=== PATIENT | male | born 1955 | race Hispanic/Latino ===

== ENCOUNTER 2019-02-01 22:55 | Inpatient (IN) | payer OTHER ==
--- NOTE | 2019-02-01 23:32 | Emergency Department Report ---
ED Shortness of Breath HPI - General Chief Complaint: Dyspnea/Respdistress Stated Complaint: DIFFICULTY IN BREATHING Time Seen by Provider: 02/01/19 23:22 Source: patient, EMS Mode of arrival: Stretcher Limitations: No Limitations - History of Present Illness Initial Comments: Patient is 64 years old male with history of diabetes and coronary artery dis ease status post stents. Patient presented to the emergency room via EMS for evaluation of respiratory distress and hypoxia. Patient initial oxygen saturation by EMS was 64%. Patient received albuterol 5 mg and he is oxygen saturation increased to 96%. Patient stated that he was doing well until this morning when he ate a big Mac with fries and have a smoke. Patient denied any chest pain, fever, nausea or vomiting. MD Complaint: shortness of breath - Related Data Allergies Allergy/AdvReac Type Severity Reaction Status Date / Time No Known Allergies Allergy Verified 02/02/19 00:42 ED Review of Systems ROS: Stated complaint: DIFFICULTY IN BREATHING Other details as noted in HPI Comment: All other systems reviewed and negative Constitutional: denies: chills, fever Respiratory: shortness of breath, SOB with exertion, SOB at rest, wheezing. denies: cough, orthopnea, stridor Cardiovascular: denies: chest pain, palpitations Gastrointestinal: denies: abdominal pain, nausea, vomiting, diarrhea, constipation, hematemesis, hematochezia Musculoskeletal: denies: back pain Neurological: denies: headache, weakness, numbness, paresthesias, confusion ED Past Medical Hx - Past Medical History Previous Medical History?: Yes Hx Heart Attack/AMI: Yes (stent placed) Hx Diabetes: Yes - Surgical History Past Surgical History?: Yes Additional Surgical History: stent placed - Social History Smoking Status: Current Every Day Smoker Substance Use Type: Alcohol ED Physical Exam - General Limitations: No Limitations General appearance: alert, in distress (moderate respiratory distress) - Head Head exam: Present: atraumatic, normocephalic, normal inspection - Eye Eye exam: Present: normal appearance, PERRL - ENT ENT exam: Present: normal exam, normal orophraynx, mucous membranes moist - Neck Neck exam: Present: normal inspection, full ROM. Absent: tenderness, meningismus, lymphadenopathy, thyromegaly - Respiratory Respiratory exam: Present: wheezes, rales, rhonchi. Absent: stridor, accessory muscle use, decreased breath sounds, prolonged expiratory - Cardiovascular Cardiovascular Exam: Present: regular rate, normal rhythm, normal heart sounds - GI/Abdominal GI/Abdominal exam: Present: soft, normal bowel sounds. Absent: distended, tenderness, guarding, rebound, rigid, organomegaly, mass, bruit, pulsatile mass - Extremities Exam Extremities exam: Present: normal inspection, full ROM, normal capillary refill. Absent: pedal edema, calf tenderness - Back Exam Back exam: Present: normal inspection, full ROM - Neurological Exam Neurological exam: Present: alert, oriented X3, CN II-XII intact, normal gait - Skin Skin exam: Present: warm, intact, normal color ED Course Vital Signs 02/01/19 02/01/19 02/01/19 23:09 23:20 23:30 Temperature 98.2 F Pulse Rate 101 H 99 H 94 H Respiratory 20 32 H 22 Rate Blood Pressure 148/75 149/72 O2 Sat by Pulse 94 94 96 Oximetry 02/01/19 02/02/19 02/02/19 23:45 00:00 00:02 Temperature Pulse Rate 94 H 94 H Respiratory 27 H 22 24 Rate Blood Pressure 164/69 169/75 O2 Sat by Pulse 94 94 95 Oximetry - Consultations Consultation #1: 02/02/19 00:33 I discussed the patient is Dr. Elkins from cardiology. He advised to admit the patient to hospitalist and he will follow-up with the patient. ED Medical Decision Making - Lab Data Result diagrams: 02/01/19 23:36 02/01/19 23:36 - EKG Data -: EKG Interpreted by Pa EKG shows normal: sinus rhythm Rate: normal - EKG Data Interpretation: no acute changes - Radiology Data Radiology results: report reviewed Chest x-ray is unremarkable. - Medical Decision Making Patient is 64 years old male with history of diabetes and coronary artery dise ase status post stents. Patient presented to the emergency room via EMS for evaluation of respiratory distress and hypoxia. Patient initial oxygen saturation by EMS was 64%. Patient received albuterol 5 mg and he is oxygen saturation increased to 96%. Patient stated that he was doing well until this morning when he ate a big Mac with fries and have a smoke. Patient denied any chest pain, fever, nausea or vomiting. Patient EKG is unremarkable was no ST elevation. Chest x-ray is negative for acute finding. Patient troponin is elevated to 0.26. I discussed the patient is Dr. Elkins, he stated to admit the patient and will follow up with the patient in the hospital. Patient developed atrial fibrillation with RVR with a heart rate of 138. I gave him a bolus of 10 mg Cardizem and started patient on Cardizem drip. I discussed the patient is Dr. Alessandra Barr, she agreed to admit the patient to medical service. Critical Care Time: Yes Critical care time in (mins) excluding proc time.: 30 Critical care attestation.: If time is entered above; I have spent that time in minutes in the direct care of this critically ill patient, excluding procedure time. ED Disposition Clinical Impression: Shortness of breath, CHF exacerbation, Atrial fibrillation with RVR, Hyper glycemia, Non-ST elevated myocardial infarction Disposition: OP ADMIT IP TO THIS HOSP Is pt being admited?: Yes Condition: Stable Instructions: Angina (ED)
[2019-02-01 23:50] LABS: Basophils # (Auto) 0.1 K/mm3 (0.0-0.1); Basophils % (Auto) 0.6 % (0.0-1.8); Eosinophils # (Auto) 0.1 K/mm3 (0.0-0.4); Eosinophils % (Auto) 0.6 % (0.0-4.3); Hematocrit 41.6 % (35.5-45.6); Hemoglobin 14.2 gm/dl (11.8-15.2); Lymphocytes # (Auto) 1.6 K/mm3 (1.2-5.4); Lymphocytes % (Auto) 13.6 % (13.4-35.0); Mean Corpuscular HGB Conc 34 % (32-34); Mean Corpuscular Volume 88 fl (84-94); Monocytes # (Auto) 0.7 K/mm3 (0.0-0.8); Monocytes % (Auto) 5.8 % (0.0-7.3); Platelet Count 191 K/mm3 (140-440); Red Blood Count 4.72 M/mm3 (3.65-5.03); Red Cell Distribution Width 12.8 % (13.2-15.2)
--- NOTE | 2019-02-02 00:03 | XRay Report ---
PROCEDURE: XR CHEST 1V AP TECHNIQUE: Chest radiograph single view. HISTORY: Dyspnea COMPARISONS: None . FINDINGS: Heart: Normal. Mediastinum/Vessels: Normal. Lungs/Pleural space: Lungs are expanded. There are no acute infiltrates. There is no pleural effusio n or pneumothorax.. Bony thorax: No acute osseous abnormality. Life support devices: None. IMPRESSION: No acute cardiopulmonary abnormality. This document is electronically signed by Papa Wallis MD., February 02 2019 12:01:32 AM ET
[2019-02-02 00:09] LABS: BUN/Creatinine Ratio 13; Blood Urea Nitrogen 15 mg/dL (9-20); Hemolysis Index 23
[2019-02-02 00:12] LABS: Alanine Aminotransferase 12 units/L (7-56); Albumin 3.4 g/dL (3.9-5)
[2019-02-02 00:13] LABS: Bilirubin,Direct < 0.2 mg/dL (0-0.2)
[2019-02-02 00:18] LABS: INR 0.87 (0.87-1.13)
[2019-02-02 00:19] LABS: Partial Thromboplastin Time 27.5 Sec. (24.2-36.6)
[2019-02-02] MEDS ORDERED: LASIX IV ONE (00:24)
[2019-02-02] MEDS ORDERED: HumuLIN R IV ONE (00:24)
[2019-02-02] MEDS ORDERED: BABY ASPIRIN PO ONE (00:25)
[2019-02-02] MEDS ORDERED: CARDIZEM IV ONE (00:38)
[2019-02-02] MEDS ORDERED: CARDIZEM 100 MG in D5W 80 ML IV SCH ×2 (01:00→14:00)
[2019-02-02] MEDS ORDERED: SODIUM CHLORIDE FLUSH SYRINGE 10 ML IV PRN (01:13)
[2019-02-02] MEDS ORDERED: ZOFRAN IV PRN (01:13)
[2019-02-02] MEDS ORDERED: LOVENOX SUB-Q SCH (01:16)
[2019-02-02] MEDS ORDERED: D50W (25GM) Syringe IV PRN (01:17)
[2019-02-02] MEDS ORDERED: LANTUS SUB-Q ONE (01:18)
--- NOTE | 2019-02-02 01:18 | History and Physical Report ---
History of Present Illness Date of examination: 02/02/19 History of present illness: 64-year-old man with a history of hypertension, diabetes, coronary artery disease comes emergency room with complaints of chest pain that has been intermittent over the last 3 weeks. Pain is in the left substernal area which she describes a sharp pain, constant today, intensity 6/10, on radiating into bilateral arms, left greater than right, relieved with IV morphine. He took several aspirins today, Tums without any significant improvement in his pain. Admits to shortness of breath, diaphoresis, nausea vomiting no palpitation. In the emergency room and was found to be in A. fib, started on a Cardizem drip Review of systems Constitutional: no weight loss, chills, fever Ears, eyes, nose, mouth and throat: no nasal congestion, no nasal discharge, no sinus pressure, no vision change, no red eye. Neck: No neck pain or rigidity. Cardiovascular: no palpitations Respiratory: no cough, +shortness of breath Gastrointestinal: no hematochezia, abdominal pain Genitourinary : no frequency , no hematuria Musculoskeletal: no joint swelling or muscle ache Integumentary: no rash, no pruritis Neurological: no parathesias, no focal weakness Endocrine: no cold or heat intolerance, no polyuria or polydipsia Hematologic/Lymphatic: no easy bruising, no easy bleeding, no gland swelling Allergic/Immunologic: no urticaria, no angioedema. PAST MEDICAL HISTORY:hypertension, diabetes, coronary artery disease PAST SURGICAL HISTORY: None SOCIAL HISTORY: Denies alcohol, drugs, smoke 1 pack daily FAMILY HISTORY: Hypertension Medications and Allergies Allergies Allergy/AdvReac Type Severity Reaction Status Date / Time No Known Allergies Allergy Verified 02/02/19 00:42 Active Meds: Active Medications Acetaminophen (Tylenol) 650 mg PO Q4H PRN PRN Reason: Pain MILD(1-3)/Fever >100.5/ESPINOZA Albuterol/Ipratropium (Duoneb *Not For Prn Use*) 1 ampul IH Q6HRT MELINA Dextrose (D50w (25gm) Syringe) 50 ml IV PRN PRN PRN Reason: Hypoglycemia Enoxaparin Sodium (Lovenox) 100 mg 1 mg/kg (100 mg) SUB-Q Q12H MELINA Diltiazem HCl 100 mg/ Dextrose 100 mls @ 5 mls/hr IV DIRECT MELINA; Protocol Insulin Human Lispro (Humalog) 0 unit SUB-Q ACHS MELINA; Protocol Morphine Sulfate (Morphine) 2 mg IV Q4H PRN PRN Reason: Pain, Moderate (4-6) Ondansetron HCl (Zofran) 4 mg IV Q4H PRN PRN Reason: Nausea And Vomiting Sodium Chloride (Sodium Chloride Flush Syringe 10 Ml) 10 ml IV BID MELINA Sodium Chloride (Sodium Chloride Flush Syringe 10 Ml) 10 ml IV PRN PRN PRN Reason: LINE FLUSH Exam - Physical Exam Narrative exam: General Apperance: The patient lying in bed, breathing comfortable HEENT: Normocephalic, atraumatic. Pupils equally round and reactive to light, EOMI, no sclericterus or JVD or thyromegaly or nodule. , no carotid bruit, mucous membranes moist, no exudate or erythema Heart: S1-S2, regular is rhythm Lungs: Clear to auscultation bilaterally, breathing comfortable Abdomen: Positive bowel sounds, soft, nontender, nondistended, no organomegaly Extremities: No edema cyanosis clubbing Skin: no rash, nodule, warm and dry Neuro: cranial nerves 2-12 intact, speech is fluent, motor/sensory intact - Constitutional Vitals: Temp Pulse Resp BP Pulse Ox 98.2 F 94 H 24 169/75 95 02/01/19 23:09 02/02/19 00:00 02/02/19 00:02 02/02/19 00:00 02/02/19 00:02 Results - Labs CBC & Chem 7: 02/02/19 04:31 02/02/19 04:31 Labs: Abnormal lab results 02/01/19 02/01/19 02/01/19 Range/Units 23:36 23:36 23:36 WBC 12.0 H (4.5-11.0) K/mm3 RDW 12.8 L (13.2-15.2) % Seg Neutrophils % 79.4 H (40.0-70.0) % Seg Neutrophils # 9.5 H (1.8-7.7) K/mm3 Sodium 134 L (137-145) mmol/L Chloride 97.9 L (98-107) mmol/L Carbon Dioxide 21 L (22-30) mmol/L Glucose 406 H (75-100) mg/dL Troponin T 0.263 H* (0.00-0.029) ng/mL NT-Pro-B Natriuret Pep 1505 H (0-900) pg/mL Albumin 3.4 L (3.9-5) g/dL - Imaging and Cardiology EKG: report reviewed Chest x-ray: report reviewed Assessment and Plan Assessment A. fib with RVR Unstable angina Coronary artery disease Diabetes, uncontrolled Plan Admit to medicine Continue Cardizem drip Check cardiac enzymes, TSH, echo, consult cardiology Check fingersticks, give a dose of Lantus now, and start sliding scale Start full dose Lovenox, aspirin, DVT prophylaxis
[2019-02-02 01:54] LABS: Creatine Kinase MB 5.5 ng/mL (0.0-4.0)
[2019-02-02 02:09] LABS: Chol/HDL Ratio 3.97 %; HDL Cholesterol 34 mg/dL (40-59); LDL Cholesterol,Direct 92 mg/dL (50-130)
[2019-02-02] MEDS ORDERED: LOVENOX SUB-Q ONE (02:35)
[2019-02-02] MEDS: DUONEB *Not for PRN Use IH SCH ×2 (03:02→10:18)
[2019-02-02] MEDS: TYLENOL PO PRN ×2 (03:25→21:25)
[2019-02-02 05:06] LABS: Basophils % (Auto) 0.4 % (0.0-1.8); Eosinophils % (Auto) 0.4 % (0.0-4.3); Hematocrit 41.8 % (35.5-45.6); Hemoglobin 14.2 gm/dl (11.8-15.2); Lymphocytes # (Auto) 2.2 K/mm3 (1.2-5.4); Lymphocytes % (Auto) 16.6 % (13.4-35.0); Mean Corpuscular HGB Conc 34 % (32-34); Mean Corpuscular Volume 88 fl (84-94); Monocytes # (Auto) 0.9 K/mm3 (0.0-0.8); Monocytes % (Auto) 7.3 % (0.0-7.3); Platelet Count 200 K/mm3 (140-440); Red Blood Count 4.75 M/mm3 (3.65-5.03); Red Cell Distribution Width 12.9 % (13.2-15.2)
[2019-02-02 05:29] LABS: BUN/Creatinine Ratio 14; Blood Urea Nitrogen 15 mg/dL (9-20); Calcium 8.9 mg/dL (8.4-10.2); Hemolysis Index 26
[2019-02-02 07:17] LABS: Creatine Kinase MB 5.2 ng/mL (0.0-4.0)
[2019-02-02] MEDS: HumaLOG SUB-Q SCH ×4 (07:58→20:30)
[2019-02-02] MEDS ORDERED: KIONEX PO ONE (09:19)
[2019-02-02] MEDS: SODIUM CHLORIDE FLUSH SYRINGE 10 ML IV SCH ×2 (09:34→21:25)
[2019-02-02] MEDS ORDERED: BABY ASPIRIN PO SCH (10:00)
--- NOTE | 2019-02-02 10:13 | Event Note ---
Date: 02/02/19 Patient seen and examined, reports improvement with chest pain. Has long standing hx of DM And also Diabetic Neuropathy with chronic feet numbness. Also Tobacco abuse. Counselling and Compliance provided for over 20 mins. Patient verbalized understanding. Awaiting Cardiology Input. Obtain and Reconcile Med Rec.
--- NOTE | 2019-02-02 11:00 | Consultation ---
History of Present Illness - Reason for Consult Consult date: 02/02/19 Shortness of breath, Afib with RVR Requesting physician: JUANA BARRERA - History of Present Illness 64 y/o male admitted with chest pain, shortness of breath and other nonspecific symptoms about 1 weeks time. Per patient several dietary indiscretions led to this admission. While in ED was found to be in Afib with RVR and placed on Dilt drip. He has since converted to sinus and was started on lovenox BID dosing therapy. Past History Past Medical History: CAD Social history: smoking Medications and Allergies Allergies Allergy/AdvReac Type Severity Reaction Status Date / Time No Known Allergies Allergy Verified 02/02/19 00:42 Active Meds: Active Medications Acetaminophen (Tylenol) 650 mg PO Q4H PRN PRN Reason: Pain MILD(1-3)/Fever >100.5/[place]PINOZA Last Admin: 02/02/19 03:25 Dose: 650 mg Documented by: Aspirin (Baby Aspirin) 81 mg PO QDAY MELINA Last Admin: 02/02/19 09:34 Dose: 81 mg Documented by: Dextrose (D50w (25gm) Syringe) 50 ml IV PRN PRN PRN Reason: Hypoglycemia Enoxaparin Sodium (Lovenox) 100 mg 1 mg/kg (100 mg) SUB-Q Q12H MELINA Last Admin: 02/02/19 02:41 Dose: 100 mg Documented by: Diltiazem HCl 100 mg/ Dextrose 100 mls @ 5 mls/hr IV DIRECT MELINA; Protocol Last Admin: 02/02/19 02:41 Dose: 5 mg/hr, 5 mls/hr Documented by: Insulin Human Isoph/Insulin Regular (Humulin 70/30) 10 unit SUB-Q BIDDIAB MELINA Insulin Human Lispro (Humalog) 0 unit SUB-Q ACHS MELINA; Protocol Last Admin: 02/02/19 07:58 Dose: 4 unit Documented by: Morphine Sulfate (Morphine) 2 mg IV Q4H PRN PRN Reason: Pain, Moderate (4-6) Ondansetron HCl (Zofran) 4 mg IV Q4H PRN PRN Reason: Nausea And Vomiting Sodium Chloride (Sodium Chloride Flush Syringe 10 Ml) 10 ml IV BID MELINA Last Admin: 02/02/19 09:34 Dose: 10 ml Documented by: Sodium Chloride (Sodium Chloride Flush Syringe 10 Ml) 10 ml IV PRN PRN PRN Reason: LINE FLUSH Review of Systems All systems: negative Exam - Constitutional Vitals: Temp Pulse Resp BP Pulse Ox 98.7 F 78 24 120/60 95 02/02/19 03:57 02/02/19 10:30 02/02/19 10:30 02/02/19 10:30 02/02/19 10:30 General appearance: Present: no acute distress, well-nourished - EENT Eyes: Present: PERRL, EOM intact ENT: hearing intact, clear oral mucosa - Neck Neck: Present: supple, normal ROM - Respiratory Respiratory effort: normal Respiratory: bilateral: diminished - Cardiovascular Rhythm: regular Heart Sounds: Present: S1 & S2 - Extremities Extremities: no ischemia, pulses intact - Abdominal General gastrointestinal: Present: soft, non-tender, normal bowel sounds Male genitourinary: Present: deferred - Rectal Rectal Exam: deferred - Integumentary Integumentary: Present: clear, warm, dry - Musculoskeletal Musculoskeletal: strength equal bilaterally - Psychiatric Psychiatric: appropriate mood/affect Results - Labs CBC & Chem 7: 02/02/19 04:31 02/02/19 04:31 Labs: Abnormal lab results 02/01/19 02/01/19 02/01/19 Range/Units 23:36 23:36 23:36 WBC 12.0 H (4.5-11.0) K/mm3 RDW 12.8 L (13.2-15.2) % [place] # (0.0-0.8) K/mm3 Seg Neutrophils % 79.4 H (40.0-70.0) % Seg Neutrophils # 9.5 H (1.8-7.7) K/mm3 Sodium 134 L (137-145) mmol/L Chloride 97.9 L (98-107) mmol/L Carbon Dioxide 21 L (22-30) mmol/L Glucose 406 H (75-100) mg/dL CK-MB (CK-2) (0.0-4.0) ng/mL Troponin T 0.263 H* (0.00-0.029) ng/mL NT-Pro-B Natriuret Pep 1505 H (0-900) pg/mL Albumin 3.4 L (3.9-5) g/dL HDL Cholesterol 34 L (40-59) mg/dL 02/02/19 02/02/19 02/02/19 Range/Units 01:30 02:27 04:31 WBC 13.0 H (4.5-11.0) K/mm3 RDW 12.9 L (13.2-15.2) % [place] # 0.9 H (0.0-0.8) K/mm3 Seg Neutrophils % 75.3 H (40.0-70.0) % Seg Neutrophils # 9.8 H (1.8-7.7) K/mm3 Sodium (137-145) mmol/L Chloride (98-107) mmol/L Carbon Dioxide (22-30) mmol/L Glucose (75-100) mg/dL CK-MB (CK-2) 5.5 H (0.0-4.0) ng/mL Troponin T 0.312 H* 0.300 H* (0.00-0.029) ng/mL NT-Pro-B Natriuret Pep (0-900) pg/mL Albumin (3.9-5) g/dL HDL Cholesterol (40-59) mg/dL 02/02/19 02/02/19 Range/Units 04:31 06:46 WBC (4.5-11.0) K/mm3 RDW (13.2-15.2) % [place] # (0.0-0.8) K/mm3 Seg Neutrophils % (40.0-70.0) % Seg Neutrophils # (1.8-7.7) K/mm3 Sodium 136 L (137-145) mmol/L Chloride (98-107) mmol/L Carbon Dioxide (22-30) mmol/L Glucose 315 H (75-100) mg/dL CK-MB (CK-2) 5.2 H (0.0-4.0) ng/mL Troponin T 0.354 H* (0.00-0.029) ng/mL NT-Pro-B Natriuret Pep (0-900) pg/mL Albumin (3.9-5) g/dL HDL Cholesterol (40-59) mg/dL - Imaging and Cardiology Chest x-ray: report reviewed (Unable to see image in our system but per report, it is clear) Assessment and Plan 64 y/o male with known heart disease, admitted with Afib with RVR and worsening shortness of breath with chest pain, found to have an NSTEMI 1. Continue Anticoagulation for afib 2. Switch to PO meds for rate control 3. Feed patient, cardiac diet, per cards, no plans for invasive measures today 4. F/U echo 5. Restart Home insulin Stable for transfer to [facility]
--- NOTE | 2019-02-02 12:10 | Consultation ---
History of Present Illness Consult date: 02/02/19 Consult reason: chest pain History of present illness: He has a history of CAD, status post PCI at [facility] in December 2017. He claims that he used his antiplatelet regimen for about a month thereafter. He has not had cardiac follow-up since then. Yesterday, after eating a big Mac and some fries, he developed progressive shortness of breath prompting presentation to the emergency department. He claims that he has had exertional dyspnea for the past 2 months. He has no orthopnea. In addition, he mentions that 2 months ago, he experienced precordial chest pain for a while and took multiple doses of aspirin. He thinks that the pain has been less frequent lately. Cardiac enzymes are positive for NSTEMI. In the ER, he was noted to be in rapid atrial fibrillation. He received IV Diltiazem and has converted to SR. Past History Past Medical History: CAD, diabetes, hypertension, hyperlipidemia Past Surgical History: PTCA (at [facility] in 01/10) Social history: smoking. denies: alcohol abuse Family history: denies: CAD Medications and Allergies Allergies Allergy/AdvReac Type Severity Reaction Status Date / Time No Known Allergies Allergy Verified 02/02/19 00:42 Active Meds: Active Medications Acetaminophen (Tylenol) 650 mg PO Q4H PRN PRN Reason: Pain MILD(1-3)/Fever >100.5/ESPINOZA Last Admin: 02/02/19 03:25 Dose: 650 mg Documented by: Aspirin (Baby Aspirin) 81 mg PO QDAY [facility] Last Admin: 02/02/19 09:34 Dose: 81 mg Documented by: Dextrose (D50w (25gm) Syringe) 50 ml IV PRN PRN PRN Reason: Hypoglycemia Enoxaparin Sodium (Lovenox) 100 mg 1 mg/kg (100 mg) SUB-Q Q12H MELINA Last Admin: 02/02/19 02:41 Dose: 100 mg Documented by: Diltiazem HCl 100 mg/ Dextrose 100 mls @ 5 mls/hr IV DIRECT MELINA; Protocol Last Infusion: 02/02/19 10:05 Dose: 5 mg/hr, 5 mls/hr Documented by: Insulin Human Isoph/Insulin Regular (Humulin 70/30) 10 unit SUB-Q BIDDIAB MELINA Last Admin: 02/02/19 11:03 Dose: 10 unit Documented by: Insulin Human Lispro (Humalog) 0 unit SUB-Q ACHS [facility]; Protocol Last Admin: 02/02/19 07:58 Dose: 4 unit Documented by: Morphine Sulfate (Morphine) 2 mg IV Q4H PRN PRN Reason: Pain, Moderate (4-6) Ondansetron HCl (Zofran) 4 mg IV Q4H PRN PRN Reason: Nausea And Vomiting Sodium Chloride (Sodium Chloride Flush Syringe 10 Ml) 10 ml IV BID [facility] Last Admin: 02/02/19 09:34 Dose: 10 ml Documented by: Sodium Chloride (Sodium Chloride Flush Syringe 10 Ml) 10 ml IV PRN PRN PRN Reason: LINE FLUSH Review of Systems Constitutional: no fever, no chills Ears, nose, mouth and throat: no ear pain, no ear discharge, no sore throat Cardiovascular: chest pain, shortness of breath, no orthopnea, no palpitations, no lightheadedness Respiratory: shortness of breath, dyspnea on exertion, no cough, no hemoptysis Gastrointestinal: no abdominal pain, no nausea, no vomiting, no diarrhea, no constipation Genitourinary Male: no dysuria, no urinary frequency Rectal: no pain, no bleeding Musculoskeletal: no neck stiffness, no neck pain, no myalgias Integumentary: no rash, no pruritis Neurological: no weakness, no parathesias, no headaches Endocrine: no cold intolerance, no heat intolerance Hematologic/Lymphatic: no easy bruising, no easy bleeding Allergic/Immunologic: no urticaria, no wheezing Physical Examination Vital Signs Last Vital Signs Temp 98.7 F 02/02/19 03:57 Pulse 80 02/02/19 11:30 Resp 21 02/02/19 11:30 BP 136/70 02/02/19 11:30 Pulse Ox 95 02/02/19 11:30 General appearance: no acute distress HEENT: Positive: EOMI, Normocephaly, Mucus Membranes Moist Neck: Positive: neck supple, trachea midline Cardiac: Positive: Reg Rate and Rhythm, S1/S2 Lungs: Positive: clear to auscultation Neuro: Positive: Grossly Intact Abdomen: Positive: Soft, Active Bowel Sounds. Negative: Tender Skin: Positive: Clear. Negative: Rash Musculoskeletal: Normal Range of Motion Extremities: Present: normal. Absent: edema Results 02/02/19 04:31 02/02/19 04:31 Cardiac Enzymes 02/01/19 02/02/19 02/02/19 Range/Units 23:36 01:30 06:46 AST 15 (5-40) units/L CK-MB (CK-2) 5.5 H 5.2 H (0.0-4.0) ng/mL Coagulation 02/01/19 Range/Units 23:36 PT 12.3 (12.2-14.9) Sec. INR 0.87 (0.87-1.13) APTT 27.5 (24.2-36.6) Sec. Lipids 02/01/19 Range/Units 23:36 Triglycerides 93 (2-149) mg/dL Cholesterol 135 (50-199) mg/dL HDL Cholesterol 34 L (40-59) mg/dL Cholesterol/HDL Ratio 3.97 % CBC 02/01/19 02/02/19 Range/Units 23:36 04:31 WBC 12.0 H 13.0 H (4.5-11.0) K/mm3 RBC 4.72 4.75 (3.65-5.03) M/mm3 Hgb 14.2 14.2 (11.8-15.2) gm/dl Hct 41.6 41.8 (35.5-45.6) % Plt Count 191 200 (140-440) K/mm3 Lymph # 1.6 2.2 (1.2-5.4) K/mm3 [place] # 0.7 0.9 H (0.0-0.8) K/mm3 Eos # 0.1 0.0 (0.0-0.4) K/mm3 Baso # 0.1 0.0 (0.0-0.1) K/mm3 Comprehensive Metabolic Panel 02/01/19 02/01/19 02/02/19 Range/Units 23:36 23:36 04:31 Sodium 134 L 136 L (137-145) mmol/L Potassium 3.7 3.7 (3.6-5.0) mmol/L Chloride 97.9 L 101.1 (98-107) mmol/L Carbon Dioxide 21 L 22 (22-30) mmol/L BUN 15 15 (9-20) mg/dL Creatinine 1.2 1.1 (0.8-1.5) mg/dL Glucose 406 H 315 H (75-100) mg/dL Calcium 9.0 8.9 (8.4-10.2) mg/dL Direct Bilirubin < 0.2 (0-0.2) mg/dL Indirect Bilirubin 0.0 mg/dL AST 15 (5-40) units/L ALT 12 (7-56) units/L Alkaline Phosphatase 90 (35-129) units/L Total Protein 6.8 (6.3-8.2) g/dL Albumin 3.4 L (3.9-5) g/dL - Imaging and Cardiology EKG: image reviewed EKG interpretations - Telemetry EKG Rhythm: Atrial Fibrillation (with RVR) - EKG Supraventricular dysrhythmia: atrial fibrillation (with RVR) Assessment and Plan Initiate anti-ischemic regimen and heparin. Cautious diuresis. Schedule for coronary angiography. Obtain echocardiogram. Obtain records from [facility]. - Patient Problems (1) Acute [id number] myocardial infarction Current Visit: Yes Status: Acute (2) Atrial fibrillation with RVR Current Visit: Yes Status: Acute (3) Acute HF (heart failure) Current Visit: Yes Status: Acute (4) CAD (coronary artery disease) Current Visit: Yes Status: Chronic Qualifiers: Coronary Disease-Associated Artery/Lesion type: [place] artery (5) Stented coronary artery Current Visit: Yes Status: Chronic (6) Diabetes mellitus Current Visit: Yes Status: Chronic Qualifiers: Diabetes mellitus type: type 2
[2019-02-02] MEDS ORDERED: NACL 0.9% 500 ML 500 ML IV SCH (13:00)
[2019-02-02] MEDS ORDERED: LOPRESSOR PO SCH (13:00)
[2019-02-02] MEDS ORDERED: HEPARIN/ 0.45% NACL-25,000 UNIT/500 ML 25,000 UNIT/500 ML BAG IV SCH (13:00)
[2019-02-02 15:40] LABS: Hematocrit 41.5 % (35.5-45.6); Hemoglobin 13.9 gm/dl (11.8-15.2)
[2019-02-02 15:54] LABS: INR 0.94 (0.87-1.13); Partial Thromboplastin Time 39.8 Sec. (24.2-36.6)
[2019-02-02] MEDS: MORPHINE IV PRN (16:18)
[2019-02-02] MEDS: NITRO-BID 2% TP SCH ×2 (18:28→22:58)
[2019-02-02] MEDS: LOPRESSOR PO SCH (21:26)
[2019-02-02 21:59] LABS: Creatine Kinase MB 4.2 ng/mL (0.0-4.0)
[2019-02-03 05:03] LABS: Basophils # (Auto) 0.1 K/mm3 (0.0-0.1); Basophils % (Auto) 0.5 % (0.0-1.8); Eosinophils # (Auto) 0.1 K/mm3 (0.0-0.4); Eosinophils % (Auto) 0.5 % (0.0-4.3); Hematocrit 40.4 % (35.5-45.6); Hemoglobin 13.7 gm/dl (11.8-15.2); Lymphocytes # (Auto) 1.9 K/mm3 (1.2-5.4); Lymphocytes % (Auto) 14.3 % (13.4-35.0); Mean Corpuscular HGB Conc 34 % (32-34); Mean Corpuscular Volume 87 fl (84-94); Monocytes # (Auto) 1.3 K/mm3 (0.0-0.8); Monocytes % (Auto) 9.7 % (0.0-7.3); Platelet Count 198 K/mm3 (140-440); Red Blood Count 4.63 M/mm3 (3.65-5.03); Red Cell Distribution Width 12.6 % (13.2-15.2)
[2019-02-03 05:10] LABS: INR 0.94 (0.87-1.13)
[2019-02-03 05:24] LABS: BUN/Creatinine Ratio 20; Blood Urea Nitrogen 22 mg/dL (9-20); Calcium 8.4 mg/dL (8.4-10.2); Hemolysis Index 3
[2019-02-03] MEDS: HumaLOG SUB-Q SCH ×4 (08:58→21:07)
[2019-02-03] MEDS: SODIUM CHLORIDE FLUSH SYRINGE 10 ML IV SCH ×2 (10:00→21:07)
[2019-02-03] MEDS ORDERED: ASPIRIN PO SCH (10:00)
--- NOTE | 2019-02-03 10:32 | Progress Note ---
Assessment and Plan Assessment and plan: 64-year-old man with a history of hypertension, diabetes, coronary artery disease comes emergency room with complaints of chest pain that has been intermittent over the last 3 weeks. Pain is in the left substernal area which she describes a sharp pain, constant today, intensity 6/10, on radiating into b ilateral arms, left greater than right, relieved with IV morphine. He took several aspirins today, Tums without any significant improvement in his pain. Admits to shortness of breath, diaphoresis, nausea vomiting no palpitation. In the emergency room and was found to be in A. fib, started on a Cardizem drip. Patient initially was admitted to the ICU was subsequently downgraded to telemetry with initiation of amiodarone on Lopressor with this constipation on the Cardizem drip. * Patient for cardiac cath today, discussed with Cardiology noted CAD, awaiting full report but will need to be started on coumadin prior to discharge * ECHO reviewed- EF 25-30%, mild MR, trace TR. A. fib with RVR Unstable angina NSTEMI Acute Systolic Heart failure Cardiomyopathy ?ischemic Coronary artery disease S/P Stent In the past Dyslipidemia Diabetes, uncontrolled Plan Continue supportive care Continue ACEI, BB, ASA and LASIX Start Coumadin Continue give a dose of Lantus now, and start sliding scale Amiodranone DVT prophylaxis History Interval history: Patient seen and examined today, reports shortness of breath but no further chest pain today. Hospitalist Physical - Physical exam Narrative exam: VITAL SIGNS: Reviewed. GENERAL: The patient appeared well nourished and normally developed, Vital signs as documented. HEAD: No signs of head trauma. EYES: Pupils are equal. Extraocular motions intact. EARS: Hearing grossly intact. MOUTH: Oropharynx is normal. NECK: No adenopathy, no JVD. CHEST: Chest with clear breath sounds bilaterally. No wheezes, rales, or rhonc hi. CARDIAC: Regular rate and rhythm. S1 and S2, without murmurs, gallops, or rubs. VASCULAR: No Edema. Peripheral pulses normal and equal in all extremities. ABDOMEN: Soft, non tender and non distended. No rebound or guarding, and no masses palpated. Bowel Sounds normal. MUSCULOSKELETAL: Good range of motion of all major joints. Extremities without clubbing, cyanosis or edema. NEUROLOGIC EXAM: Alert and oriented x 3 No focal sensory or strength deficits. Speech normal. Follows commands. PSYCHIATRIC: Mood normal. SKIN: No rash or lesions. - Constitutional Vitals: Temp Pulse Resp BP Pulse Ox 99.1 F 88 20 152/86 95 02/03/19 04:18 02/03/19 04:18 02/03/19 04:18 02/03/19 04:18 02/03/19 04:18 General appearance: Present: no acute distress Results - Labs CBC & Chem 7: 02/03/19 04:31 02/03/19 04:31 Labs: Laboratory Last Values WBC 13.2 K/mm3 (4.5-11.0) H 02/03/19 04:31 RBC 4.63 M/mm3 (3.65-5.03) 02/03/19 04:31 Hgb 13.7 gm/dl (11.8-15.2) 02/03/19 04:31 Hct 40.4 % (35.5-45.6) 02/03/19 04:31 MCV 87 fl (84-94) 02/03/19 04:31 MCH 30 pg (28-32) 02/03/19 04:31 MCHC 34 % (32-34) 02/03/19 04:31 RDW 12.6 % (13.2-15.2) L 02/03/19 04:31 Plt Count 198 K/mm3 (140-440) 02/03/19 04:31 Lymph % (Auto) 14.3 % (13.4-35.0) 02/03/19 04:31 [place] % (Auto) 9.7 % (0.0-7.3) H 02/03/19 04:31 Eos % (Auto) 0.5 % (0.0-4.3) 02/03/19 04:31 Baso % (Auto) 0.5 % (0.0-1.8) 02/03/19 04:31 Lymph # 1.9 K/mm3 (1.2-5.4) 02/03/19 04:31 [place] # 1.3 K/mm3 (0.0-0.8) H 02/03/19 04:31 Eos # 0.1 K/mm3 (0.0-0.4) 02/03/19 04:31 Baso # 0.1 K/mm3 (0.0-0.1) 02/03/19 04:31 Seg Neutrophils % 75.0 % (40.0-70.0) H 02/03/19 04:31 Seg Neutrophils # 9.9 K/mm3 (1.8-7.7) H 02/03/19 04:31 PT 13.1 Sec. (12.2-14.9) 02/03/19 04:31 INR 0.94 (0.87-1.13) 02/03/19 04:31 APTT 39.8 Sec. (24.2-36.6) H 02/02/19 15:17 Heparin Anti-Xa Level < 0.10 U.I./ml (0.3-0.7) L 02/03/19 06:40 Sodium 137 mmol/L (137-145) 02/03/19 04:31 Potassium 3.7 mmol/L (3.6-5.0) 02/03/19 04:31 Chloride 102.8 mmol/L (98-107) 02/03/19 04:31 Carbon Dioxide 22 mmol/L (22-30) 02/03/19 04:31 Anion Gap 16 mmol/L 02/03/19 04:31 BUN 22 mg/dL (9-20) H 02/03/19 04:31 Creatinine 1.1 mg/dL (0.8-1.5) 02/03/19 04:31 Estimated GFR > 60 ml/min 02/03/19 04:31 BUN/Creatinine Ratio 20 % 02/03/19 04:31 Glucose 150 mg/dL (75-100) H 02/03/19 04:31 POC Glucose 155 (70-105) H 02/02/19 18:10 Calcium 8.4 mg/dL (8.4-10.2) 02/03/19 04:31 Total Bilirubin 0.20 mg/dL (0.1-1.2) 02/01/19 23:36 Direct Bilirubin < 0.2 mg/dL (0-0.2) 02/01/19 23:36 Indirect Bilirubin 0.0 mg/dL 02/01/19 23:36 AST 15 units/L (5-40) 02/01/19 23:36 ALT 12 units/L (7-56) 02/01/19 23:36 Alkaline Phosphatase 90 units/L (35-129) 02/01/19 23:36 Total Creatine Kinase 129 units/L (55-170) 02/02/19 21:12 CK-MB (CK-2) 4.2 ng/mL (0.0-4.0) H 02/02/19 21:12 CK-MB (CK-2) Rel Index 3.2 (0-4) 02/02/19 21:12 Troponin T 0.383 ng/mL (0.00-0.029) H* 02/03/19 04:31 NT-Pro-B Natriuret Pep 1505 pg/mL (0-900) H 02/01/19 23:36 Total Protein 6.8 g/dL (6.3-8.2) 02/01/19 23:36 Albumin 3.4 g/dL (3.9-5) L 02/01/19 23:36 Albumin/Globulin Ratio 1.0 % 02/01/19 23:36 Triglycerides 93 mg/dL (2-149) 02/01/19 23:36 Cholesterol 135 mg/dL (50-199) 02/01/19 23:36 LDL Cholesterol Direct 92 mg/dL (50-130) 02/01/19 23:36 HDL Cholesterol 34 mg/dL (40-59) L 02/01/19 23:36 Cholesterol/HDL Ratio 3.97 % 02/01/19 23:36 TSH 1.210 mlU/mL (0.270-4.200) 02/02/19 04:31
[2019-02-03] MEDS ORDERED: ASPIRIN ONE (11:25)
--- NOTE | 2019-02-03 11:38 | Progress Note ---
Assessment and Plan Echo reviewed- EF 25-30%, mild MR, trace TR. Initiate lisinopril in setting of CMP. Pt is back in Afib with RVR. Optimize HR - increase lopressor dosage and initiate amio. Pt with SOB and rales on evaluation. Initiate scheduled IV diuretics. Proceed with LHC. Await findings. The patient has been seen in conjunction with Dr. Cantor who agrees with the assessment and plan of care. - Patient Problems (1) Acute ziq-FJ-xjhzjznev myocardial infarction Current Visit: Yes Status: Acute (2) Paroxysmal atrial fibrillation with RVR Current Visit: Yes Status: Acute (3) Acute HFrEF (heart failure with reduced ejection fraction) Current Visit: Yes Status: Acute (4) Cardiomyopathy Current Visit: Yes Status: Chronic (5) CAD (coronary artery disease) Current Visit: Yes Status: Chronic Qualifiers: Coronary Disease-Associated Artery/Lesion type: [place] artery (6) Stented coronary artery Current Visit: Yes Status: Chronic Subjective Date of service: 02/03/19 Principal diagnosis: NSTEMI; AFib; HF Interval history: pt resting in bed, awaiting LHC. c/o SOB overnight, no current chest pain. tele reviewed - pt back in AFib with RVR. Objective Last Vital Signs Temp 99.1 F 02/03/19 04:18 Pulse 88 02/03/19 04:18 Resp 20 02/03/19 04:18 BP 152/86 02/03/19 04:18 Pulse Ox 95 02/03/19 04:18 - Physical Examination General: No Apparent Distress HEENT: Positive: EOMI, Normocephaly, Mucus Membranes Moist Neck: Positive: neck supple, trachea midline Cardiac: Positive: irregularly irregular, S1/S2, Tachycardia Lungs: Positive: Rales Neuro: Positive: Grossly Intact Abdomen: Positive: Soft, Active Bowel Sounds. Negative: Tender Skin: Positive: Clear. Negative: Rash Musculoskeletal: Normal Range of Motion Extremities: Present: normal. Absent: edema - Labs and Meds Cardiac Enzymes 02/02/19 Range/Units 21:12 CK-MB (CK-2) 4.2 H (0.0-4.0) ng/mL Coagulation 02/02/19 02/03/19 Range/Units 15:17 04:31 PT 13.1 13.1 (12.2-14.9) Sec. INR 0.94 0.94 (0.87-1.13) APTT 39.8 H (24.2-36.6) Sec. CBC 02/02/19 02/03/19 Range/Units 15:17 04:31 WBC 13.2 H (4.5-11.0) K/mm3 RBC 4.63 (3.65-5.03) M/mm3 Hgb 13.9 13.7 (11.8-15.2) gm/dl Hct 41.5 40.4 (35.5-45.6) % Plt Count 214 198 (140-440) K/mm3 Lymph # 1.9 (1.2-5.4) K/mm3 [place] # 1.3 H (0.0-0.8) K/mm3 Eos # 0.1 (0.0-0.4) K/mm3 Baso # 0.1 (0.0-0.1) K/mm3 Comprehensive Metabolic Panel 02/03/19 Range/Units 04:31 Sodium 137 (137-145) mmol/L Potassium 3.7 (3.6-5.0) mmol/L Chloride 102.8 (98-107) mmol/L Carbon Dioxide 22 (22-30) mmol/L BUN 22 H (9-20) mg/dL Creatinine 1.1 (0.8-1.5) mg/dL Glucose 150 H (75-100) mg/dL Calcium 8.4 (8.4-10.2) mg/dL - Imaging and Cardiology EKG: image reviewed - Telemetry EKG Rhythm: Atrial Fibrillation
[2019-02-03] MEDS ORDERED: XYLOCAINE 2% INFILTRATI ONE (12:08)
[2019-02-03] MEDS ORDERED: CALAN ONE (12:08)
[2019-02-03] MEDS ORDERED: NITROGLYCERIN SYRINGE 3 ML ONE (12:08)
[2019-02-03] MEDS ORDERED: HEPARIN/NS 5000 UNIT/500ML(CATH LAB) 1,000 ML IR ONE (12:08)
--- NOTE | 2019-02-03 12:14 | Progress Note ---
Assessment and Plan 64 y/o male with known heart disease, admitted with Afib with RVR and worsening shortness of breath with chest pain, found to have an NSTEMI 1. Spoke with Cards, will continue to follow post-cath given severe heart failure and possible CAD. he may need ICU care again. 2. follow up cath results. Subjective Date of service: 02/03/19 Principal diagnosis: NSTEMI; AFib; HF Interval history: Back in Afib and now is on the way to rn cardiac cath. Echo revealed systolic heart failure and patient was short of breath this am. Objective - Constitutional Vitals: Vital Signs - 12hr 02/03/19 02/03/19 01:50 04:18 Temperature 99.1 F Pulse Rate 96 H 88 Respiratory 20 Rate Blood Pressure 152/86 O2 Sat by Pulse 95 Oximetry - Labs CBC & Chem 7: 02/03/19 04:31 02/03/19 04:31 Labs: Abnormal lab results 02/02/19 02/02/19 02/02/19 Range/Units 02:47 03:37 07:32 WBC (4.5-11.0) K/mm3 RDW (13.2-15.2) % [place] % (Auto) (0.0-7.3) % [place] # (0.0-0.8) K/mm3 Seg Neutrophils % (40.0-70.0) % Seg Neutrophils # (1.8-7.7) K/mm3 APTT (24.2-36.6) Sec. Heparin Anti-Xa Level (0.3-0.7) U.I./ml BUN (9-20) mg/dL Glucose (75-100) mg/dL POC Glucose 316 H 319 H 227 H (70-105) CK-MB (CK-2) (0.0-4.0) ng/mL Troponin T (0.00-0.029) ng/mL 02/02/19 02/02/19 02/02/19 Range/Units 12:07 15:17 16:14 WBC (4.5-11.0) K/mm3 RDW (13.2-15.2) % [place] % (Auto) (0.0-7.3) % [place] # (0.0-0.8) K/mm3 Seg Neutrophils % (40.0-70.0) % Seg Neutrophils # (1.8-7.7) K/mm3 APTT 39.8 H (24.2-36.6) Sec. Heparin Anti-Xa Level (0.3-0.7) U.I./ml BUN (9-20) mg/dL Glucose (75-100) mg/dL POC Glucose 185 H 262 H (70-105) CK-MB (CK-2) (0.0-4.0) ng/mL Troponin T (0.00-0.029) ng/mL 02/02/19 02/02/19 02/03/19 Range/Units 18:10 21:12 04:31 WBC 13.2 H (4.5-11.0) K/mm3 RDW 12.6 L (13.2-15.2) % [place] % (Auto) 9.7 H (0.0-7.3) % [place] # 1.3 H (0.0-0.8) K/mm3 Seg Neutrophils % 75.0 H (40.0-70.0) % Seg Neutrophils # 9.9 H (1.8-7.7) K/mm3 APTT (24.2-36.6) Sec. Heparin Anti-Xa Level (0.3-0.7) U.I./ml BUN (9-20) mg/dL Glucose (75-100) mg/dL POC Glucose 155 H (70-105) CK-MB (CK-2) 4.2 H (0.0-4.0) ng/mL Troponin T 0.429 H* D (0.00-0.029) ng/mL 02/03/19 02/03/19 02/03/19 Range/Units 04:31 04:31 06:40 WBC (4.5-11.0) K/mm3 RDW (13.2-15.2) % [place] % (Auto) (0.0-7.3) % [place] # (0.0-0.8) K/mm3 Seg Neutrophils % (40.0-70.0) % Seg Neutrophils # (1.8-7.7) K/mm3 APTT (24.2-36.6) Sec. Heparin Anti-Xa Level < 0.10 L < 0.10 L (0.3-0.7) U.I./ml BUN 22 H (9-20) mg/dL Glucose 150 H (75-100) mg/dL POC Glucose (70-105) CK-MB (CK-2) (0.0-4.0) ng/mL Troponin T 0.383 H* (0.00-0.029) ng/mL Medications & Allergies - Medications Allergies/Adverse Reactions: Allergies No Known Allergies Allergy (Verified 02/02/19 00:42) Home Medications: Home Medications Medication Instructions Recorded Confirmed Last Taken Type No Known Home Medications [No 02/03/19 02/03/19 Unknown History Reported Home Medications] Active Medications: Generic Name Dose Route Start Last Admin Trade Name Freq PRN Reason Stop Dose Admin Acetaminophen 650 mg 02/02/19 01:13 02/02/19 21:25 Tylenol PO 650 mg Q4H PRN Administration Pain MILD(1-3)/Fever >100.5/ESPINOZA Amiodarone HCl 400 mg 02/03/19 12:00 Cordarone PO BID [facility] Aspirin 325 mg 02/03/19 10:00 02/03/19 11:25 Aspirin PO 325 mg QDAY MELINA Administration Atorvastatin Calcium 80 mg 02/02/19 22:00 02/02/19 21:26 Lipitor PO 80 mg QHS [facility] Administration Dextrose 50 ml 02/02/19 01:17 D50w (25gm) Syringe IV PRN PRN Hypoglycemia Furosemide 40 mg 02/03/19 18:00 Lasix IV 0600,1800 [facility] Insulin Human Isoph/Insulin Regular 10 unit 02/02/19 11:00 02/02/19 18:27 Humulin 70/30 SUB-Q 10 unit BIDDIAB [facility] Administration Insulin Human Lispro 0 unit 02/02/19 07:30 02/02/19 20:30 Humalog SUB-Q Not Given ACHS [facility] Protocol Lisinopril 10 mg 02/04/19 10:00 Zestril PO QDAY [facility] Metoprolol Tartrate 25 mg 02/03/19 12:00 Lopressor PO Q6H [facility] Morphine Sulfate 2 mg 02/02/19 01:13 02/02/19 16:18 Morphine IV 2 mg Q4H PRN Administration Pain, Moderate (4-6) Nitroglycerin 0.5 inch 02/02/19 16:34 02/02/19 22:58 Nitro-Bid 2% TP Not Given TIDNTG [facility] Protocol Ondansetron HCl 4 mg 02/02/19 01:13 Zofran IV Q4H PRN Nausea And Vomiting Sodium Chloride 10 ml 02/02/19 10:00 02/02/19 21:25 Sodium Chloride Flush Syringe 10 Ml IV 10 ml BID MELINA Administration Sodium Chloride 10 ml 02/02/19 01:13 Sodium Chloride Flush Syringe 10 Ml IV PRN PRN LINE FLUSH
[2019-02-03] MEDS ORDERED: VERSED ONE (12:23)
[2019-02-03] MEDS ORDERED: SUBLIMAZE ONE (12:23)
[2019-02-03] MEDS: HEPARIN 10,000 UNITS/10 ML ONE ×4 (12:32→13:22)
[2019-02-03] MEDS ORDERED: NACL 0.9% 500 ML 500 ML ONE (12:43)
[2019-02-03] MEDS ORDERED: ALUM-MAG HYDROX-SIMETH 200-200-20MG/5ML ONE (13:04)
[2019-02-03] MEDS ORDERED: PLAVIX ONE (13:04)
--- NOTE | 2019-02-03 15:24 | Progress Note ---
Assessment and Plan Assessment and plan: [place] reviewed- EF 25-30%, mild MR, trace TR. Initiate lisinopril in setting of CMP. Pt is back in Afib with RVR. Optimize HR - increase lopressor dosage and initiate amio. Pt with SOB and rales on evaluation. Initiate scheduled IV diuretics. Proceed with C. Await findings. The patient has been seen in conjunction with Dr. Cantor who agrees with the assessment and plan of care. - Patient Problems (1) Acute dek-AO-taehhuuqt myocardial infarction Current Visit: Yes Status: Acute (2) Paroxysmal atrial fibrillation with RVR Current Visit: Yes Status: Acute (3) Acute HFrEF (heart failure with reduced ejection fraction) Current Visit: Yes Status: Acute (4) Cardiomyopathy Current Visit: Yes Status: Chronic (5) CAD (coronary artery disease) Current Visit: Yes Status: Chronic Qualifiers: Coronary Disease-Associated Artery/Lesion type: [place] artery (6) Stented coronary artery Current Visit: Yes Status: Chronic History Interval history: Patient seen and examined today, reports shortness of breath but no further chest pain today. Hospitalist Physical - Constitutional Vitals: Temp Pulse Resp BP Pulse Ox 98.2 F 88 18 149/79 93 02/03/19 13:47 02/03/19 15:15 02/03/19 15:15 02/03/19 15:15 02/03/19 15:15 General appearance: Present: no acute distress Results - Labs CBC & Chem 7: 02/03/19 04:31 02/03/19 04:31 Labs: Laboratory Last Values WBC 13.2 K/mm3 (4.5-11.0) H 02/03/19 04:31 RBC 4.63 M/mm3 (3.65-5.03) 02/03/19 04:31 Hgb 13.7 gm/dl (11.8-15.2) 02/03/19 04:31 Hct 40.4 % (35.5-45.6) 02/03/19 04:31 MCV 87 fl (84-94) 02/03/19 04:31 MCH 30 pg (28-32) 02/03/19 04:31 MCHC 34 % (32-34) 02/03/19 04:31 RDW 12.6 % (13.2-15.2) L 02/03/19 04:31 Plt Count 198 K/mm3 (140-440) 02/03/19 04:31 Lymph % (Auto) 14.3 % (13.4-35.0) 02/03/19 04:31 [place] % (Auto) 9.7 % (0.0-7.3) H 02/03/19 04:31 Eos % (Auto) 0.5 % (0.0-4.3) 02/03/19 04:31 Baso % (Auto) 0.5 % (0.0-1.8) 02/03/19 04:31 Lymph # 1.9 K/mm3 (1.2-5.4) 02/03/19 04:31 [place] # 1.3 K/mm3 (0.0-0.8) H 02/03/19 04:31 Eos # 0.1 K/mm3 (0.0-0.4) 02/03/19 04:31 Baso # 0.1 K/mm3 (0.0-0.1) 02/03/19 04:31 Seg Neutrophils % 75.0 % (40.0-70.0) H 02/03/19 04:31 Seg Neutrophils # 9.9 K/mm3 (1.8-7.7) H 02/03/19 04:31 PT 13.1 Sec. (12.2-14.9) 02/03/19 04:31 INR 0.94 (0.87-1.13) 02/03/19 04:31 APTT 39.8 Sec. (24.2-36.6) H 02/02/19 15:17 Activated Clotting Time 296 (74-137) H 02/03/19 13:32 Heparin Anti-Xa Level < 0.10 U.I./ml (0.3-0.7) L 02/03/19 06:40 Sodium 137 mmol/L (137-145) 02/03/19 04:31 Potassium 3.7 mmol/L (3.6-5.0) 02/03/19 04:31 Chloride 102.8 mmol/L (98-107) 02/03/19 04:31 Carbon Dioxide 22 mmol/L (22-30) 02/03/19 04:31 Anion Gap 16 mmol/L 02/03/19 04:31 BUN 22 mg/dL (9-20) H 02/03/19 04:31 Creatinine 1.1 mg/dL (0.8-1.5) 02/03/19 04:31 Estimated GFR > 60 ml/min 02/03/19 04:31 BUN/Creatinine Ratio 20 % 02/03/19 04:31 Glucose 150 mg/dL (75-100) H 02/03/19 04:31 POC Glucose 155 (70-105) H 02/02/19 18:10 Calcium 8.4 mg/dL (8.4-10.2) 02/03/19 04:31 Total Bilirubin 0.20 mg/dL (0.1-1.2) 02/01/19 23:36 Direct Bilirubin < 0.2 mg/dL (0-0.2) 02/01/19 23:36 Indirect Bilirubin 0.0 mg/dL 02/01/19 23:36 AST 15 units/L (5-40) 02/01/19 23:36 ALT 12 units/L (7-56) 02/01/19 23:36 Alkaline Phosphatase 90 units/L (35-129) 02/01/19 23:36 Total Creatine Kinase 129 units/L (55-170) 02/02/19 21:12 CK-MB (CK-2) 4.2 ng/mL (0.0-4.0) H 02/02/19 21:12 CK-MB (CK-2) Rel Index 3.2 (0-4) 02/02/19 21:12 Troponin T 0.383 ng/mL (0.00-0.029) H* 02/03/19 04:31 NT-Pro-B Natriuret Pep 1505 pg/mL (0-900) H 02/01/19 23:36 Total Protein 6.8 g/dL (6.3-8.2) 02/01/19 23:36 Albumin 3.4 g/dL (3.9-5) L 02/01/19 23:36 Albumin/Globulin Ratio 1.0 % 02/01/19 23:36 Triglycerides 93 mg/dL (2-149) 02/01/19 23:36 Cholesterol 135 mg/dL (50-199) 02/01/19 23:36 LDL Cholesterol Direct 92 mg/dL (50-130) 02/01/19 23:36 HDL Cholesterol 34 mg/dL (40-59) L 02/01/19 23:36 Cholesterol/HDL Ratio 3.97 % 02/01/19 23:36 TSH 1.210 mlU/mL (0.270-4.200) 02/02/19 04:31
[2019-02-03] MEDS: LOPRESSOR PO SCH ×2 (16:01→17:01)
[2019-02-03] MEDS: CORDARONE PO SCH ×2 (16:55→21:06)
[2019-02-03] MEDS ORDERED: COUMADIN PO SCH (17:00)
[2019-02-03] MEDS: LASIX IV SCH (17:02)
--- NOTE | 2019-02-03 18:29 | Cardiac Catherization Report ---
THIS IS A LEFT HEART CATHETERIZATION WITH INTRAVASCULAR ULTRASOUND WITH PERCUTANEOUS CORONARY INTERVENTIONAL REPORT CLINICAL INFORMATION: This is a 64-year-old gentleman who has been noncompliant with medication. Has diabetes, has new onset atrial fibrillation with advmvhnb-oo-nikyre LV dysfunction, presents with non-ST elevation myocardial infarction, history of coronary artery disease with PCI at [place], last year. He took only short duration of antiplatelet therapy, presents back with shortness of breath with exertion and is here for left heart catheterization. The patient is able to lie down flat. He is currently chest pain free. The patient was under moderate sedation. Total sedation time was 57 minutes, started at 12:28 p.m. and finished at 13:23 p.m.; 0.5 mg Versed and 25 mcg of fentanyl was given. Left heart catheterization was performed via the right radial artery, sterile technique, local anesthesia, 6-Cuban radial sheath inserted. PROCEDURE FINDINGS: 1. Left system engaged with JL3.5 catheter. Left main is large and patent, bifurcates to large LAD. Proximal stent is patent, mid becomes medium caliber vessels patent with mid stent pain and distal becomes small caliber vessel patent, small diagonals are patent. Ramus is a small caliber vessel, diffusely diseased with 80-90% of a 1.5 mm vessel. Circumflex and AV groove is a medium caliber vessel, patent with mild luminal irregularities, then OM1 is a small caliber vessel, 1.5 mm diffusely diseased patent. OM2 is 100%. Distal circ and AV groove is patent. RCA engaged with JR4 catheter. It is a dominant vessel, moderate to severe tortuosity, proximal 90%, mid diffuse 60%, distal patent, but it bifurcates a small caliber PDA that has a proximal 80% of a less than 2 mm vessel and PLV is patent with mild luminal irregularities. LV gram done in [facility] view shows jzohfqie-fb-ynnkic LV dysfunction, EF 25-30%. LVEDP of 24 mmHg. LV was 140. Aortic is 135/73, no gradient across the aortic valve on pullback. In view of patent LAD stents, we felt the culprit vessel was the circumflex. So once ACT was obtained, engaged the left system with EBU 3.5 guiding catheter with PCI/intravascular ultrasound of the OM2. 2. Unable cross the [place] with a Weikert wire was able to cross with a [employer] 50, then predilated with two 2.0 x 12 balloon x2 inflations at 15 atmospheres each, restore [place] 3 flow and showed proximal stenosis. 3. Stented intravascular ultrasound showed diffuse disease with distal reference vessel 2.25 x 2.5. 4. Stent to the proximal OM2 with a drug-eluting Resolute Andrew 2.25 x 15 atmospheres. Excellent angiographic result. No dissection, [place] 3 flow into a long OM2 that is patent now, distally is diffusely diseased, small caliber. Coronary wire was removed. Multiple angiograms with excellent angiographic result. No dissection or perforations. Then we turned our attention to the RCA which is diffusely diseased, felt the proximal was the most significant lesion with mid just diffuse disease, did not want to put a full metal jacket over the stenting into the RCA especially with a small runoff. 1. PCI of the RCA. Engaged with JR4 catheter, 6-Cuban with sideholes. 2. Crossed and distal PDA with short Weikert wire. 3. Predilated with 2.0 x 12 at 15 atmospheres x 2 inflations. 4. He had to use a irma wire All Start in order to deliver three 5 x 18 mm Xience Tamiko stent, delivered it and removed the irma wire and inflated that at 15 atmospheres. Excellent angiographic result, reduced stenosis from 90% down to 0 with no dissection or perforation, mid still 60%, distal patent. Small PDA, PLV with an 80% lesion of a 2-0 vessel and PDA patent. Remove coronary wire. Continued [place] 3 flow. No dissection or perforation noted. The patient still continued to chest pain free. 5. A 6-Cuban guiding catheter taken over guidewire, 6-Cuban radial sheath was discontinued. Radial band applied. No hematoma, no bleeding. SUMMARY: 1. Left main patent, LAD proximal stent patent, mid stent patent, circumflex patent. Ramus small caliber, less than 1.5 mm vessel, diffusely diseased. OM1 so patent. 2. Successful PCI of OM2 with a drug-eluting Resolute Andrew 2.25 x 15. 3. PCI of the proximal RCA 3.5 x 18 mm at 15 atmospheres mid 60% and small caliber PLV, which has 80% lesion. PDA patent. 4. Fbzrjikg-lm-zfdzyp LV dysfunction. The patient will be on aspirin, Plavix and Coumadin, nitrates for small vessel disease. Beta parth therapy, MARY inhibitors and needs aggressive risk factor modification with diabetes and hyperlipidemia. Needs better dietary discretion, results were extensively detailed with the patient and primary doctor. JOB# [id number] SANDRA/NTS
[2019-02-03] MEDS: MORPHINE IV PRN (21:06)
[2019-02-04] MEDS: LOPRESSOR PO SCH ×5 (00:14→22:04)
[2019-02-04] MEDS: NITRO-BID 2% TP SCH ×2 (05:24→05:31)
[2019-02-04] MEDS: LASIX IV SCH ×2 (05:38→17:52)
[2019-02-04 05:49] LABS: Basophils # (Auto) 0.1 K/mm3 (0.0-0.1); Basophils % (Auto) 0.7 % (0.0-1.8); Eosinophils # (Auto) 0.1 K/mm3 (0.0-0.4); Eosinophils % (Auto) 0.9 % (0.0-4.3); Hematocrit 41.7 % (35.5-45.6); Hemoglobin 14.1 gm/dl (11.8-15.2); Lymphocytes # (Auto) 0.9 K/mm3 (1.2-5.4); Lymphocytes % (Auto) 6.9 % (13.4-35.0); Mean Corpuscular HGB Conc 34 % (32-34); Mean Corpuscular Volume 88 fl (84-94); Monocytes # (Auto) 1.2 K/mm3 (0.0-0.8); Monocytes % (Auto) 9.6 % (0.0-7.3); Platelet Count 206 K/mm3 (140-440); Red Blood Count 4.72 M/mm3 (3.65-5.03); Red Cell Distribution Width 12.7 % (13.2-15.2)
[2019-02-04 06:00] LABS: INR 0.98 (0.87-1.13)
[2019-02-04 06:15] LABS: Creatine Kinase MB 3.3 ng/mL (0.0-4.0)
[2019-02-04 06:16] LABS: Calcium 8.7 mg/dL (8.4-10.2)
--- NOTE | 2019-02-04 08:25 | XRay Report ---
PORTABLE CHEST INDICATION: Post PCI. COMPARISON: 02/01/2019 FINDINGS: Portable, frontal chest radiograph demonstrates stable cardiomediastinal silhouette and diffuse prominence/ increased bilateral bronchovascular/interstitial markings, greatest toward the bases, in part presumed chronic. No pleural effusions or CHF. Stable EKG leads and osseous structures. CONCLUSION: No acute significant chest process with minimal pulmonary vascular redistribution without overt CHF in this patient with possible chronic interstitial changes. Please also correlate clinically and with more remote chest imaging, if available. Thank you for the opportunity to participate in this patient's care.
[2019-02-04] MEDS: HumaLOG SUB-Q SCH ×4 (09:07→22:05)
[2019-02-04] MEDS: MORPHINE IV PRN ×2 (09:11→22:05)
[2019-02-04] MEDS ORDERED: ZESTRIL PO SCH (10:00)
[2019-02-04] MEDS: PLAVIX PO SCH (11:31)
[2019-02-04] MEDS: CORDARONE PO SCH (11:31)
[2019-02-04] MEDS: BABY ASPIRIN PO SCH (11:32)
[2019-02-04] MEDS: SODIUM CHLORIDE FLUSH SYRINGE 10 ML IV SCH ×2 (11:32→22:04)
--- NOTE | 2019-02-04 12:31 | Progress Note ---
Assessment and Plan He may be discharged home on the current regimen. Coumadin should be reduced to 5mg daily. To call our office to have INR on Thursday. To f/u with me in 1 week. - Patient Problems (1) Acute [id number] myocardial infarction Current Visit: Yes Status: Acute (2) Acute HFrEF (heart failure with reduced ejection fraction) Current Visit: Yes Status: Acute (3) Paroxysmal atrial fibrillation with RVR Current Visit: Yes Status: Acute (4) CAD (coronary artery disease) Current Visit: Yes Status: Chronic Qualifiers: Coronary Disease-Associated Artery/Lesion type: atka artery (5) Ischemic cardiomyopathy Current Visit: Yes Status: Acute (6) Stented coronary artery Current Visit: Yes Status: Acute (7) Diabetes mellitus Current Visit: Yes Status: Chronic Qualifiers: Diabetes mellitus type: type 2 Subjective Date of service: 02/04/19 Principal diagnosis: Acute NSTEMI, PAF with RVR, Ischemic CMP, Acute HFrEF, CAD, s/p PCI Interval history: No complaint. He is in sinus rhythm. Objective Vital Signs Temp Pulse Pulse Resp BP BP Pulse Ox 02/04/19 12:03 75 20 92 02/04/19 11:32 75 126/71 02/04/19 11:14 98.5 F 02/04/19 11:11 75 20 126/71 92 02/04/19 09:09 69 136/73 02/04/19 01:00 83 02/03/19 21:18 96 02/03/19 21:06 98.2 F 85 20 127/76 96 02/03/19 17:30 98.0 F 69 20 140/76 98 02/03/19 17:01 86 140/76 02/03/19 17:00 98.3 F 83 20 142/78 98 02/03/19 16:30 98.2 F 87 20 141/75 99 02/03/19 16:02 86 97 02/03/19 16:00 97.8 F 86 22 138/84 98 02/03/19 15:30 88 21 137/73 96 02/03/19 15:15 88 18 149/79 93 02/03/19 15:00 86 23 140/67 93 02/03/19 14:45 84 33 H 135/69 93 02/03/19 14:30 86 24 143/83 93 02/03/19 14:15 85 21 139/84 95 02/03/19 14:00 83 20 129/78 95 02/03/19 13:47 98.2 F 82 18 133/72 100 - Physical Examination General: No Apparent Distress HEENT: Positive: EOMI, Normocephaly, Mucus Membranes Moist Neck: Positive: neck supple, trachea midline Cardiac: Positive: Reg Rate and Rhythm, S1/S2 Lungs: Positive: clear to auscultation Neuro: Positive: Grossly Intact Abdomen: Positive: Soft, Active Bowel Sounds. Negative: Tender Skin: Positive: Clear. Negative: Rash Incision: Cardiac Cath Site (no hematoma) Musculoskeletal: Normal Range of Motion Extremities: Present: normal. Absent: edema - Labs and Meds Cardiac Enzymes 02/04/19 Range/Units 05:33 CK-MB (CK-2) 3.3 (0.0-4.0) ng/mL Coagulation 02/04/19 Range/Units 05:33 PT 13.6 (12.2-14.9) Sec. INR 0.98 (0.87-1.13) CBC 02/04/19 Range/Units 05:33 WBC 13.0 H (4.5-11.0) K/mm3 RBC 4.72 (3.65-5.03) M/mm3 Hgb 14.1 (11.8-15.2) gm/dl Hct 41.7 (35.5-45.6) % Plt Count 206 (140-440) K/mm3 Lymph # 0.9 L (1.2-5.4) K/mm3 Hart # 1.2 H (0.0-0.8) K/mm3 Eos # 0.1 (0.0-0.4) K/mm3 Baso # 0.1 (0.0-0.1) K/mm3 Comprehensive Metabolic Panel 02/04/19 Range/Units 05:33 Sodium 133 L (137-145) mmol/L Potassium 4.8 D (3.6-5.0) mmol/L Chloride 96.9 L (98-107) mmol/L Carbon Dioxide 25 (22-30) mmol/L BUN 28 H (9-20) mg/dL Creatinine 1.3 (0.8-1.5) mg/dL Glucose 221 H (75-100) mg/dL Calcium 8.7 (8.4-10.2) mg/dL - Imaging and Cardiology EKG: image reviewed - Telemetry EKG Rhythm: Sinus Rhythm
--- NOTE | 2019-02-04 13:14 | Progress Note ---
Assessment and Plan 64 y/o male with known heart disease, admitted with Afib with RVR and worsening shortness of breath with chest pain, found to have an NSTEMI 1. Will see as needed over the weekend 2. Wean FiO2 as tolerated. Subjective Date of service: 02/04/19 Principal diagnosis: Acute NSTEMI, PAF with RVR, Ischemic CMP, Acute HFrEF, CAD, s/p PCI Interval history: No acute events. Had cath but did not require unit post intervention Objective Vital Signs - 12hr 02/04/19 02/04/19 02/04/19 09:09 11:11 11:14 Temperature 98.5 F Pulse Rate 69 75 Pulse Rate [ From Monitor] Respiratory 20 Rate Blood Pressure 126/71 Blood Pressure 136/73 [Left] O2 Sat by Pulse 92 Oximetry 02/04/19 02/04/19 11:32 12:03 Temperature Pulse Rate 75 Pulse Rate [ 75 From Monitor] Respiratory 20 Rate Blood Pressure 126/71 Blood Pressure [Left] O2 Sat by Pulse 92 Oximetry CBC and BMP: 02/04/19 05:33 02/04/19 05:33 ABG, PT/INR, D-dimer: PT/INR, D-dimer PT 13.6 Sec. (12.2-14.9) 02/04/19 05:33 INR 0.98 (0.87-1.13) 02/04/19 05:33 Abnormal lab findings: Abnormal Labs 02/01/19 02/01/19 02/01/19 23:36 23:36 23:36 WBC 12.0 H RDW 12.8 L Lymph % (Auto) Potter % (Auto) Lymph # Potter # Seg Neutrophils % 79.4 H Seg Neutrophils # 9.5 H APTT Activated Clotting Time Heparin Anti-Xa Level Sodium 134 L Chloride 97.9 L Carbon Dioxide 21 L BUN Glucose 406 H POC Glucose CK-MB (CK-2) Troponin T 0.263 H* NT-Pro-B Natriuret Pep 1505 H Albumin 3.4 L HDL Cholesterol 34 L 02/02/19 02/02/19 02/02/19 01:30 02:27 02:47 WBC RDW Lymph % (Auto) Potter % (Auto) Lymph # Potter # Seg Neutrophils % Seg Neutrophils # APTT Activated Clotting Time Heparin Anti-Xa Level Sodium Chloride Carbon Dioxide BUN Glucose POC Glucose 316 H CK-MB (CK-2) 5.5 H Troponin T 0.312 H* 0.300 H* NT-Pro-B Natriuret Pep Albumin HDL Cholesterol 02/02/19 02/02/19 02/02/19 03:37 04:31 04:31 WBC 13.0 H RDW 12.9 L Lymph % (Auto) Potter % (Auto) Lymph # Potter # 0.9 H Seg Neutrophils % 75.3 H Seg Neutrophils # 9.8 H APTT Activated Clotting Time Heparin Anti-Xa Level Sodium 136 L Chloride Carbon Dioxide BUN Glucose 315 H POC Glucose 319 H CK-MB (CK-2) Troponin T NT-Pro-B Natriuret Pep Albumin HDL Cholesterol 02/02/19 02/02/19 02/02/19 06:46 07:32 12:07 WBC RDW Lymph % (Auto) Potter % (Auto) Lymph # Potter # Seg Neutrophils % Seg Neutrophils # APTT Activated Clotting Time Heparin Anti-Xa Level Sodium Chloride Carbon Dioxide BUN Glucose POC Glucose 227 H 185 H CK-MB (CK-2) 5.2 H Troponin T 0.354 H* NT-Pro-B Natriuret Pep Albumin HDL Cholesterol 02/02/19 02/02/19 02/02/19 15:17 16:14 18:10 WBC RDW Lymph % (Auto) Potter % (Auto) Lymph # Potter # Seg Neutrophils % Seg Neutrophils # APTT 39.8 H Activated Clotting Time Heparin Anti-Xa Level Sodium Chloride Carbon Dioxide BUN Glucose POC Glucose 262 H 155 H CK-MB (CK-2) Troponin T NT-Pro-B Natriuret Pep Albumin HDL Cholesterol 02/02/19 02/03/19 02/03/19 21:12 04:31 04:31 WBC 13.2 H RDW 12.6 L Lymph % (Auto) Potter % (Auto) 9.7 H Lymph # Potter # 1.3 H Seg Neutrophils % 75.0 H Seg Neutrophils # 9.9 H APTT Activated Clotting Time Heparin Anti-Xa Level Sodium Chloride Carbon Dioxide BUN 22 H Glucose 150 H POC Glucose CK-MB (CK-2) 4.2 H Troponin T 0.429 H* D 0.383 H* NT-Pro-B Natriuret Pep Albumin HDL Cholesterol 02/03/19 02/03/19 02/03/19 04:31 06:40 13:04 WBC RDW Lymph % (Auto) Potter % (Auto) Lymph # Potter # Seg Neutrophils % Seg Neutrophils # APTT Activated Clotting Time 301 H Heparin Anti-Xa Level < 0.10 L < 0.10 L Sodium Chloride Carbon Dioxide BUN Glucose POC Glucose CK-MB (CK-2) Troponin T NT-Pro-B Natriuret Pep Albumin HDL Cholesterol 02/03/19 02/03/19 02/03/19 13:32 16:10 21:05 WBC RDW Lymph % (Auto) Potter % (Auto) Lymph # Potter # Seg Neutrophils % Seg Neutrophils # APTT Activated Clotting Time 296 H Heparin Anti-Xa Level Sodium Chloride Carbon Dioxide BUN Glucose POC Glucose 270 H 209 H CK-MB (CK-2) Troponin T NT-Pro-B Natriuret Pep Albumin HDL Cholesterol 02/04/19 02/04/19 02/04/19 05:33 05:33 08:23 WBC 13.0 H RDW 12.7 L Lymph % (Auto) 6.9 L Potter % (Auto) 9.6 H Lymph # 0.9 L Potter # 1.2 H Seg Neutrophils % 81.9 H Seg Neutrophils # 10.6 H APTT Activated Clotting Time Heparin Anti-Xa Level Sodium 133 L Chloride 96.9 L Carbon Dioxide BUN 28 H Glucose 221 H POC Glucose 188 H CK-MB (CK-2) Troponin T 0.605 H* D NT-Pro-B Natriuret Pep Albumin HDL Cholesterol 02/04/19 12:03 WBC RDW Lymph % (Auto) Potter % (Auto) Lymph # Potter # Seg Neutrophils % Seg Neutrophils # APTT Activated Clotting Time Heparin Anti-Xa Level Sodium Chloride Carbon Dioxide BUN Glucose POC Glucose 229 H CK-MB (CK-2) Troponin T NT-Pro-B Natriuret Pep Albumin HDL Cholesterol
[2019-02-04] MEDS ORDERED: COUMADIN PO SCH (15:04)
--- NOTE | 2019-02-04 15:16 | Discharge Summary ---
Providers - Providers Date of Admission: 02/02/19 01:13 Date of discharge: 02/06/19 Attending physician: SHANE MATTHEW 02/02/19 00:31 Consult to Physician [CONS] Stat Comment: Dr. Baird spoke with Dr. Stephenson @ 0028 Consulting Provider: MANAN STEPHENSON Physician Instructions: Reason For Exam: shortness of breath, elevated troponin. 02/02/19 01:18 Consult to Physician [CONS] Routine Comment: Dr. Osborne notified @ 0126 Consulting Provider: NISSA OSBORNE Physician Instructions: Reason For Exam: cc 02/03/19 Consult to Cardiac Rehabilitation [CONS] Routine Reason For Exam: post pci [facility] Condition: Stable Pertinent studies: CXR 2d echo Cardiac cath * ECHO reviewed- EF 25-30%, mild MR, trace TR. * Patient is s/p cardiac cath 02/03, with PCI to RCA and OM2, started on coumadin * No need for home O2 on discharge Hospital course: Brief History: 64-year-old man with a history of hypertension, diabetes, coronary artery disease comes emergency room with complaints of chest pain that has been intermittent over the last 3 weeks. In the emergency room and was found to be in A. fib, started on a Cardizem drip. Patient initially was admitted to the ICU was subsequently downgraded to telemetry with initiation of amiodarone, Lopressor and weaned off from the Cardizem drip. She was Continued on ACEI, BB, ASA, plavix and LASIX. ECHO showed - EF 25-30%, mild MR, trace TR. s/p cardiac cath 02/03, with PCI to RCA and OM2, Started on Coumadin. Reevaluated for home O2 on discharge and he maintained O2 sat >90% on 6 minutes walk study. Patient was then discharged home in stable condition. Discharge diagnosis: A. fib with RVR Unstable angina with NSTEMI Acute Systolic Heart failure Cardiomyopathy ?ischemic Coronary artery disease S/P Stent In the past - s/p CPI to Om2 and RCA during this admission Dyslipidemia Diabetes, uncontrolled Hospitalist Physical GENERAL: The patient appeared well nourished and normally developed, elderly WM HEAD: No signs of head trauma. EYES: Pupils are equal. Extraocular motions intact. EARS: Hearing grossly intact. MOUTH: Oropharynx is normal. CHEST: Chest with clear breath sounds bilaterally. No wheezes, rales, or rhonchi. CARDIAC: + S1 and S2, without murmurs, gallops, or rubs. Extremities: No Edema. Peripheral pulses normal and equal in all extremities. ABDOMEN: Soft, non tender and non distended. Bowel Sounds normal. MUSCULOSKELETAL: No swelling or pain of any major joints. NEUROLOGIC EXAM: Alert and oriented x 3 Follows commands. PSYCHIATRIC: Mood normal. SKIN: No rash or lesions. Disposition: - TO HOME OR SELFCARE Time spent for discharge: 34 minutes Core Measure Documentation - Palliative Care Palliative Care/ Comfort Measures: Not Applicable - Core Measures Any of the following diagnoses?: heart failure - Heart Failure Discharge Requirements MARY/ARB for LVSD if EF <40%: Yes Beta parth at discharge: Yes Exam - Constitutional Vitals: Temp Pulse Resp BP Pulse Ox 98.5 F 75 20 126/71 92 02/04/19 11:14 02/04/19 12:03 02/04/19 12:03 02/04/19 11:32 02/04/19 12:03 Plan Activity: advance as tolerated Weight Bearing Status: Non-Weight Bearing Diet: low fat, low salt, diabetic Follow up with: KAYE NESBITT MD [Staff Physician] - 7 Days (INR check in [place] office, 02/07/2019 @ 10:15AM Follow up in [place] office, 02/11/2019 @ 1:00PM) [facility] HERMINIA [Primary Care Provider] - 7 Days Forms: Warfarin Discharge Instruction Prescriptions: AtorvaSTATin [Lipitor] 80 mg PO QHS #30 tablet Furosemide [Lasix TAB] 40 mg PO QDAY #30 tablet Metoprolol [Lopressor TAB] 50 mg PO BID #60 tablet Insulin NPH/Regular [NovoLIN 70/30] 10 unit SUB-Q BIDDIAB 30 Days units Clopidogrel [Plavix] 75 mg PO QDAY #30 tablet Lisinopril [Zestril TAB] 5 mg PO QDAY #30 tablet
[2019-02-04] MEDS: COUMADIN PO SCH (17:47)
[2019-02-05] MEDS: LASIX IV SCH ×2 (05:07→19:33)
[2019-02-05 08:15] LABS: INR 1.16 (0.87-1.13)
[2019-02-05] MEDS: HumaLOG SUB-Q SCH ×4 (08:32→22:27)
[2019-02-05] MEDS: ZESTRIL PO SCH (11:36)
[2019-02-05] MEDS: BABY ASPIRIN PO SCH (11:36)
[2019-02-05] MEDS: PLAVIX PO SCH (11:36)
[2019-02-05] MEDS: LOPRESSOR PO SCH ×2 (11:36→22:22)
[2019-02-05] MEDS: SODIUM CHLORIDE FLUSH SYRINGE 10 ML IV SCH ×2 (11:37→22:27)
--- NOTE | 2019-02-05 16:31 | Progress Note ---
Assessment and Plan A. fib with RVR Unstable angina with NSTEMI Acute Systolic Heart failure Cardiomyopathy ?ischemic Coronary artery disease S/P Stent In the past - s/p CPI to Om2 and RCA during this admission Dyslipidemia Diabetes, uncontrolled Plan Continue supportive care Continue ACEI, BB, ASA, plavix and LASIX Started on Coumadin Continue give a dose of Lantus now, and cont sliding scale DVT prophylaxis Need home O2 on discharge, CM notified Brief History: 64-year-old man with a history of hypertension, diabetes, coronary artery disease comes emergency room with complaints of chest pain that has been intermittent over the last 3 weeks. In the emergency room and was found to be in A. fib, started on a Cardizem drip. Patient initially was admitted to the ICU was subsequently downgraded to telemetry with initiation of amiodarone, Lopressor and weaned off from the Cardizem drip. Now only on BB, off amioderone. * ECHO reviewed- EF 25-30%, mild MR, trace TR. * Patient is s/p cardiac cath 02/03, with PCI to RCA and OM2, started on coumadin * need home O2 on discharge Hospitalist Physical VITAL SIGNS: Reviewed. GENERAL: The patient appeared well nourished and normally developed, Vital signs as documented. HEAD: No signs of head trauma. EYES: Pupils are equal. Extraocular motions intact. EARS: Hearing grossly intact. MOUTH: Oropharynx is normal. NECK: No adenopathy, no JVD. CHEST: Chest with clear breath sounds bilaterally. No wheezes, rales, or rhonchi. CARDIAC: Regular rate and rhythm. S1 and S2, without murmurs, gallops, or rubs. VASCULAR: No Edema. Peripheral pulses normal and equal in all extremities. ABDOMEN: Soft, non tender and non distended. No rebound or guarding, and no masses palpated. Bowel Sounds normal. MUSCULOSKELETAL: Good range of motion of all major joints. Extremities without clubbing, cyanosis or edema. NEUROLOGIC EXAM: Alert and oriented x 3 No focal sensory or strength deficits. Speech normal. Follows commands. PSYCHIATRIC: Mood normal. SKIN: No rash or lesions. Subjective Date of service: 02/04/19 Principal diagnosis: Acute NSTEMI, PAF with RVR, Ischemic CMP, Acute HFrEF, CAD, s/p PCI Interval history: patient seen and examined Denies chest pain, but has SOB with exertion, still on ~3L O2 O2 sats drops to 85% on ambulation Objective - Constitutional Vitals: Vital Signs - 12hr 02/05/19 02/05/19 12:00 13:00 Pulse Rate 73 Respiratory 24 Rate O2 Sat by Pulse 95 Oximetry - Labs CBC & Chem 7: 02/04/19 05:33 02/04/19 05:33 Labs: Abnormal lab results 02/04/19 02/04/19 02/05/19 Range/Units 17:34 21:02 05:56 PT 15.5 H (12.2-14.9) Sec. INR 1.16 H (0.87-1.13) POC Glucose 241 H 177 H (70-105) 02/05/19 Range/Units 08:02 PT (12.2-14.9) Sec. INR (0.87-1.13) POC Glucose 143 H (70-105)
--- NOTE | 2019-02-05 16:32 | Progress Note ---
Assessment and Plan A. fib with RVR Unstable angina with NSTEMI Acute Systolic Heart failure Cardiomyopathy ?ischemic Coronary artery disease S/P Stent In the past - s/p CPI to Om2 and RCA during this admission Dyslipidemia Diabetes, uncontrolled Plan Continue supportive care Continue ACEI, BB, ASA, plavix and LASIX Started on Coumadin Continue give a dose of Lantus now, and cont sliding scale DVT prophylaxis Need home O2 on discharge, CM notified Brief History: 64-year-old man with a history of hypertension, diabetes, coronary artery disease comes emergency room with complaints of chest pain that has been intermittent over the last 3 weeks. In the emergency room and was found to be in A. fib, started on a Cardizem drip. Patient initially was admitted to the ICU was subsequently downgraded to telemetry with initiation of amiodarone, Lopressor and weaned off from the Cardizem drip. Now only on BB, off amioderone. * ECHO reviewed- EF 25-30%, mild MR, trace TR. * Patient is s/p cardiac cath 02/03, with PCI to RCA and OM2, started on coumadin * need home O2 on discharge Hospitalist Physical VITAL SIGNS: Reviewed. GENERAL: The patient appeared well nourished and normally developed, Vital signs as documented. HEAD: No signs of head trauma. EYES: Pupils are equal. Extraocular motions intact. EARS: Hearing grossly intact. MOUTH: Oropharynx is normal. NECK: No adenopathy, no JVD. CHEST: Chest with clear breath sounds bilaterally. No wheezes, rales, or rhonchi. CARDIAC: Regular rate and rhythm. S1 and S2, without murmurs, gallops, or rubs. VASCULAR: No Edema. Peripheral pulses normal and equal in all extremities. ABDOMEN: Soft, non tender and non distended. No rebound or guarding, and no masses palpated. Bowel Sounds normal. MUSCULOSKELETAL: Good range of motion of all major joints. Extremities without clubbing, cyanosis or edema. NEUROLOGIC EXAM: Alert and oriented x 3 No focal sensory or strength deficits. Speech normal. Follows commands. PSYCHIATRIC: Mood normal. SKIN: No rash or lesions. Subjective Date of service: 02/05/19 Principal diagnosis: Acute NSTEMI, PAF with RVR, Ischemic CMP, Acute HFrEF, CAD, s/p PCI Interval history: patient seen and examined Denies chest pain, but has SOB with exertion, still on ~3L O2 O2 sats drops to 85% on ambulation pending d/c on home O2 arrangement Objective - Constitutional Vitals: Vital Signs - 12hr 02/05/19 02/05/19 12:00 13:00 Pulse Rate 73 Respiratory 24 Rate O2 Sat by Pulse 95 Oximetry - Labs CBC & Chem 7: 02/06/19 07:28 02/04/19 05:33 Labs: Abnormal lab results 02/04/19 02/04/19 02/05/19 Range/Units 17:34 21:02 05:56 PT 15.5 H (12.2-14.9) Sec. INR 1.16 H (0.87-1.13) POC Glucose 241 H 177 H (70-105) 02/05/19 Range/Units 08:02 PT (12.2-14.9) Sec. INR (0.87-1.13) POC Glucose 143 H (70-105)
[2019-02-05] MEDS: COUMADIN PO SCH (19:32)
[2019-02-06] MEDS: LASIX IV SCH (06:24)
[2019-02-06 08:00] LABS: Hematocrit 41.4 % (35.5-45.6); Hemoglobin 14.1 gm/dl (11.8-15.2)
[2019-02-06 08:06] LABS: INR 1.79 (0.87-1.13)
[2019-02-06] MEDS: MORPHINE IV PRN (08:24)
[2019-02-06] MEDS: HumaLOG SUB-Q SCH ×2 (09:20→12:48)
[2019-02-06] MEDS: LOPRESSOR PO SCH (09:47)
[2019-02-06] MEDS: PLAVIX PO SCH (09:48)
[2019-02-06] MEDS: ZESTRIL PO SCH (09:48)
[2019-02-06] MEDS: BABY ASPIRIN PO SCH (09:48)
[2019-02-06] MEDS: SODIUM CHLORIDE FLUSH SYRINGE 10 ML IV SCH (09:50)
--- NOTE | 2019-02-06 13:19 | Progress Note ---
Assessment and Plan A. fib with RVR Unstable angina with NSTEMI Acute Systolic Heart failure Cardiomyopathy ?ischemic Coronary artery disease S/P Stent In the past - s/p CPI to Om2 and RCA during this admission Dyslipidemia Diabetes, uncontrolled Plan Continue supportive care Continue ACEI, BB, ASA, plavix and LASIX Started on Coumadin Continue give a dose of Lantus now, and cont sliding scale DVT prophylaxis Need home O2 on discharge, CM notified Brief History: 64-year-old man with a history of hypertension, diabetes, coronary artery disease comes emergency room with complaints of chest pain that has been intermittent over the last 3 weeks. In the emergency room and was found to be in A. fib, started on a Cardizem drip. Patient initially was admitted to the ICU was subsequently downgraded to telemetry with initiation of amiodarone, Lopressor and weaned off from the Cardizem drip. Now only on BB, off amioderone. * ECHO reviewed- EF 25-30%, mild MR, trace TR. * Patient is s/p cardiac cath 02/03, with PCI to RCA and OM2, started on coumadin * need home O2 on discharge Hospitalist Physical VITAL SIGNS: Reviewed. GENERAL: The patient appeared well nourished and normally developed, Vital signs as documented. HEAD: No signs of head trauma. EYES: Pupils are equal. Extraocular motions intact. EARS: Hearing grossly intact. MOUTH: Oropharynx is normal. NECK: No adenopathy, no JVD. CHEST: Chest with clear breath sounds bilaterally. No wheezes, rales, or rhonchi. CARDIAC: Regular rate and rhythm. S1 and S2, without murmurs, gallops, or rubs. VASCULAR: No Edema. Peripheral pulses normal and equal in all extremities. ABDOMEN: Soft, non tender and non distended. No rebound or guarding, and no masses palpated. Bowel Sounds normal. MUSCULOSKELETAL: Good range of motion of all major joints. Extremities without clubbing, cyanosis or edema. NEUROLOGIC EXAM: Alert and oriented x 3 No focal sensory or strength deficits. Speech normal. Follows commands. PSYCHIATRIC: Mood normal. SKIN: No rash or lesions. Subjective Date of service: 02/06/19 Principal diagnosis: Acute NSTEMI, PAF with RVR, Ischemic CMP, Acute HFrEF, CAD, s/p PCI Objective - Constitutional Vitals: Vital Signs - 12hr 02/06/19 02/06/19 02/06/19 08:00 09:47 09:48 Temperature Pulse Rate 71 71 Pulse Rate [ 71 Apical] Pulse Rate [ 71 Left Dorsalis Pedis] Pulse Rate [ 71 Left Radial] Pulse Rate [ 71 Right Dorsalis Pedis] Pulse Rate [ 71 Right Radial] Respiratory 19 Rate Blood Pressure 125/52 125/52 Blood Pressure [Left] O2 Sat by Pulse 98 Oximetry 02/06/19 02/06/19 10:00 10:41 Temperature 97.5 F L Pulse Rate 63 Pulse Rate [ Apical] Pulse Rate [ Left Dorsalis Pedis] Pulse Rate [ Left Radial] Pulse Rate [ Right Dorsalis Pedis] Pulse Rate [ Right Radial] Respiratory 20 Rate Blood Pressure Blood Pressure 125/61 [Left] O2 Sat by Pulse 97 91 Oximetry - Labs CBC & Chem 7: 02/06/19 07:28 02/04/19 05:33 Labs: Abnormal lab results 02/05/19 02/05/19 02/05/19 Range/Units 12:46 17:04 21:02 PT (12.2-14.9) Sec. INR (0.87-1.13) POC Glucose 221 H 151 H 184 H (70-105) 02/06/19 02/06/19 02/06/19 Range/Units 07:28 07:51 12:32 PT 22.0 H (12.2-14.9) Sec. INR 1.79 H (0.87-1.13) POC Glucose 148 H 213 H (70-105)
[2019-02-06 14:29] VITALS: BP 120/58
[2019-02-06] MEDS ORDERED: COUMADIN PO SCH (17:00)
== END 2019-02-06 16:37 | disposition home or self-care (01) | DRG 246 ==
LOC: ED 22:55 → CC1 02-02 01:13 → 4A 02-02 20:42
PROVIDERS: ADMIT Internal Medicine; ATTEND Internal Medicine
PROC: 027135Z Dilation of Coronary Artery, Two Arteries with Two Drug-eluting Intraluminal Devices, Percutaneous Approach (ICD-10-PCS; principal; 2019-02-03)
PROC: B240ZZ3 Ultrasonography of Single Coronary Artery, Intravascular (ICD-10-PCS; 2019-02-03)
PROC: 4A023N7 Measurement of Cardiac Sampling and Pressure, Left Heart, Percutaneous Approach (ICD-10-PCS; 2019-02-03)
PROC: B2111ZZ Fluoroscopy of Multiple Coronary Arteries using Low Osmolar Contrast (ICD-10-PCS; 2019-02-03)
PROC: B2151ZZ Fluoroscopy of Left Heart using Low Osmolar Contrast (ICD-10-PCS; 2019-02-03)
DX: I21.4 Non-ST elevation (NSTEMI) myocardial infarction (principal); I50.23 Acute on chronic systolic (congestive) heart failure; I10 Essential (primary) hypertension; I25.110 Atherosclerotic heart disease of native coronary artery with unstable angina pectoris; F17.200 Nicotine dependence, unspecified, uncomplicated; I25.10 Atherosclerotic heart disease of native coronary artery without angina pectoris; I08.1 Rheumatic disorders of both mitral and tricuspid valves; E11.40 Type 2 diabetes mellitus with diabetic neuropathy, unspecified; I25.82 Chronic total occlusion of coronary artery; E78.5 Hyperlipidemia, unspecified; I48.91 Unspecified atrial fibrillation; Z82.49 Family history of ischemic heart disease and other diseases of the circulatory system; Z79.899 Other long term (current) drug therapy; Z95.5 Presence of coronary angioplasty implant and graft; Z71.6 Tobacco abuse counseling; Z91.19 Patient's noncompliance with other medical treatment and regimen; Z79.84 Long term (current) use of oral hypoglycemic drugs
CPT/HCPCS: 36415; 71045; 80048; 80061; 80076; 82550; 82553; 82962; 83880; 84443; 84484; 85014; 85018; 85025; 85049; 85347; 85520; 85610; 85730; 92928; 92929; 92978; 93005; 93010; 93306; 93458; 94760; G0378; A9270-GY; C1725; C1753; C1769; C1874; C1887; C1894; C9600; C9601; J1644; J1650; J1815; J1940; J2250; J2270; J3010; J7040; Q9967

== ENCOUNTER 2019-02-19 14:49 | Inpatient (IN) | payer SELFPAY ==
[2019-02-19] MEDS ORDERED: ASPIRIN PO ONE (14:55)
[2019-02-19] MEDS ORDERED: NACL 0.9% 1000 ML 1,000 ML ONE ×2 (15:01→16:00)
[2019-02-19 16:03] LABS: Mean Corpuscular HGB Conc 34 % (32-34); Mean Corpuscular Volume 91 fl (84-94); Platelet Count 225 K/mm3 (140-440); Red Blood Count 1.89 M/mm3 (3.65-5.03); Red Cell Distribution Width 14.3 % (13.2-15.2)
[2019-02-19] MEDS ORDERED: NACL 0.9% 1000 ML 1,000 ML IV ONE (16:04)
[2019-02-19 16:13] LABS: Hematocrit 17.2 % (35.5-45.6); Hemoglobin 5.8 gm/dl (11.8-15.2)
[2019-02-19 16:15] LABS: Partial Thromboplastin Time 43.4 Sec. (24.2-36.6)
--- NOTE | 2019-02-19 16:16 | XRay Report ---
PROCEDURE: XR CHEST 1V AP TECHNIQUE: Frontal portable view of the chest HISTORY: Chest Pain COMPARISONS: Chest x-ray dated February 04, 2019 FINDINGS: There is improved aeration of both lungs with interval decrease in the degree of prominence of the in terstitial markings and patchy airspace process in the right lung base. There has been interval development of a small right pleural fluid collection. The cardiomediastinal silhouette is unremarkable in appearance. The bony structures are unremarkable. IMPRESSION: 1. Interval improvement in aeration of both lungs with decrease in degree of interstitial and airspac e process. 2. Interval development of small right pleural fluid collection. This document is electronically signed by Esther Correa MD., February 19 2019 04:14:15 PM ET
[2019-02-19 16:21] LABS: INR 6.27 (0.87-1.13)
[2019-02-19 16:27] LABS: Creatine Kinase MB 1.6 ng/mL (0.0-4.0)
[2019-02-19 16:31] LABS: Calcium 7.6 mg/dL (8.4-10.2)
[2019-02-19 16:33] LABS: Alanine Aminotransferase 10 units/L (7-56); Albumin 2.9 g/dL (3.9-5)
[2019-02-19 16:34] LABS: Bilirubin,Direct < 0.2 mg/dL (0-0.2)
[2019-02-19] MEDS ORDERED: HumuLIN R IV ONE (16:47)
--- NOTE | 2019-02-19 16:47 | Emergency Department Report ---
HPI - General Chief Complaint: Chest Pain Time Seen by Provider: 02/19/19 16:10 - HPI HPI: 64-year-old male presents to the emergency department via EMS from home with complaint of generalized weakness, feeling off balanced, excessive fatigue and continued chest discomfort for the past few days. Patient denies any lateralizing features. He has a past medical history of insulin-dependent diabetes, coronary artery disease with cardiac stents, paroxysmal atrial fibrillation, CHF, ischemic cardiomyopathy. The patient was here about 2 weeks ago and had a cardiac catheterization at that time with 2 new stents placed. He has not taken anything for his symptoms prior to presentation today. ED Past Medical Hx - Past Medical History Previous Medical History?: Yes Hx Heart Attack/AMI: Yes (stent placed, 2017) Hx Diabetes: Yes - Surgical History Additional Surgical History: stent placed - Social History Smoking Status: Current Every Day Smoker Substance Use Type: None - Medications Home Medications: Home Medications Medication Instructions Recorded Confirmed Last Taken Type Aspirin [Aspirin BABY CHEW TAB] 81 mg PO QDAY #30 tab.chew 02/04/19 Unknown Rx AtorvaSTATin [Lipitor] 80 mg PO QHS #30 tablet 02/04/19 Unknown Rx Clopidogrel [Plavix] 75 mg PO QDAY #30 tablet 02/04/19 Unknown Rx Furosemide [Lasix TAB] 40 mg PO QDAY #30 tablet 02/04/19 Unknown Rx Insulin NPH/Regular [NovoLIN 70/30] 10 unit SUB-Q BIDDIAB 30 Days 02/04/19 Unknown Rx units Lisinopril [Zestril TAB] 5 mg PO QDAY #30 tablet 02/04/19 Unknown Rx Metoprolol [Lopressor TAB] 50 mg PO BID #60 tablet 02/04/19 Unknown Rx Warfarin Sodium [Coumadin] 5 mg PO DAILY #30 tablet 02/04/19 Unknown Rx ED Review of Systems ROS: Stated complaint: CHEST PAIN Other details as noted in HPI Comment: All other systems reviewed and negative Constitutional: weakness. denies: chills, fever Eyes: denies: eye pain, vision change ENT: denies: ear pain, throat pain Respiratory: denies: cough, wheezing Cardiovascular: chest pain. denies: palpitations Gastrointestinal: vomiting (one episode of vomiting upon arrival), constipation Genitourinary: denies: dysuria, discharge Musculoskeletal: denies: back pain, arthralgia Skin: denies: rash, lesions Neurological: weakness. denies: headache Physical Exam - Physical Exam Vital Signs: Vital Signs 02/19/19 02/19/19 02/19/19 14:54 15:00 15:16 Temperature 97.6 F Pulse Rate 87 87 85 Respiratory 31 H 27 H 29 H Rate Blood Pressure 88/43 97/39 Blood Pressure [Right] O2 Sat by Pulse 100 Oximetry 02/19/19 02/19/19 02/19/19 15:25 15:30 15:46 Temperature Pulse Rate 121 H 130 H Respiratory 25 H 19 Rate Blood Pressure 97/39 87/35 Blood Pressure 92/38 [Right] O2 Sat by Pulse 100 96 Oximetry Physical Exam: GENERAL: The patient is well-developed well-nourished. HEENT: Normocephalic. Atraumatic. Patient has moist mucous membranes. Oropharynx is clear. EYES: Extraocular motions are intact. Pupils are equal and reactive to light bilaterally. Conjunctiva bilaterally. NECK: Supple. Trachea is midline. CHEST/LUNGS: Clear to auscultation. There is no respiratory distress noted. HEART/CARDIOVASCULAR: Regular. There is no tachycardia. There is no obvious murmur. ABDOMEN: Abdomen is soft, nontender. Patient has normal bowel sounds. There is no abdominal distention. SKIN: Skin is warm and dry. Pale skin. NEURO: The patient is awake, alert, and oriented. The patient is cooperative. The patient has no focal neurologic deficits. The patient has normal speech. Cranial nerves II through XII grossly intact. No pronator drift. No dysmetria. MUSCULOSKELETAL: There is no tenderness or deformity. There is no limitation range of motion. There is no evidence of acute injury. RECTAL: There is no gross blood. Stool is dark, melanotic and positive on guaiac testing. ED Course Vital Signs 02/19/19 02/19/19 02/19/19 14:54 15:00 15:16 Temperature 97.6 F Pulse Rate 87 87 85 Respiratory 31 H 27 H 29 H Rate Blood Pressure 88/43 97/39 Blood Pressure [Right] O2 Sat by Pulse 100 Oximetry 02/19/19 02/19/19 02/19/19 15:25 15:30 15:46 Temperature Pulse Rate 121 H 130 H Respiratory 25 H 19 Rate Blood Pressure 97/39 87/35 Blood Pressure 92/38 [Right] O2 Sat by Pulse 100 96 Oximetry - Consultations Consultation #1: 02/19/19 21:04 I spoke with the legal secretary station jailer, Dr. Ceja, who is aware of the patient's melena and symptomatic anemia. They have been contacted and consulted. ED Medical Decision Making - Lab Data Result diagrams: 02/19/19 16:44 02/19/19 15:32 - EKG Data -: EKG Interpreted by Me EKG shows normal: sinus rhythm, axis, intervals, QRS complexes, ST-T waves Rate: normal - EKG Data When compared to previous EKG there are: no significant change Interpretation: unchanged when compared t (02/01/19) - Radiology Data Radiology results: report reviewed, image reviewed interpreted by me: Chest x-ray does not show any pneumothorax, pleural effusion, pneumonia or obvious focal consolidation. Abdominal x-ray shows increased stool volume but otherwise no acute process. PROCEDURE: CT HEAD/BRAIN WO CON TECHNIQUE: Computerized tomography of the head was performed without contrast material. Imaging was obtained in axial increments. CT DOSE LENGTH PRODUCT: 1380.7 mGycm HISTORY: weakness COMPARISONS: None . FINDINGS: The ventricular system is normal in size and configuration. There is no evidence for parenchymal volume loss. There is no evidence for mass lesion, mass effect, midline shift, acute intracranial hemorrhage, or acute ischemia/ infarction. No evidence for acute skull fracture is seen. No abnormality in the overlying scalp soft tissues is seen. Visualized paranasal sinuses are clear. IMPRESSION: No acute intracranial process noted. This document is electronically signed by Hannah Fletcher MD., February 19 2019 07:34:06 PM ET Transcribed By: [facility] Dictated By: HANNAH FLETCHER MD Electronically Authenticated By: HANNAH FLETCHER MD Signed Date/Time: 02/19/19 193 - Medical Decision Making This patient presents to the emergency department with complaint of some generalized weakness as well as some continued chest pain. He has a hemoglobin of 5.8 which has dropped about 8 g in 2 weeks. He denies any gross bleeding or hemorrhage and that he does have some melanotic stool on examination that is positive on guaiac testing. Started on Protonix bolus and drip. Patient had a slightly elevated first troponin but it has been trending down. He will receive 2 units of packed red blood cells for transfusion to start. I have contacted gastroenterology and they are aware of the consult. The patient is a 0 on the N IH stroke scale. Her CT scan of the head without contrast does not show any bleed, shift, mass, ischemia, or any other acute process. The patient has been accepted for admission by the hospitalist, Dr. Lauren. - Differential Diagnosis GI bleed, [place], CVA, TIA, dysrhythmia Critical Care Time: Yes Critical care time in (mins) excluding proc time.: 35 Critical care attestation.: If time is entered above; I have spent that time in minutes in the direct care of this critically ill patient, excluding procedure time. Critical care time was spent on this patient undergoing his initial evaluation, multiple evaluations, ordering and interpretation of labs and imaging, ordering and transfusion of packed red blood cells, discussion with the gastroenterology specialist and the hospitalist. Critical Care Time: 35 minutes ED Disposition Clinical Impression: Symptomatic anemia, Anemia requiring transfusions, Melena, Generalized wea kness, Supratherapeutic INR Chest pain Qualifiers: Chest pain type: unspecified Qualified Code(s): R07.9 - Chest pain, unspecified Disposition: -09 OP ADMIT IP TO THIS HOSP Is pt being admited?: Yes Does the pt Need Aspirin: No Condition: Serious Time of Disposition: 18:26 - Assessment Assessment Interval: Baseline - Level of Consciousness 1a. Level of Consciousness: alert/keenly responsive - LOC Questions 1b. LOC Questions: answers both correctly - LOC Command 1c. LOC Commands: performs tasks correctly - Best Gaze 2. Best Gaze: normal - Visual 3. Visual: no visual loss - Facial Palsy 4. Facial Palsy: normal symmetrical movement - Motor Arm 5a. Motor Arm Left: no drift 5b. Motor Arm Right: no drift - Motor Leg 6a. Motor Leg Left: no drift 6b. Motor Leg Right: no drift - Limb Ataxia 7. Limb Ataxia: absent - Sensory 8. Sensory: normal - Best Language 9. Best Language: no aphasia - Dysarthria 10. Dysarthria: normal - Extinction and Inattention 11. Extinction/Inattention: no abnormality - Scoring Total Score: 0 Stroke Severity: No Stroke Symptoms
[2019-02-19 16:59] LABS: Chol/HDL Ratio 3.38 %
[2019-02-19 17:05] LABS: Band Neutrophils # (Manual) 0.6 K/mm3; Eosinophils % (Manual) 0 % (0.0-4.3); Total Cells Counted 100
[2019-02-19 17:06] LABS: Anisocytosis 1+; Hypochromasia 1+
[2019-02-19 17:07] LABS: Poikilocytosis Few
[2019-02-19 17:23] LABS: Hematocrit 16.6 % (35.5-45.6); Hemoglobin 5.9 gm/dl (11.8-15.2)
[2019-02-19] MEDS ORDERED: NACL 0.9% 500 ML 500 ML IV ONE (17:24)
[2019-02-19] MEDS ORDERED: PROTONIX IV ONE (18:17)
[2019-02-19] MEDS ORDERED: VITAMIN K (ADULT ONLY) 5 MG in NACL 0.9% 50 ML IV ONE (18:32)
--- NOTE | 2019-02-19 19:04 | XRay Report ---
XR ABDOMEN 2V CLINICAL INDICATION: Male, 64 years of age. Abd pain COMPARISON: None available. FINDINGS: AP views of the abdomen obtained. Moderate stool in the colon. Gas is scattered within nond ilated large and small bowel loops. No gross pathological calcifications. IMPRESSION: No grossly acute findings. This document is electronically signed by Bob Mcconnell DO., February 19 2019 07:02:12 PM ET
--- NOTE | 2019-02-19 19:35 | Cat Scan Report ---
PROCEDURE: CT HEAD/BRAIN WO CON TECHNIQUE: Computerized tomography of the head was performed without contrast material. Imaging was obtained in axial increments. CT DOSE LENGTH PRODUCT: 1380.7 mGycm HISTORY: weakness COMPARISONS: None . FINDINGS: The ventricular system is normal in size and configuration. There is no evidence for parenchymal volu me loss. There is no evidence for mass lesion, mass effect, midline shift, acute intracranial hemorrhage, or a cute ischemia/ infarction. No evidence for acute skull fracture is seen. No abnormality in the overlying scalp soft tissues is s een. Visualized paranasal sinuses are clear. IMPRESSION: No acute intracranial process noted. This document is electronically signed by Hannah Ambrose MD., February 19 2019 07:34:06 PM ET
[2019-02-19] MEDS: PROTONIX 80 MG in NACL 0.9% 100 ML IV SCH (20:36)
--- NOTE | 2019-02-19 21:57 | History and Physical Report ---
History of Present Illness Date of examination: 02/19/19 Date of admission: 02/19/19 18:27 Chief complaint: Severe weakness for 2 days History of present illness: 64-year-old male presents to the emergency department via EMS from home with complaint of generalized weakness, feeling off balanced, excessive fatigue and continued chest discomfort for the past few days. He has a past medical history of insulin-dependent diabetes, coronary artery disease with cardiac stents, paroxysmal atrial fibrillation, CHF, ischemic cardiomyopathy. The patient was here about 2 weeks ago and had a cardiac catheterization at that time with 2 new stents placed. He has not taken anything for his symptoms prior to presentation today. His H/H at discharge was 14.1/41.4 2 weeks age and today it is 5.8/17.2 Noticed dark stools for 2 days.Feels lightheaded on standing. Last admission Discharge summary: 64-year-old man with a history of hypertension, diabetes, coronary artery disease comes emergency room with complaints of chest pain that has been intermittent over the last 3 weeks. In the emergency room and was found to be in A. fib, started on a Cardizem drip. Patient initially was admitted to the ICU was subsequently downgraded to telemetry with initiation of amiodarone, Lopressor and weaned off from the Cardizem drip. Now only on BB, off amioderone. * ECHO reviewed- EF 25-30%, mild MR, trace TR. * Patient is s/p cardiac cath 02/03, with PCI to RCA and OM2, started on coumadin * No need for home O2 on discharge Discharge diagnosis: A. fib with RVR Unstable angina with NSTEMI Acute Systolic Heart failure Cardiomyopathy ?ischemic Coronary artery disease S/P Stent In the past - s/p CPI to Om2 and RCA during this admission Dyslipidemia Diabetes, uncontrolled Plan Continue supportive care Continue ACEI, BB, ASA, plavix and LASIX Started on Coumadin Continue give a dose of Lantus now, and cont sliding scale DVT prophylaxis Reevaluated for home O2 on discharge and he maintained O2 sat >90% on 6 minutes walk study Past Medical History Previous Medical History?: Yes Hx Heart Attack/AMI: Yes (stent placed, 2017) Hx Diabetes: Yes Surgical History Additional Surgical History: stent placed Social History Smoking Status: Current Every Day Smoker Substance Use Type: None Medications Home Medications: Home Medications Medication Instructions Recorded Confirmed Last Taken Type Aspirin [Aspirin BABY CHEW TAB] 81 mg PO QDAY #30 tab.chew 02/04/19 Unknown Rx AtorvaSTATin [Lipitor] 80 mg PO QHS #30 tablet 02/04/19 Unknown Rx Clopidogrel [Plavix] 75 mg PO QDAY #30 tablet 02/04/19 Unknown Rx Furosemide [Lasix TAB] 40 mg PO QDAY #30 tablet 02/04/19 Unknown Rx Insulin NPH/Regular [NovoLIN 70/30] 10 unit SUB-Q BIDDIAB 30 Days 02/04/19 Unknown Rx units Lisinopril [Zestril TAB] 5 mg PO QDAY #30 tablet 02/04/19 Unknown Rx Metoprolol [Lopressor TAB] 50 mg PO BID #60 tablet 02/04/19 Unknown Rx Warfarin Sodium [Coumadin] 5 mg PO DAILY #30 tablet 02/04/19 Unknown Rx Review of Systems ROS: Stated complaint: CHEST PAIN Other details as noted in HPI Comment: All other systems reviewed and negative Constitutional: weakness. denies: chills, fever Eyes: denies: eye pain, vision change ENT: denies: ear pain, throat pain Respiratory: denies: cough, wheezing Cardiovascular: chest pain. denies: palpitations Gastrointestinal: vomiting (one episode of vomiting upon arrival), constipation Genitourinary: denies: dysuria, discharge Musculoskeletal: denies: back pain, arthralgia Skin: denies: rash, lesions Neurological: weakness. denies: headache Medications and Allergies Allergies Allergy/AdvReac Type Severity Reaction Status Date / Time No Known Allergies Allergy Verified 02/02/19 00:42 Home Medications Medication Instructions Recorded Confirmed Last Taken Type Aspirin [Aspirin BABY CHEW TAB] 81 mg PO QDAY #30 tab.chew 02/04/19 02/19/19 1 Day Ago Rx ~02/18/19 AtorvaSTATin [Lipitor] 80 mg PO QHS #30 tablet 02/04/19 02/19/19 1 Day Ago Rx ~02/18/19 Clopidogrel [Plavix] 75 mg PO QDAY #30 tablet 02/04/19 02/19/19 1 Day Ago Rx ~02/18/19 Furosemide [Lasix TAB] 40 mg PO QDAY #30 tablet 02/04/19 02/19/19 1 Day Ago Rx ~02/18/19 Insulin NPH/Regular [NovoLIN 70/30] 10 unit SUB-Q BIDDIAB 30 Days 02/04/19 02/19/19 1 Day Ago Rx units ~02/18/19 Lisinopril [Zestril TAB] 5 mg PO QDAY #30 tablet 02/04/19 02/19/19 1 Day Ago Rx ~02/18/19 Metoprolol [Lopressor TAB] 50 mg PO BID #60 tablet 02/04/19 02/19/19 1 Day Ago Rx ~02/18/19 Warfarin Sodium [Coumadin] 5 mg PO DAILY #30 tablet 02/04/19 02/19/19 1 Day Ago Rx ~02/18/19 Active Meds: Active Medications Pantoprazole Sodium 80 mg/ (Sodium Chloride) 100 mls @ 10 mls/hr IV DIRECT MELINA Last Admin: 02/19/19 20:36 Dose: 8 mg/hr, 10 mls/hr Documented by: Exam - Constitutional Vitals: Temp Pulse Resp BP Pulse Ox 98.5 F 93 H 20 129/76 99 02/19/19 21:48 02/19/19 21:48 02/19/19 21:48 02/19/19 21:48 02/19/19 21:48 General appearance: Present: no acute distress, well-nourished - EENT Eyes: Present: PERRL ENT: hearing intact, clear oral mucosa - Neck Neck: Present: supple, normal ROM - Respiratory Respiratory effort: normal Respiratory: bilateral: CTA - Cardiovascular Heart rate: 88 Rhythm: regular Heart Sounds: Present: S1 & S2. Absent: rub, click - Extremities Extremities: no ischemia, pulses intact, pulses symmetrical, No edema Peripheral Pulses: within normal limits - Abdominal General gastrointestinal: Present: soft, non-tender, non-distended, normal bowel sounds Male genitourinary: Present: normal - Rectal Rectal Exam: stool dark (OB grossly positive) - Integumentary Integumentary: Present: clear, warm, dry - Musculoskeletal Musculoskeletal: gait normal, strength equal bilaterally - Psychiatric Psychiatric: appropriate mood/affect, intact judgment & insight - Neurologic Neurologic: CNII-XII intact, moves all extremities Results - Labs CBC & Chem 7: 02/19/19 16:44 02/19/19 15:32 Labs: Laboratory Last Values WBC 14.4 K/mm3 (4.5-11.0) H 02/19/19 15:32 RBC 1.89 M/mm3 (3.65-5.03) L 02/19/19 15:32 Hgb 5.9 gm/dl (11.8-15.2) L* 02/19/19 16:44 Hct 16.6 % (35.5-45.6) L* 02/19/19 16:44 MCV 91 fl (84-94) 02/19/19 15:32 MCH 31 pg (28-32) 02/19/19 15:32 MCHC 34 % (32-34) 02/19/19 15:32 RDW 14.3 % (13.2-15.2) 02/19/19 15:32 Plt Count 225 K/mm3 (140-440) 02/19/19 15:32 Add Manual Diff Complete 02/19/19 15:32 Total Counted 100 02/19/19 15:32 Seg Neuts % (Manual) 73.0 % (40.0-70.0) H 02/19/19 15:32 Band Neutrophils % 4.0 % 02/19/19 15:32 Lymphocytes % (Manual) 17.0 % (13.4-35.0) 02/19/19 15:32 Reactive Lymphs % (Man) 0 % 02/19/19 15:32 Monocytes % (Manual) 5.0 % (0.0-7.3) 02/19/19 15:32 Eosinophils % (Manual) 0 % (0.0-4.3) 02/19/19 15:32 Basophils % (Manual) 1.0 % (0.0-1.8) 02/19/19 15:32 Metamyelocytes % 0 % 02/19/19 15:32 Myelocytes % 0 % 02/19/19 15:32 Promyelocytes % 0 % 02/19/19 15:32 Blast Cells % 0 % 02/19/19 15:32 Nucleated RBC % Not Reportable 02/19/19 15:32 Seg Neutrophils # Man 10.5 K/mm3 (1.8-7.7) H 02/19/19 15:32 Band Neutrophils # 0.6 K/mm3 02/19/19 15:32 Lymphocytes # (Manual) 2.4 K/mm3 (1.2-5.4) 02/19/19 15:32 Abs React Lymphs (Man) 0.0 K/mm3 02/19/19 15:32 Monocytes # (Manual) 0.7 K/mm3 (0.0-0.8) 02/19/19 15:32 Eosinophils # (Manual) 0.0 K/mm3 (0.0-0.4) 02/19/19 15:32 Basophils # (Manual) 0.1 K/mm3 (0.0-0.1) 02/19/19 15:32 Metamyelocytes # 0.0 K/mm3 02/19/19 15:32 Myelocytes # 0.0 K/mm3 02/19/19 15:32 Promyelocytes # 0.0 K/mm3 02/19/19 15:32 Blast Cells # 0.0 K/mm3 02/19/19 15:32 WBC Morphology Not Reportable 02/19/19 15:32 Hypersegmented Neuts Not Reportable 02/19/19 15:32 Hyposegmented Neuts Not Reportable 02/19/19 15:32 Hypogranular Neuts Not Reportable 02/19/19 15:32 Smudge Cells Not Reportable 02/19/19 15:32 Toxic Granulation Not Reportable 02/19/19 15:32 Toxic Vacuolation Not Reportable 02/19/19 15:32 Dohle Bodies Not Reportable 02/19/19 15:32 Pelger-Huet Anomaly Not Reportable 02/19/19 15:32 Moises Rods Not Reportable 02/19/19 15:32 Platelet Estimate Appears normal 02/19/19 15:32 Clumped Platelets Not Reportable 02/19/19 15:32 Plt Clumps, EDTA Not Reportable 02/19/19 15:32 Large Platelets Not Reportable 02/19/19 15:32 Giant Platelets Not Reportable 02/19/19 15:32 Platelet Satelliting Not Reportable 02/19/19 15:32 Plt Morphology Comment Not Reportable 02/19/19 15:32 RBC Morphology Not Reportable 02/19/19 15:32 Dimorphic RBCs Not Reportable 02/19/19 15:32 Polychromasia Few 02/19/19 15:32 Hypochromasia 1+ 02/19/19 15:32 Poikilocytosis Few 02/19/19 15:32 Anisocytosis 1+ 02/19/19 15:32 Microcytosis 1+ 02/19/19 15:32 Macrocytosis Not Reportable 02/19/19 15:32 Spherocytes Not Reportable 02/19/19 15:32 Pappenheimer Bodies Not Reportable 02/19/19 15:32 Sickle Cells Not Reportable 02/19/19 15:32 Target Cells Not Reportable 02/19/19 15:32 Tear Drop Cells Not Reportable 02/19/19 15:32 Ovalocytes Not Reportable 02/19/19 15:32 Helmet Cells Not Reportable 02/19/19 15:32 Chandler-Nunda Bodies Not Reportable 02/19/19 15:32 [place] Rings Not Reportable 02/19/19 15:32 Mayank Cells Not Reportable 02/19/19 15:32 Bite Cells Not Reportable 02/19/19 15:32 Crenated Cell Not Reportable 02/19/19 15:32 Elliptocytes Not Reportable 02/19/19 15:32 Acanthocytes (Spur) Not Reportable 02/19/19 15:32 Rouleaux Not Reportable 02/19/19 15:32 Hemoglobin C Crystals Not Reportable 02/19/19 15:32 Schistocytes Not Reportable 02/19/19 15:32 Malaria parasites Not Reportable 02/19/19 15:32 Ankit Bodies Not Reportable 02/19/19 15:32 Hem Pathologist Commnt No 02/19/19 15:32 PT 59.9 Sec. (12.2-14.9) H 02/19/19 15:32 INR 6.27 (0.87-1.13) H* 02/19/19 15:32 APTT 43.4 Sec. (24.2-36.6) H 02/19/19 15:32 Sodium 133 mmol/L (137-145) L 02/19/19 15:32 Potassium 4.5 mmol/L (3.6-5.0) 02/19/19 15:32 Chloride 101.0 mmol/L (98-107) 02/19/19 15:32 Carbon Dioxide 18 mmol/L (22-30) L 02/19/19 15:32 Anion Gap 19 mmol/L 02/19/19 15:32 BUN 43 mg/dL (9-20) H 02/19/19 15:32 Creatinine 1.4 mg/dL (0.8-1.5) 02/19/19 15:32 Estimated GFR 51 ml/min 02/19/19 15:32 BUN/Creatinine Ratio 31 % 02/19/19 15:32 Glucose 373 mg/dL (75-100) H 02/19/19 15:32 POC Glucose 233 (70-105) H 02/19/19 19:41 Calcium 7.6 mg/dL (8.4-10.2) L 02/19/19 15:32 Total Bilirubin 0.30 mg/dL (0.1-1.2) 02/19/19 15:32 Direct Bilirubin < 0.2 mg/dL (0-0.2) 02/19/19 15:32 Indirect Bilirubin 0.1 mg/dL 02/19/19 15:32 AST 12 units/L (5-40) 02/19/19 15:32 ALT 10 units/L (7-56) 02/19/19 15:32 Alkaline Phosphatase 50 units/L (35-129) 02/19/19 15:32 Total Creatine Kinase 48 units/L (55-170) L 02/19/19 15:32 CK-MB (CK-2) 1.6 ng/mL (0.0-4.0) 02/19/19 15:32 CK-MB (CK-2) Rel Index 3.3 (0-4) 02/19/19 15:32 Troponin T 0.018 ng/mL (0.00-0.029) 02/19/19 20:04 Total Protein 5.1 g/dL (6.3-8.2) L 02/19/19 15:32 Albumin 2.9 g/dL (3.9-5) L 02/19/19 15:32 Albumin/Globulin Ratio 1.3 % 02/19/19 15:32 Triglycerides 151 mg/dL (2-149) H 02/19/19 15:32 Cholesterol 71 mg/dL (50-199) 02/19/19 15:32 LDL Cholesterol Direct 30 mg/dL (50-130) L 02/19/19 15:32 HDL Cholesterol 21 mg/dL (40-59) L 02/19/19 15:32 Cholesterol/HDL Ratio 3.38 % 02/19/19 15:32 Blood Type A POSITIVE 02/19/19 17:40 Antibody Screen Negative 02/19/19 17:40 Crossmatch See Detail 02/19/19 17:40 Short CBC 02/19/19 02/19/19 Range/Units 15:32 16:44 WBC 14.4 H (4.5-11.0) K/mm3 Hgb 5.8 L* 5.9 L* (11.8-15.2) gm/dl Hct 17.2 L* 16.6 L* (35.5-45.6) % Plt Count 225 (140-440) K/mm3 BMP 02/19/19 15:32 Sodium 133 L Potassium 4.5 Chloride 101.0 Carbon Dioxide 18 L BUN 43 H Creatinine 1.4 Glucose 373 H Calcium 7.6 L Cardiac Enzymes 02/19/19 02/19/19 02/19/19 Range/Units 15:32 15:32 17:40 Total Creatine Kinase 48 L (55-170) units/L CK-MB (CK-2) 1.6 (0.0-4.0) ng/mL Troponin T 0.033 H 0.024 (0.00-0.029) ng/mL 02/19/19 Range/Units 20:04 Total Creatine Kinase (55-170) units/L CK-MB (CK-2) (0.0-4.0) ng/mL Troponin T 0.018 (0.00-0.029) ng/mL Liver Function 02/19/19 Range/Units 15:32 Total Bilirubin 0.30 (0.1-1.2) mg/dL Direct Bilirubin < 0.2 (0-0.2) mg/dL AST 12 (5-40) units/L ALT 10 (7-56) units/L Alkaline Phosphatase 50 (35-129) units/L Albumin 2.9 L (3.9-5) g/dL - Imaging and Cardiology EKG: report reviewed Abdominal x-ray: report reviewed (NAF) Imaging and Cardiology: - EKG Data -: EKG Interpreted by Ia EKG shows normal: sinus rhythm, axis, intervals, QRS complexes, ST-T waves Rate: normal - EKG Data When compared to previous EKG there are: no significant change Interpretation: unchanged when compared t (02/01/19) Assessment and Plan Advance Directives: Yes (Full code) VTE prophylaxis?: Mechanical Plan of care discussed with patient/family: Yes - Patient Problems (1) GI bleed Current Visit: Yes Status: Acute Plan to address problem: Sec to Supratherapeutic INR of 6.22 GI consult PRBC 2 units of transfusion Monitor H?H (2) Supratherapeutic INR Current Visit: Yes Status: Acute Plan to address problem: Stop coumadin Vit K One unit of FFP (3) CAD (coronary artery disease) Current Visit: No Status: Chronic Qualifiers: Coronary Disease-Associated Artery/Lesion type: wr[place] artery Plan to address problem: Cardiology consult requested Hold ASa and Plavix (4) Acute blood loss anemia Current Visit: Yes Status: Acute Plan to address problem: transfuse 2 to 4 units Transfuse 2 units initially (5) IDDM (insulin dependent diabetes mellitus) Current Visit: Yes Status: Chronic Plan to address problem: will try to get better control Adjust dosage (6) CHF (congestive heart failure) Current Visit: Yes Status: Chronic Qualifiers: Heart failure type: combined systolic and diastolic Plan to address problem: EF was low last admission Cont Lasix (7) HTN (hypertension) Current Visit: Yes Status: Chronic Qualifiers: Hypertension type: essential hypertension Qualified Code(s): I10 - Essential (primary) hypertension Plan to address problem: Hold antihypertensives for now BP marginally low (8) HLD (hyperlipidemia) Current Visit: Yes Status: Chronic Qualifiers: Hyperlipidemia type: mixed hyperlipidemia Qualified Code(s): E78.2 - Mixed hyperlipidemia Plan to address problem: Hold statins for now (9) DVT prophylaxis Current Visit: Yes Status: Acute Plan to address problem: on SCD's and GI prophylaxis-actually protonix drip
[2019-02-19] MEDS ORDERED: SODIUM CHLORIDE FLUSH SYRINGE 10 ML IV PRN (21:58)
[2019-02-19] MEDS ORDERED: TYLENOL PO PRN (21:58)
[2019-02-19] MEDS ORDERED: ZOFRAN IV PRN (21:58)
[2019-02-19] MEDS ORDERED: NACL 0.9% 1000 ML 1,000 ML IV SCH (22:00)
[2019-02-20] MEDS: SODIUM CHLORIDE FLUSH SYRINGE 10 ML IV SCH ×2 (00:02→10:03)
[2019-02-20] MEDS: DILAUDID IV PRN ×4 (00:02→17:44)
[2019-02-20] MEDS: PROTONIX 80 MG in NACL 0.9% 100 ML IV SCH ×2 (05:30→13:45)
[2019-02-20] MEDS ORDERED: NACL 0.9% 500 ML 500 ML IV ONE (06:47)
[2019-02-20] MEDS ORDERED: NACL 0.9% 500 ML 500 ML IV NR (07:00)
[2019-02-20 09:27] LABS: Hematocrit 22.6 % (35.5-45.6); Hemoglobin 7.7 gm/dl (11.8-15.2)
[2019-02-20 09:30] LABS: Basophils # (Auto) 0.2 K/mm3 (0.0-0.1); Eosinophils # (Auto) 0.2 K/mm3 (0.0-0.4); Eosinophils % (Auto) 1.5 % (0.0-4.3); Hematocrit 22.4 % (35.5-45.6); Hemoglobin 7.7 gm/dl (11.8-15.2); Lymphocytes # (Auto) 2.3 K/mm3 (1.2-5.4); Mean Corpuscular HGB Conc 35 % (32-34); Mean Corpuscular Volume 87 fl (84-94); Monocytes # (Auto) 0.9 K/mm3 (0.0-0.8); Monocytes % (Auto) 5.8 % (0.0-7.3); Platelet Count 212 K/mm3 (140-440); Red Blood Count 2.58 M/mm3 (3.65-5.03); Red Cell Distribution Width 15.3 % (13.2-15.2)
[2019-02-20 09:39] LABS: INR 1.36 (0.87-1.13)
[2019-02-20 09:51] LABS: Alanine Aminotransferase 10 units/L (7-56); Albumin 2.9 g/dL (3.9-5); BUN/Creatinine Ratio 32; Blood Urea Nitrogen 38 mg/dL (9-20); Calcium 8.1 mg/dL (8.4-10.2); Hemolysis Index 12
--- NOTE | 2019-02-20 12:06 | Event Note ---
Date: 02/20/19 Cardiology note dictated. #1 coronary artery disease status post NSTEMI in January 2019 Status post PTCA of right coronary artery and OM 2 with stent placement. PTCA 2018 with stents in LAD #2 ischemic cardiomyopathy #3 diabetes #4 hyperlipidemia. #5 severe anemia secondary to GI bleeding and GI evaluation of progress Patient will be monitored and followed closely. Prognosis is guarded Thank you Dr. SONJA Elkins
--- NOTE | 2019-02-20 12:36 | Gastroenterology Consultation ---
History of Present Illness - Reason for Consult Consult date: 02/20/19 anemia, melena Requesting physician: EVELINA YEAGER - History of Present Illness 64-year-old male with pmh of CAD (recent stent earlier this month, HFrEF (EF 25-30%), and afib on coumadin admitted for symptomatic anemia with Hgb down to 5.8. He reports having weakness and dizziness. He noticed dark stool 2 days ago. No stool since admission. Denies abdominal pain, nausea/vomiting or diarrhea. no prior egd or colonoscopy. His H/H at discharge was 14.1/41.4 2 weeks age and it is 5.8/17.2 on presentation to the ED on admission. S/p blood transfusion. Past History Past Medical History: acute VA, CAD, heart failure Past Surgical History: denies: bowel surgery Social history: smoking Family history: no significant family history Medications and Allergies Allergies Allergy/AdvReac Type Severity Reaction Status Date / Time No Known Allergies Allergy Verified 02/02/19 00:42 Home Medications Medication Instructions Recorded Confirmed Last Taken Type Aspirin [Aspirin BABY CHEW TAB] 81 mg PO QDAY #30 tab.chew 02/04/19 02/19/19 1 Day Ago Rx ~02/18/19 AtorvaSTATin [Lipitor] 80 mg PO QHS #30 tablet 02/04/19 02/19/19 1 Day Ago Rx ~02/18/19 Clopidogrel [Plavix] 75 mg PO QDAY #30 tablet 02/04/19 02/19/19 1 Day Ago Rx ~02/18/19 Furosemide [Lasix TAB] 40 mg PO QDAY #30 tablet 02/04/19 02/19/19 1 Day Ago Rx ~02/18/19 Insulin NPH/Regular [NovoLIN 70/30] 10 unit SUB-Q BIDDIAB 30 Days 02/04/19 02/19/19 1 Day Ago Rx units ~02/18/19 Lisinopril [Zestril TAB] 5 mg PO QDAY #30 tablet 02/04/19 02/19/19 1 Day Ago Rx ~02/18/19 Metoprolol [Lopressor TAB] 50 mg PO BID #60 tablet 02/04/19 02/19/19 1 Day Ago Rx ~02/18/19 Warfarin Sodium [Coumadin] 5 mg PO DAILY #30 tablet 02/04/19 02/19/19 1 Day Ago Rx ~02/18/19 Active Meds: Active Medications Acetaminophen (Tylenol) 650 mg PO Q4H PRN PRN Reason: Pain MILD(1-3)/Fever >100.5/ESPINOZA Hydromorphone HCl (Dilaudid) 0.5 mg IV Q3H PRN PRN Reason: Pain , Severe (7-10) Last Admin: 02/20/19 11:59 Dose: 0.5 mg Documented by: Pantoprazole Sodium 80 mg/ (Sodium Chloride) 100 mls @ 10 mls/hr IV DIRECT MELINA Last Admin: 02/20/19 05:30 Dose: 8 mg/hr, 10 mls/hr Documented by: Sodium Chloride (Nacl 0.9% 1000 Ml) 1,000 mls @ 75 mls/hr IV DIRECT MELINA Last Admin: 02/20/19 01:51 Dose: 75 mls/hr Documented by: Ondansetron HCl (Zofran) 4 mg IV Q8H PRN PRN Reason: Nausea And Vomiting Sodium Chloride (Sodium Chloride Flush Syringe 10 Ml) 10 ml IV BID MELINA Last Admin: 02/20/19 10:03 Dose: 10 ml Documented by: Sodium Chloride (Sodium Chloride Flush Syringe 10 Ml) 10 ml IV PRN PRN PRN Reason: LINE FLUSH Review of Systems - Review of Systems All systems: negative Constitutional: weakness, no weight loss, no weight gain, no fever, no chills Eyes: no change in vision, no pain Ears, Nose, Throat: no difficulty swallowing Cardiovascular: no chest pain, no edema Gastrointestinal: melena, no abdominal pain, no nausea, no vomiting, no diarrhea, no constipation, no BRBPR Musculoskeletal: no joint pain Neurological: weakness Hematologic/Lymphatic: easy bruising Exam - Constitutional Vital Signs: Temp Pulse Resp BP Pulse Ox 98.2 F 89 16 118/57 99 02/20/19 11:56 02/20/19 11:56 02/20/19 11:56 02/20/19 11:56 02/20/19 10:00 General appearance: no acute distress, well-nourished - EENT ENT: hearing intact, clear oral mucosa - Neck Neck: supple, normal ROM, no masses or JVD - Respiratory Respiratory effort: normal Respiratory: bilateral: CTA - Breasts Breasts: deferred - Cardiovascular Rhythm: regular Heart Sounds: Present: S1 & S2. Absent: gallop, rub Extremities: pulses intact, No edema, normal color, Full ROM - Integumentary Integumentary: Present: clear, warm, dry - Neurologic Neurological: alert and oriented x3 - Psychiatric Psychiatric: appropriate mood/affect, intact judgment & insight, memory intact - Labs CBC & Chem 7: 02/20/19 08:32 02/20/19 08:32 Lab Results: Laboratory Results - last 24 hr 02/19/19 02/19/19 02/19/19 15:32 15:32 15:32 WBC 14.4 H RBC 1.89 L Hgb 5.8 L* Hct 17.2 L* MCV 91 MCH 31 MCHC 34 RDW 14.3 Plt Count 225 Lymph % (Auto) [place] % (Auto) Eos % (Auto) Baso % (Auto) Lymph # [place] # Eos # Baso # Add Manual Diff Complete Total Counted 100 Seg Neutrophils % Seg Neuts % (Manual) 73.0 H Band Neutrophils % 4.0 Lymphocytes % (Manual) 17.0 Reactive Lymphs % (Man) 0 Monocytes % (Manual) 5.0 Eosinophils % (Manual) 0 Basophils % (Manual) 1.0 Metamyelocytes % 0 Myelocytes % 0 Promyelocytes % 0 Blast Cells % 0 Nucleated RBC % Not Reportable Seg Neutrophils # Seg Neutrophils # Man 10.5 H Band Neutrophils # 0.6 Lymphocytes # (Manual) 2.4 Abs React Lymphs (Man) 0.0 Monocytes # (Manual) 0.7 Eosinophils # (Manual) 0.0 Basophils # (Manual) 0.1 Metamyelocytes # 0.0 Myelocytes # 0.0 Promyelocytes # 0.0 Blast Cells # 0.0 WBC Morphology Not Reportable Hypersegmented Neuts Not Reportable Hyposegmented Neuts Not Reportable Hypogranular Neuts Not Reportable Smudge Cells Not Reportable Toxic Granulation Not Reportable Toxic Vacuolation Not Reportable Dohle Bodies Not Reportable Pelger-Huet Anomaly Not Reportable Moises Rods Not Reportable Platelet Estimate Appears normal Clumped Platelets Not Reportable Plt Clumps, EDTA Not Reportable Large Platelets Not Reportable Giant Platelets Not Reportable Platelet Satelliting Not Reportable Plt Morphology Comment Not Reportable RBC Morphology Not Reportable Dimorphic RBCs Not Reportable Polychromasia Few Hypochromasia 1+ Poikilocytosis Few Anisocytosis 1+ Microcytosis 1+ Macrocytosis Not Reportable Spherocytes Not Reportable Pappenheimer Bodies Not Reportable Sickle Cells Not Reportable Target Cells Not Reportable Tear Drop Cells Not Reportable Ovalocytes Not Reportable Helmet Cells Not Reportable [place] Bodies Not Reportable [place] Rings Not Reportable Mayank Cells Not Reportable Bite Cells Not Reportable Crenated Cell Not Reportable Elliptocytes Not Reportable Acanthocytes (Spur) Not Reportable Rouleaux Not Reportable Hemoglobin C Crystals Not Reportable Schistocytes Not Reportable Malaria parasites Not Reportable Ankit Bodies Not Reportable Hem Pathologist Commnt No PT 59.9 H INR 6.27 H* APTT 43.4 H Sodium 133 L Potassium 4.5 Chloride 101.0 Carbon Dioxide 18 L Anion Gap 19 BUN 43 H Creatinine 1.4 Estimated GFR 51 BUN/Creatinine Ratio 31 Glucose 373 H POC Glucose Hemoglobin A1c Calcium 7.6 L Total Bilirubin Direct Bilirubin Indirect Bilirubin AST ALT Alkaline Phosphatase Total Creatine Kinase CK-MB (CK-2) CK-MB (CK-2) Rel Index Troponin T 0.033 H Total Protein Albumin Albumin/Globulin Ratio Triglycerides 151 H Cholesterol 71 LDL Cholesterol Direct 30 L HDL Cholesterol 21 L Cholesterol/HDL Ratio 3.38 Blood Type Antibody Screen Crossmatch 02/19/19 02/19/19 02/19/19 15:32 16:44 17:40 WBC RBC Hgb 5.9 L* Hct 16.6 L* MCV MCH MCHC RDW Plt Count Lymph % (Auto) [place] % (Auto) Eos % (Auto) Baso % (Auto) Lymph # [place] # Eos # Baso # Add Manual Diff Total Counted Seg Neutrophils % Seg Neuts % (Manual) Band Neutrophils % Lymphocytes % (Manual) Reactive Lymphs % (Man) Monocytes % (Manual) Eosinophils % (Manual) Basophils % (Manual) Metamyelocytes % Myelocytes % Promyelocytes % Blast Cells % Nucleated RBC % Seg Neutrophils # Seg Neutrophils # Man Band Neutrophils # Lymphocytes # (Manual) Abs React Lymphs (Man) Monocytes # (Manual) Eosinophils # (Manual) Basophils # (Manual) Metamyelocytes # Myelocytes # Promyelocytes # Blast Cells # WBC Morphology Hypersegmented Neuts Hyposegmented Neuts Hypogranular Neuts Smudge Cells Toxic Granulation Toxic Vacuolation Dohle Bodies Pelger-Huet Anomaly Moises Rods Platelet Estimate Clumped Platelets Plt Clumps, EDTA Large Platelets Giant Platelets Platelet Satelliting Plt Morphology Comment RBC Morphology Dimorphic RBCs Polychromasia Hypochromasia Poikilocytosis Anisocytosis Microcytosis Macrocytosis Spherocytes Pappenheimer Bodies Sickle Cells Target Cells Tear Drop Cells Ovalocytes Helmet Cells [place] Bodies [place] Rings Mayank Cells Bite Cells Crenated Cell Elliptocytes Acanthocytes (Spur) Rouleaux Hemoglobin C Crystals Schistocytes Malaria parasites Ankit Bodies Hem Pathologist Commnt PT INR APTT Sodium Potassium Chloride Carbon Dioxide Anion Gap BUN Creatinine Estimated GFR BUN/Creatinine Ratio Glucose POC Glucose Hemoglobin A1c Calcium Total Bilirubin 0.30 Direct Bilirubin < 0.2 Indirect Bilirubin 0.1 AST 12 ALT 10 Alkaline Phosphatase 50 Total Creatine Kinase 48 L CK-MB (CK-2) 1.6 CK-MB (CK-2) Rel Index 3.3 Troponin T 0.024 Total Protein 5.1 L Albumin 2.9 L Albumin/Globulin Ratio 1.3 Triglycerides Cholesterol LDL Cholesterol Direct HDL Cholesterol Cholesterol/HDL Ratio Blood Type Antibody Screen Crossmatch 02/19/19 02/19/19 02/19/19 17:40 19:41 20:04 WBC RBC Hgb Hct MCV MCH MCHC RDW Plt Count Lymph % (Auto) [place] % (Auto) Eos % (Auto) Baso % (Auto) Lymph # [place] # Eos # Baso # Add Manual Diff Total Counted Seg Neutrophils % Seg Neuts % (Manual) Band Neutrophils % Lymphocytes % (Manual) Reactive Lymphs % (Man) Monocytes % (Manual) Eosinophils % (Manual) Basophils % (Manual) Metamyelocytes % Myelocytes % Promyelocytes % Blast Cells % Nucleated RBC % Seg Neutrophils # Seg Neutrophils # Man Band Neutrophils # Lymphocytes # (Manual) Abs React Lymphs (Man) Monocytes # (Manual) Eosinophils # (Manual) Basophils # (Manual) Metamyelocytes # Myelocytes # Promyelocytes # Blast Cells # WBC Morphology Hypersegmented Neuts Hyposegmented Neuts Hypogranular Neuts Smudge Cells Toxic Granulation Toxic Vacuolation Dohle Bodies Pelger-Huet Anomaly Moises Rods Platelet Estimate Clumped Platelets Plt Clumps, EDTA Large Platelets Giant Platelets Platelet Satelliting Plt Morphology Comment RBC Morphology Dimorphic RBCs Polychromasia Hypochromasia Poikilocytosis Anisocytosis Microcytosis Macrocytosis Spherocytes Pappenheimer Bodies Sickle Cells Target Cells Tear Drop Cells Ovalocytes Helmet Cells [place] Bodies [place] Rings [place] Cells Bite Cells Crenated Cell Elliptocytes Acanthocytes (Spur) Rouleaux Hemoglobin C Crystals Schistocytes Malaria parasites Ankit Bodies Hem Pathologist Commnt PT INR APTT Sodium Potassium Chloride Carbon Dioxide Anion Gap BUN Creatinine Estimated GFR BUN/Creatinine Ratio Glucose POC Glucose 233 H Hemoglobin A1c Calcium Total Bilirubin Direct Bilirubin Indirect Bilirubin AST ALT Alkaline Phosphatase Total Creatine Kinase CK-MB (CK-2) CK-MB (CK-2) Rel Index Troponin T 0.018 Total Protein Albumin Albumin/Globulin Ratio Triglycerides Cholesterol LDL Cholesterol Direct HDL Cholesterol Cholesterol/HDL Ratio Blood Type A POSITIVE Antibody Screen Negative Crossmatch See Detail 02/20/19 02/20/19 02/20/19 08:32 08:32 08:32 WBC 15.5 H RBC 2.58 L Hgb 7.7 L Hct 22.4 L MCV 87 MCH 30 MCHC 35 H RDW 15.3 H Plt Count 212 Lymph % (Auto) 15.0 [place] % (Auto) 5.8 Eos % (Auto) 1.5 Baso % (Auto) 1.0 Lymph # 2.3 [place] # 0.9 H Eos # 0.2 Baso # 0.2 H Add Manual Diff Total Counted Seg Neutrophils % 76.7 H Seg Neuts % (Manual) Band Neutrophils % Lymphocytes % (Manual) Reactive Lymphs % (Man) Monocytes % (Manual) Eosinophils % (Manual) Basophils % (Manual) Metamyelocytes % Myelocytes % Promyelocytes % Blast Cells % Nucleated RBC % Seg Neutrophils # 11.9 H Seg Neutrophils # Man Band Neutrophils # Lymphocytes # (Manual) Abs React Lymphs (Man) Monocytes # (Manual) Eosinophils # (Manual) Basophils # (Manual) Metamyelocytes # Myelocytes # Promyelocytes # Blast Cells # WBC Morphology Hypersegmented Neuts Hyposegmented Neuts Hypogranular Neuts Smudge Cells Toxic Granulation Toxic Vacuolation Dohle Bodies Pelger-Huet Anomaly Moises Rods Platelet Estimate Clumped Platelets Plt Clumps, EDTA Large Platelets Giant Platelets Platelet Satelliting Plt Morphology Comment RBC Morphology Dimorphic RBCs Polychromasia Hypochromasia Poikilocytosis Anisocytosis Microcytosis Macrocytosis Spherocytes Pappenheimer Bodies Sickle Cells Target Cells Tear Drop Cells Ovalocytes Helmet Cells [place] Bodies [place] Rings Mayank Cells Bite Cells Crenated Cell Elliptocytes Acanthocytes (Spur) Rouleaux Hemoglobin C Crystals Schistocytes Malaria parasites Ankit Bodies Hem Pathologist Commnt PT INR APTT Sodium 137 Potassium 4.3 Chloride 106.6 Carbon Dioxide 19 L Anion Gap 16 BUN 38 H Creatinine 1.2 Estimated GFR > 60 BUN/Creatinine Ratio 32 Glucose 200 H POC Glucose Hemoglobin A1c 9.8 H Calcium 8.1 L Total Bilirubin 0.40 Direct Bilirubin Indirect Bilirubin AST 14 ALT 10 Alkaline Phosphatase 51 Total Creatine Kinase CK-MB (CK-2) CK-MB (CK-2) Rel Index Troponin T Total Protein 5.6 L Albumin 2.9 L Albumin/Globulin Ratio 1.1 Triglycerides Cholesterol LDL Cholesterol Direct HDL Cholesterol Cholesterol/HDL Ratio Blood Type Antibody Screen Crossmatch 02/20/19 02/20/19 08:32 08:32 WBC RBC Hgb 7.7 L Hct 22.6 L MCV MCH MCHC RDW Plt Count Lymph % (Auto) [place] % (Auto) Eos % (Auto) Baso % (Auto) Lymph # [place] # Eos # Baso # Add Manual Diff Total Counted Seg Neutrophils % Seg Neuts % (Manual) Band Neutrophils % Lymphocytes % (Manual) Reactive Lymphs % (Man) Monocytes % (Manual) Eosinophils % (Manual) Basophils % (Manual) Metamyelocytes % Myelocytes % Promyelocytes % Blast Cells % Nucleated RBC % Seg Neutrophils # Seg Neutrophils # Man Band Neutrophils # Lymphocytes # (Manual) Abs React Lymphs (Man) Monocytes # (Manual) Eosinophils # (Manual) Basophils # (Manual) Metamyelocytes # Myelocytes # Promyelocytes # Blast Cells # WBC Morphology Hypersegmented Neuts Hyposegmented Neuts Hypogranular Neuts Smudge Cells Toxic Granulation Toxic Vacuolation Dohle Bodies Pelger-Huet Anomaly Moises Rods Platelet Estimate Clumped Platelets Plt Clumps, EDTA Large Platelets Giant Platelets Platelet Satelliting Plt Morphology Comment RBC Morphology Dimorphic RBCs Polychromasia Hypochromasia Poikilocytosis Anisocytosis Microcytosis Macrocytosis Spherocytes Pappenheimer Bodies Sickle Cells Target Cells Tear Drop Cells Ovalocytes Helmet Cells [place] Bodies [place] Rings [place] Cells Bite Cells Crenated Cell Elliptocytes Acanthocytes (Spur) Rouleaux Hemoglobin C Crystals Schistocytes Malaria parasites Ankit Bodies Hem Pathologist Commnt PT 17.6 H INR 1.36 H APTT Sodium Potassium Chloride Carbon Dioxide Anion Gap BUN Creatinine Estimated GFR BUN/Creatinine Ratio Glucose POC Glucose Hemoglobin A1c Calcium Total Bilirubin Direct Bilirubin Indirect Bilirubin AST ALT Alkaline Phosphatase Total Creatine Kinase CK-MB (CK-2) CK-MB (CK-2) Rel Index Troponin T Total Protein Albumin Albumin/Globulin Ratio Triglycerides Cholesterol LDL Cholesterol Direct HDL Cholesterol Cholesterol/HDL Ratio Blood Type Antibody Screen Crossmatch Assessment and Plan Acute anemia with Hgb down to 5.8 from prior at 14 in the setting of anticoagulation with ASA/plavix and supratherapuetic INR with coumadin as well as NSAID use. Melena 2 days ago. - currently s/p blood transfusion. - HD stable. - no additional active GI bleeding. Rec: - continue with PPI IV - will plan for EGD tomorrow. - clear liquids today and NPO MN. - patient with recent cardiac stent and will need to be on ASA/plavix. - will need cardiac clearance prior to sedation and endoscopy. - will follow. - Patient Problems (1) Acute blood loss anemia Current Visit: Yes Status: Acute (2) Melena Current Visit: Yes Status: Acute (3) Supratherapeutic INR Current Visit: Yes Status: Acute
--- NOTE | 2019-02-20 12:47 | Progress Note ---
Assessment and Plan Assessment and plan: (1) GI bleed Likely due to NSAIDs and aspirin Patient was on Coumadin and INR of 6.22 yesterday and given vitamin K and currently INR is 1.36 GI consulted and will to do EGD tomorrow PRBC 2 units of transfusion, immobilize this morning was 7.7 Patient started on clear liquid diet, continue Protonix (2) Supratherapeutic INR Stop coumadin, Vit K, One unit of FFP INR is 1.36 Cardiology consulted whether to continue Coumadin or not (3) CAD (coronary artery disease) Cardiology consult requested Hold ASa and Plavix (4) Acute blood loss anemia transfused 2 units of blood and hemoglobin was 7.7 (5) IDDM (insulin dependent diabetes mellitus) - Sliding-scale insulin, ADA diet, Accu-Chek, adjust as needed. (6) CHF (congestive heart failure): EF was low last admission Cont Lasix (7) HTN (hypertension) Hold antihypertensives for now BP marginally low (8) HLD (hyperlipidemia): Hold statins for now (9) DVT prophylaxis on SCD's History Interval history: Patient was seen and evaluated this morning, patient was feeling tired. No rectal bleeding, no chest pain or shortness of breath. Hospitalist Physical - Physical exam Narrative exam: Not in cardiopulmonary distress. The patient appeared well nourished and normally developed. Vital signs as documented. Head exam is unremarkable. No scleral icterus . Neck is without jugular venous distension, thyromegaly, or carotid bruits. Lungs are clear to auscultation. Cardiac exam reveals regular rate and Rhythm. Abdominal exam reveals normal bowel sounds. Extremities are nonedematous and both femoral and pedal pulses are normal. 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 No focal weakness. - Constitutional Vitals: Temp Pulse Resp BP Pulse Ox 98.2 F 89 16 118/57 99 02/20/19 11:56 02/20/19 11:56 02/20/19 11:56 02/20/19 11:56 02/20/19 10:00 General appearance: Present: no acute distress, well-nourished Results - Labs CBC & Chem 7: 02/20/19 08:32 02/20/19 08:32 Labs: Laboratory Last Values WBC 15.5 K/mm3 (4.5-11.0) H 02/20/19 08:32 RBC 2.58 M/mm3 (3.65-5.03) L 02/20/19 08:32 Hgb 7.7 gm/dl (11.8-15.2) L 02/20/19 08:32 Hct 22.6 % (35.5-45.6) L 02/20/19 08:32 MCV 87 fl (84-94) 02/20/19 08:32 MCH 30 pg (28-32) 02/20/19 08:32 MCHC 35 % (32-34) H 02/20/19 08:32 RDW 15.3 % (13.2-15.2) H 02/20/19 08:32 Plt Count 212 K/mm3 (140-440) 02/20/19 08:32 Lymph % (Auto) 15.0 % (13.4-35.0) 02/20/19 08:32 [place] % (Auto) 5.8 % (0.0-7.3) 02/20/19 08:32 Eos % (Auto) 1.5 % (0.0-4.3) 02/20/19 08:32 Baso % (Auto) 1.0 % (0.0-1.8) 02/20/19 08:32 Lymph # 2.3 K/mm3 (1.2-5.4) 02/20/19 08:32 [place] # 0.9 K/mm3 (0.0-0.8) H 02/20/19 08:32 Eos # 0.2 K/mm3 (0.0-0.4) 02/20/19 08:32 Baso # 0.2 K/mm3 (0.0-0.1) H 02/20/19 08:32 Add Manual Diff Complete 02/19/19 15:32 Total Counted 100 02/19/19 15:32 Seg Neutrophils % 76.7 % (40.0-70.0) H 02/20/19 08:32 Seg Neuts % (Manual) 73.0 % (40.0-70.0) H 02/19/19 15:32 Band Neutrophils % 4.0 % 02/19/19 15:32 Lymphocytes % (Manual) 17.0 % (13.4-35.0) 02/19/19 15:32 Reactive Lymphs % (Man) 0 % 02/19/19 15:32 Monocytes % (Manual) 5.0 % (0.0-7.3) 02/19/19 15:32 Eosinophils % (Manual) 0 % (0.0-4.3) 02/19/19 15:32 Basophils % (Manual) 1.0 % (0.0-1.8) 02/19/19 15:32 Metamyelocytes % 0 % 02/19/19 15:32 Myelocytes % 0 % 02/19/19 15:32 Promyelocytes % 0 % 02/19/19 15:32 Blast Cells % 0 % 02/19/19 15:32 Nucleated RBC % Not Reportable 02/19/19 15:32 Seg Neutrophils # 11.9 K/mm3 (1.8-7.7) H 02/20/19 08:32 Seg Neutrophils # Man 10.5 K/mm3 (1.8-7.7) H 02/19/19 15:32 Band Neutrophils # 0.6 K/mm3 02/19/19 15:32 Lymphocytes # (Manual) 2.4 K/mm3 (1.2-5.4) 02/19/19 15:32 Abs React Lymphs (Man) 0.0 K/mm3 02/19/19 15:32 Monocytes # (Manual) 0.7 K/mm3 (0.0-0.8) 02/19/19 15:32 Eosinophils # (Manual) 0.0 K/mm3 (0.0-0.4) 02/19/19 15:32 Basophils # (Manual) 0.1 K/mm3 (0.0-0.1) 02/19/19 15:32 Metamyelocytes # 0.0 K/mm3 02/19/19 15:32 Myelocytes # 0.0 K/mm3 02/19/19 15:32 Promyelocytes # 0.0 K/mm3 02/19/19 15:32 Blast Cells # 0.0 K/mm3 02/19/19 15:32 WBC Morphology Not Reportable 02/19/19 15:32 Hypersegmented Neuts Not Reportable 02/19/19 15:32 Hyposegmented Neuts Not Reportable 02/19/19 15:32 Hypogranular Neuts Not Reportable 02/19/19 15:32 Smudge Cells Not Reportable 02/19/19 15:32 Toxic Granulation Not Reportable 02/19/19 15:32 Toxic Vacuolation Not Reportable 02/19/19 15:32 Dohle Bodies Not Reportable 02/19/19 15:32 Pelger-Huet Anomaly Not Reportable 02/19/19 15:32 Moises Rods Not Reportable 02/19/19 15:32 Platelet Estimate Appears normal 02/19/19 15:32 Clumped Platelets Not Reportable 02/19/19 15:32 Plt Clumps, EDTA Not Reportable 02/19/19 15:32 Large Platelets Not Reportable 02/19/19 15:32 Giant Platelets Not Reportable 02/19/19 15:32 Platelet Satelliting Not Reportable 02/19/19 15:32 Plt Morphology Comment Not Reportable 02/19/19 15:32 RBC Morphology Not Reportable 02/19/19 15:32 Dimorphic RBCs Not Reportable 02/19/19 15:32 Polychromasia Few 02/19/19 15:32 Hypochromasia 1+ 02/19/19 15:32 Poikilocytosis Few 02/19/19 15:32 Anisocytosis 1+ 02/19/19 15:32 Microcytosis 1+ 02/19/19 15:32 Macrocytosis Not Reportable 02/19/19 15:32 Spherocytes Not Reportable 02/19/19 15:32 Pappenheimer Bodies Not Reportable 02/19/19 15:32 Sickle Cells Not Reportable 02/19/19 15:32 Target Cells Not Reportable 02/19/19 15:32 Tear Drop Cells Not Reportable 02/19/19 15:32 Ovalocytes Not Reportable 02/19/19 15:32 Helmet Cells Not Reportable 02/19/19 15:32 Chandler-Alderton Bodies Not Reportable 02/19/19 15:32 [place] Rings Not Reportable 02/19/19 15:32 Mayank Cells Not Reportable 02/19/19 15:32 Bite Cells Not Reportable 02/19/19 15:32 Crenated Cell Not Reportable 02/19/19 15:32 Elliptocytes Not Reportable 02/19/19 15:32 Acanthocytes (Spur) Not Reportable 02/19/19 15:32 Rouleaux Not Reportable 02/19/19 15:32 Hemoglobin C Crystals Not Reportable 02/19/19 15:32 Schistocytes Not Reportable 02/19/19 15:32 Malaria parasites Not Reportable 02/19/19 15:32 Ankit Bodies Not Reportable 02/19/19 15:32 Hem Pathologist Commnt No 02/19/19 15:32 PT 17.6 Sec. (12.2-14.9) H 02/20/19 08:32 INR 1.36 (0.87-1.13) H 02/20/19 08:32 APTT 43.4 Sec. (24.2-36.6) H 02/19/19 15:32 Sodium 137 mmol/L (137-145) 02/20/19 08:32 Potassium 4.3 mmol/L (3.6-5.0) 02/20/19 08:32 Chloride 106.6 mmol/L (98-107) 02/20/19 08:32 Carbon Dioxide 19 mmol/L (22-30) L 02/20/19 08:32 Anion Gap 16 mmol/L 02/20/19 08:32 BUN 38 mg/dL (9-20) H 02/20/19 08:32 Creatinine 1.2 mg/dL (0.8-1.5) 02/20/19 08:32 Estimated GFR > 60 ml/min 02/20/19 08:32 BUN/Creatinine Ratio 32 % 02/20/19 08:32 Glucose 200 mg/dL (75-100) H 02/20/19 08:32 POC Glucose 233 (70-105) H 02/19/19 19:41 Hemoglobin A1c 9.8 % (4-6) H 02/20/19 08:32 Calcium 8.1 mg/dL (8.4-10.2) L 02/20/19 08:32 Total Bilirubin 0.40 mg/dL (0.1-1.2) 02/20/19 08:32 Direct Bilirubin < 0.2 mg/dL (0-0.2) 02/19/19 15:32 Indirect Bilirubin 0.1 mg/dL 02/19/19 15:32 AST 14 units/L (5-40) 02/20/19 08:32 ALT 10 units/L (7-56) 02/20/19 08:32 Alkaline Phosphatase 51 units/L (35-129) 02/20/19 08:32 Total Creatine Kinase 48 units/L (55-170) L 02/19/19 15:32 CK-MB (CK-2) 1.6 ng/mL (0.0-4.0) 02/19/19 15:32 CK-MB (CK-2) Rel Index 3.3 (0-4) 02/19/19 15:32 Troponin T 0.018 ng/mL (0.00-0.029) 02/19/19 20:04 Total Protein 5.6 g/dL (6.3-8.2) L 02/20/19 08:32 Albumin 2.9 g/dL (3.9-5) L 02/20/19 08:32 Albumin/Globulin Ratio 1.1 % 02/20/19 08:32 Triglycerides 151 mg/dL (2-149) H 02/19/19 15:32 Cholesterol 71 mg/dL (50-199) 02/19/19 15:32 LDL Cholesterol Direct 30 mg/dL (50-130) L 02/19/19 15:32 HDL Cholesterol 21 mg/dL (40-59) L 02/19/19 15:32 Cholesterol/HDL Ratio 3.38 % 02/19/19 15:32 Blood Type A POSITIVE 02/19/19 17:40 Antibody Screen Negative 02/19/19 17:40 Crossmatch See Detail 02/19/19 17:40 Active Medications - Current Medications Current Medications: Generic Name Dose Route Start Last Admin Trade Name Freq PRN Reason Stop Dose Admin Acetaminophen 650 mg 02/19/19 21:58 Tylenol PO Q4H PRN Pain MILD(1-3)/Fever >100.5/ESPINOZA Hydromorphone HCl 0.5 mg 02/19/19 21:58 02/20/19 11:59 Dilaudid IV 0.5 mg Q3H PRN Administration Pain , Severe (7-10) Pantoprazole Sodium 80 mg/ 100 mls @ 10 mls/hr 02/19/19 19:00 02/20/19 05:30 Sodium Chloride IV 8 mg/hr DIRECT MELINA 10 mls/hr Administration 8 MG/HR Sodium Chloride 1,000 mls @ 75 mls/hr 02/19/19 22:00 02/20/19 01:51 Nacl 0.9% 1000 Ml IV 75 mls/hr DIRECT MELINA Administration Ondansetron HCl 4 mg 02/19/19 21:58 Zofran IV Q8H PRN Nausea And Vomiting Sodium Chloride 10 ml 02/19/19 22:00 02/20/19 10:03 Sodium Chloride Flush Syringe 10 Ml IV 10 ml BID MELINA Administration Sodium Chloride 10 ml 02/19/19 21:58 Sodium Chloride Flush Syringe 10 Ml IV PRN PRN LINE FLUSH
--- NOTE | 2019-02-20 19:43 | Consultation ---
CARDIOLOGY EVALUATION HISTORY OF PRESENT ILLNESS: The patient is a 64-year-old gentleman who is known to have coronary artery disease and had PCI with 2 stents placed in [facility] in December 2017. The patient was recently admitted with difficulty in breathing and his cardiac enzymes were positive for NSTEMI. The patient underwent cardiac catheterization on 02/03/2019. Left main coronary was patent. Left anterior descending coronary artery has a proximal stent, which was patent, mid stent was also noted to be patent. Circumflex was patent. Ramus was small caliber, less than 1.5. OM was patent. OM2 drug-eluting stent was placed. Proximal RCA was also opened up. [id number] left ventricular systolic dysfunction was also noted. Echocardiogram done on 02/03/2019 showed ejection fraction of 25-30% with left ventricular hypertrophy. Mild mitral regurgitation was present. Currently, the patient is admitted with history of black stools and feeling of weakness when he got up. The patient denies any chest pain or difficulty in breathing. The patient has no prior history of peptic ulcer disease. In the Emergency Room, his hemoglobin was noted to be 5.8 with hematocrit of 17.2. SYSTEMS REVIEW: HEAD, EYES, EARS, NOSE AND THROAT: No symptoms. ENDOCRINE: No symptoms. RESPIRATORY: No history of cough or difficulty in breathing. GASTROINTESTINAL: No abdominal pain, nausea, or vomiting; however, as mentioned earlier, the patient did have black stools. GENITOURINARY: No symptoms. CENTRAL NERVOUS SYSTEM: No symptoms. PERSONAL HISTORY: Smokes about 1 pack per week prior to that he used to smoke fairly heavily. DRUG ALLERGIES: None. PHYSICAL EXAMINATION: GENERAL: Adult gentleman, well built, well nourished, in no distress and appears to be comfortable. HEAD, EYES, EARS, NOSE AND THROAT: Unremarkable. NECK: Supple. No thyromegaly. Both carotids are palpable and equal. Neck veins are flat. CHEST: Symmetrical. LUNGS: Clear. CARDIOVASCULAR: S1 and S2 are heard well. No S3. ABDOMEN: Soft, nontender. EXTREMITIES: No calf tenderness. LABORATORY DATA: EKG sinus rhythm, minor ST changes, no acute abnormalities are present. WBC 15.5, hemoglobin 7.7, hematocrit 22.6. Sodium 137, potassium 4.3, BUN 38, creatinine 1.2, blood sugar 200. Total cholesterol 71, LDL 30 and HDL 21. IMPRESSION: 1. Coronary artery disease, status post PTCA and stent placement on 02/03/2019. History of previous stents about 1 year ago. 2. Ischemic cardiomyopathy, ejection fraction 25-30%. 3. Paroxysmal atrial fibrillation. 4. Hyperlipidemia. 5. Diabetes. 6. Gastrointestinal bleeding. PLAN: The patient is seen for cardiac evaluation. Clinically, he appears to be stable and has no significant angina or evidence of ischemia. Evaluation for the GI bleeding is in progress. Currently, he is tolerating the anemia. His aspirin and Plavix have been on hold for now. The patient will be monitored and followed closely with you. Thank you, Dr. Lauren for allowing me to participate in the care of this gentleman. JOB# [id number] CHILANGO/TATYANA
[2019-02-20] MEDS ORDERED: LASIX IV ONE (19:58)
[2019-02-20 20:56] LABS: Hematocrit 25.8 % (35.5-45.6); Hemoglobin 8.8 gm/dl (11.8-15.2)
[2019-02-21] MEDS: SODIUM CHLORIDE FLUSH SYRINGE 10 ML IV SCH ×3 (01:42→23:18)
[2019-02-21] MEDS: PROTONIX 80 MG in NACL 0.9% 100 ML IV SCH (02:48)
--- NOTE | 2019-02-21 13:35 | Progress Note ---
Assessment and Plan GI evaluation in progress. Await recs. Pt currently at moderate cardiovascular risk for endoscopy. No current cardiac contraindications to proceeding with endoscopy at this time. The patient has been seen in conjunction with Dr. Thomas who agrees with the assessment and plan of care. - Patient Problems (1) Symptomatic anemia Current Visit: Yes Status: Acute (2) GI bleed Current Visit: Yes Status: Acute (3) Supratherapeutic INR Current Visit: Yes Status: Acute (4) Paroxysmal atrial fibrillation Current Visit: Yes Status: Chronic (5) HTN (hypertension) Current Visit: Yes Status: Chronic Qualifiers: Hypertension type: essential hypertension Qualified Code(s): I10 - Essential (primary) hypertension (6) CAD (coronary artery disease) Current Visit: Yes Status: Chronic Qualifiers: Coronary Disease-Associated Artery/Lesion type: [place] artery (7) Stented coronary artery Current Visit: Yes Status: Chronic (8) Ischemic cardiomyopathy Current Visit: Yes Status: Chronic (9) Diabetes mellitus Current Visit: Yes Status: Chronic Qualifiers: Diabetes mellitus type: type 2 (10) HLD (hyperlipidemia) Current Visit: Yes Status: Chronic Qualifiers: Hyperlipidemia type: mixed hyperlipidemia Qualified Code(s): E78.2 - Mixed hyperlipidemia Subjective Date of service: 02/21/19 Principal diagnosis: symptomatic anemia Interval history: pt resting in bed, no current cardiac complaints. for EGD today. in SR on tele. Objective Last Vital Signs Temp 98.2 F 02/21/19 11:07 Pulse 76 02/21/19 11:07 Resp 20 02/21/19 08:00 BP 129/62 02/21/19 11:07 Pulse Ox 100 02/21/19 11:07 - Physical Examination General: No Apparent Distress HEENT: Positive: PERRL, Normocephaly, Mucus Membranes Moist Neck: Positive: neck supple, trachea midline Cardiac: Positive: Reg Rate and Rhythm, S1/S2 Lungs: Positive: Decreased Breath Sounds Neuro: Positive: Grossly Intact Abdomen: Positive: Soft. Negative: Tender Skin: Negative: Rash, Wound Musculoskeletal: No Pain Extremities: Absent: edema - Labs and Meds CBC 02/20/19 Range/Units 20:38 Hgb 8.8 L (11.8-15.2) gm/dl Hct 25.8 L (35.5-45.6) % - Imaging and Cardiology EKG: report reviewed, image reviewed Echo: report reviewed (01/2019: EF 25-30%, mild MR, trace TR. ) Cardiac cath: report reviewed (02/03/2019: left main patent, lad prox stent patent, mid stent patent, circ patent, ramus small caliber diffusely diseased, OM1 patent, PCI of OM2 with [place], PCI of prox RCA ) - Telemetry EKG Rhythm: Sinus Rhythm
[2019-02-21] MEDS ORDERED: NACL 0.9% 1000 ML 1,000 ML IV SCH (14:00)
[2019-02-21] MEDS: NACL 0.9% 1000 ML 1,000 ML IV SCH (14:22)
[2019-02-21] MEDS ORDERED: HURRICAINE ONE 20% TOPICAL SPRAY MM ×2 (14:30→14:37)
[2019-02-21] MEDS ORDERED: VERSED ONE (14:34)
[2019-02-21] MEDS ORDERED: KETALAR ONE (14:34)
[2019-02-21] MEDS ORDERED: DIPRIVAN 10 MG/ML IV ONE (14:34)
[2019-02-21] MEDS ORDERED: SUBLIMAZE ONE (14:44)
--- NOTE | 2019-02-21 14:58 | Operative Report ---
Operative Report Operative Report: Date of procedure: 02/21/2019 Procedure: Esophagogastroduodenoscopy Preprocedure diagnosis: anemia, melena Post procedure diagnosis: esophagitis, gastritis, gastric erosion Endoscopist: Sebastian Rai MD Anesthesia: Monitored anesthesia care per anesthesia department Medications: Propofol per anesthesia Estimated blood loss: 0 After careful discussion of the nature and purpose of the procedure as well as details the technique risks benefits and alternatives consent was obtained. The patient was placed in the left lateral decubitus position and medicated per anesthesia. The tip of the [employer] EQ 570 video scope was passed per orum under direct vision into the esophagus and advanced into the stomach and 2nd part of the duodenum. The examined part of the duodenum appeared normal. The scope was withdrawn into the stomach and the stomach then gently insufflated with air. The antrum revealed gastritis with a few small gastric erosions without active bleeding. The stomach was further insufflated and the scope was then retroflexed and partially withdrawn. The cardia and fundus appeared normal. The scope was then withdrawn in the forward position. The esophagogastric junction was at 40 cm. The distal esophagus revealed LA class A esophagitis. The procedure was well tolerated and the patient was observed in recovery. Impressions: 1. Antral gastritis with a few small nonbleeding erosions. 2. Mild distal esophagitis. Plan: 1. Can resume diet. 2. Monitor H/H. 3. Resume ASA/plavix as indicated. 4. Consider other form of anticoagulation besides coumadin given this h/o supratherapuetic INR. 5. Continue with PPI bid. Can switch to PO. 6. Follow up in outpatient GI clinic for colonoscopy as outpatient.
--- NOTE | 2019-02-21 15:23 | Anesthesia Consultation ---
Anesthesia Consult and Med Hx Date of service: 02/21/19 (Patient cleared by cardiology ) - Airway Anesthetic Teeth Evaluation: Poor ROM Head & Neck: Adequate Mental/Hyoid Distance: Adequate Mallampati Class: Class II Intubation Access Assessment: Probably Good - Pulmonary Exam CTA: Yes - Cardiac Exam Anesthetic Concerns: EF 25%-30% - Pre-Operative Health Status ASA Pre-Surgery Classification: ASA4 Proposed Anesthetic Plan: MAC - Pulmonary Hx Smoking: Yes Hx Respiratory Symptoms: Yes SOB: Yes - Cardiovascular System Hx Hypertension: Yes Hx Coronary Artery Disease: Yes Hx Heart Attack/AMI: Yes (stent placed, 2017, Stent X2 3weeks ago) Hx Cardia Arrhythmia: Yes (AFIB ) - Central Nervous System Hx Psychiatric Problems: No
--- NOTE | 2019-02-21 15:25 | Anesthesia Day of Surgery ---
Anesthesia Day of Surgery - Day of Surgery Patient Examined: Yes Patient H&P Reviewed: Yes Patient is NPO: Yes Cardiac Clearance: Yes (Note in patient's chart. Cardiac clearance by cardiology )
[2019-02-21] MEDS ORDERED: D50W (25GM) Syringe IV PRN (15:30)
--- NOTE | 2019-02-21 16:27 | Progress Note ---
Assessment and Plan Assessment and plan: 1) GI bleed Likely due to NSAIDs and aspirin Patient was on Coumadin and INR of 6.22 yesterday and given vitamin K and currently INR is 1.36 GI consulted and will to do EGD tomorrow PRBC 2 units of transfusion, immobilize this morning was 7.7 Patient started on clear liquid diet, continue Protonix (2) Supratherapeutic INR Stop coumadin, Vit K, One unit of FFP INR is 1.36 Cardiology consulted whether to continue Coumadin or not (3) CAD (coronary artery disease) Cardiology consult requested Hold ASa and Plavix (4) Acute blood loss anemia transfused 2 units of blood and hemoglobin was 7.7 (5) IDDM (insulin dependent diabetes mellitus) - Sliding-scale insulin, ADA diet, Accu-Chek, adjust as needed. (6) CHF (congestive heart failure): EF was low last admission Cont Lasix (7) HTN (hypertension) Hold antihypertensives for now BP marginally low (8) HLD (hyperlipidemia): Hold statins for now (9) DVT prophylaxis on SCD's 02/21/19: non complaint on coumadin checks discussed with cardioloy will change to Plavix and Eliquis and stop asa and coumadin Follow outpt for colonoscopy Risk of non compliance discussed in detail History Interval history: Patient seen and examined, no new complaints. Hospitalist Physical - Physical exam Narrative exam: Not in cardiopulmonary distress. The patient appeared well nourished and normally developed. Vital signs as documented. Head exam is unremarkable. No scleral icterus . Neck is without jugular venous distension, thyromegaly, or carotid bruits. Lungs are clear to auscultation. Cardiac exam reveals regular rate and Rhythm. Abdominal exam reveals normal bowel sounds. Extremities are nonedematous and both femoral and pedal pulses are normal. 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 No focal weakness. - Constitutional Vitals: Temp Pulse Resp BP Pulse Ox 97.5 F L 83 21 122/61 96 02/21/19 15:01 02/21/19 15:31 02/21/19 15:31 02/21/19 15:31 02/21/19 15:31 General appearance: Present: no acute distress, well-nourished Results - Labs CBC & Chem 7: 02/22/19 07:11 02/22/19 07:11 Labs: Laboratory Last Values WBC 15.5 K/mm3 (4.5-11.0) H 02/20/19 08:32 RBC 2.58 M/mm3 (3.65-5.03) L 02/20/19 08:32 Hgb 8.8 gm/dl (11.8-15.2) L 02/20/19 20:38 Hct 25.8 % (35.5-45.6) L 02/20/19 20:38 MCV 87 fl (84-94) 02/20/19 08:32 MCH 30 pg (28-32) 02/20/19 08:32 MCHC 35 % (32-34) H 02/20/19 08:32 RDW 15.3 % (13.2-15.2) H 02/20/19 08:32 Plt Count 212 K/mm3 (140-440) 02/20/19 08:32 Lymph % (Auto) 15.0 % (13.4-35.0) 02/20/19 08:32 Navarro % (Auto) 5.8 % (0.0-7.3) 02/20/19 08:32 Eos % (Auto) 1.5 % (0.0-4.3) 02/20/19 08:32 Baso % (Auto) 1.0 % (0.0-1.8) 02/20/19 08:32 Lymph # 2.3 K/mm3 (1.2-5.4) 02/20/19 08:32 Navarro # 0.9 K/mm3 (0.0-0.8) H 02/20/19 08:32 Eos # 0.2 K/mm3 (0.0-0.4) 02/20/19 08:32 Baso # 0.2 K/mm3 (0.0-0.1) H 02/20/19 08:32 Add Manual Diff Complete 02/19/19 15:32 Total Counted 100 02/19/19 15:32 Seg Neutrophils % 76.7 % (40.0-70.0) H 02/20/19 08:32 Seg Neuts % (Manual) 73.0 % (40.0-70.0) H 02/19/19 15:32 Band Neutrophils % 4.0 % 02/19/19 15:32 Lymphocytes % (Manual) 17.0 % (13.4-35.0) 02/19/19 15:32 Reactive Lymphs % (Man) 0 % 02/19/19 15:32 Monocytes % (Manual) 5.0 % (0.0-7.3) 02/19/19 15:32 Eosinophils % (Manual) 0 % (0.0-4.3) 02/19/19 15:32 Basophils % (Manual) 1.0 % (0.0-1.8) 02/19/19 15:32 Metamyelocytes % 0 % 02/19/19 15:32 Myelocytes % 0 % 02/19/19 15:32 Promyelocytes % 0 % 02/19/19 15:32 Blast Cells % 0 % 02/19/19 15:32 Nucleated RBC % Not Reportable 02/19/19 15:32 Seg Neutrophils # 11.9 K/mm3 (1.8-7.7) H 02/20/19 08:32 Seg Neutrophils # Man 10.5 K/mm3 (1.8-7.7) H 02/19/19 15:32 Band Neutrophils # 0.6 K/mm3 02/19/19 15:32 Lymphocytes # (Manual) 2.4 K/mm3 (1.2-5.4) 02/19/19 15:32 Abs React Lymphs (Man) 0.0 K/mm3 02/19/19 15:32 Monocytes # (Manual) 0.7 K/mm3 (0.0-0.8) 02/19/19 15:32 Eosinophils # (Manual) 0.0 K/mm3 (0.0-0.4) 02/19/19 15:32 Basophils # (Manual) 0.1 K/mm3 (0.0-0.1) 02/19/19 15:32 Metamyelocytes # 0.0 K/mm3 02/19/19 15:32 Myelocytes # 0.0 K/mm3 02/19/19 15:32 Promyelocytes # 0.0 K/mm3 02/19/19 15:32 Blast Cells # 0.0 K/mm3 02/19/19 15:32 WBC Morphology Not Reportable 02/19/19 15:32 Hypersegmented Neuts Not Reportable 02/19/19 15:32 Hyposegmented Neuts Not Reportable 02/19/19 15:32 Hypogranular Neuts Not Reportable 02/19/19 15:32 Smudge Cells Not Reportable 02/19/19 15:32 Toxic Granulation Not Reportable 02/19/19 15:32 Toxic Vacuolation Not Reportable 02/19/19 15:32 Dohle Bodies Not Reportable 02/19/19 15:32 Pelger-Huet Anomaly Not Reportable 02/19/19 15:32 Moises Rods Not Reportable 02/19/19 15:32 Platelet Estimate Appears normal 02/19/19 15:32 Clumped Platelets Not Reportable 02/19/19 15:32 Plt Clumps, EDTA Not Reportable 02/19/19 15:32 Large Platelets Not Reportable 02/19/19 15:32 Giant Platelets Not Reportable 02/19/19 15:32 Platelet Satelliting Not Reportable 02/19/19 15:32 Plt Morphology Comment Not Reportable 02/19/19 15:32 RBC Morphology Not Reportable 02/19/19 15:32 Dimorphic RBCs Not Reportable 02/19/19 15:32 Polychromasia Few 02/19/19 15:32 Hypochromasia 1+ 02/19/19 15:32 Poikilocytosis Few 02/19/19 15:32 Anisocytosis 1+ 02/19/19 15:32 Microcytosis 1+ 02/19/19 15:32 Macrocytosis Not Reportable 02/19/19 15:32 Spherocytes Not Reportable 02/19/19 15:32 Pappenheimer Bodies Not Reportable 02/19/19 15:32 Sickle Cells Not Reportable 02/19/19 15:32 Target Cells Not Reportable 02/19/19 15:32 Tear Drop Cells Not Reportable 02/19/19 15:32 Ovalocytes Not Reportable 02/19/19 15:32 Helmet Cells Not Reportable 02/19/19 15:32 [place] Bodies Not Reportable 02/19/19 15:32 [place] Rings Not Reportable 02/19/19 15:32 [place] Cells Not Reportable 02/19/19 15:32 Bite Cells Not Reportable 02/19/19 15:32 Crenated Cell Not Reportable 02/19/19 15:32 Elliptocytes Not Reportable 02/19/19 15:32 Acanthocytes (Spur) Not Reportable 02/19/19 15:32 Rouleaux Not Reportable 02/19/19 15:32 Hemoglobin C Crystals Not Reportable 02/19/19 15:32 Schistocytes Not Reportable 02/19/19 15:32 Malaria parasites Not Reportable 02/19/19 15:32 Ankit Bodies Not Reportable 02/19/19 15:32 Hem Pathologist Commnt No 02/19/19 15:32 PT 17.6 Sec. (12.2-14.9) H 02/20/19 08:32 INR 1.36 (0.87-1.13) H 02/20/19 08:32 APTT 43.4 Sec. (24.2-36.6) H 02/19/19 15:32 Sodium 137 mmol/L (137-145) 02/20/19 08:32 Potassium 4.3 mmol/L (3.6-5.0) 02/20/19 08:32 Chloride 106.6 mmol/L (98-107) 02/20/19 08:32 Carbon Dioxide 19 mmol/L (22-30) L 02/20/19 08:32 Anion Gap 16 mmol/L 02/20/19 08:32 BUN 38 mg/dL (9-20) H 02/20/19 08:32 Creatinine 1.2 mg/dL (0.8-1.5) 02/20/19 08:32 Estimated GFR > 60 ml/min 02/20/19 08:32 BUN/Creatinine Ratio 32 % 02/20/19 08:32 Glucose 200 mg/dL (75-100) H 02/20/19 08:32 POC Glucose 224 (70-105) H 02/21/19 11:11 Hemoglobin A1c 9.8 % (4-6) H 02/20/19 08:32 Calcium 8.1 mg/dL (8.4-10.2) L 02/20/19 08:32 Total Bilirubin 0.40 mg/dL (0.1-1.2) 02/20/19 08:32 Direct Bilirubin < 0.2 mg/dL (0-0.2) 02/19/19 15:32 Indirect Bilirubin 0.1 mg/dL 02/19/19 15:32 AST 14 units/L (5-40) 02/20/19 08:32 ALT 10 units/L (7-56) 02/20/19 08:32 Alkaline Phosphatase 51 units/L (35-129) 02/20/19 08:32 Total Creatine Kinase 48 units/L (55-170) L 02/19/19 15:32 CK-MB (CK-2) 1.6 ng/mL (0.0-4.0) 02/19/19 15:32 CK-MB (CK-2) Rel Index 3.3 (0-4) 02/19/19 15:32 Troponin T 0.018 ng/mL (0.00-0.029) 02/19/19 20:04 Total Protein 5.6 g/dL (6.3-8.2) L 02/20/19 08:32 Albumin 2.9 g/dL (3.9-5) L 02/20/19 08:32 Albumin/Globulin Ratio 1.1 % 02/20/19 08:32 Triglycerides 151 mg/dL (2-149) H 02/19/19 15:32 Cholesterol 71 mg/dL (50-199) 02/19/19 15:32 LDL Cholesterol Direct 30 mg/dL (50-130) L 02/19/19 15:32 HDL Cholesterol 21 mg/dL (40-59) L 02/19/19 15:32 Cholesterol/HDL Ratio 3.38 % 02/19/19 15:32 Blood Type A POSITIVE 02/19/19 17:40 Antibody Screen Negative 02/19/19 17:40 Crossmatch See Detail 02/19/19 17:40 Active Medications - Current Medications Current Medications: Generic Name Dose Route Start Last Admin Trade Name Ava PRN Reason Stop Dose Admin Acetaminophen 650 mg 02/19/19 21:58 Tylenol PO Q4H PRN Pain MILD(1-3)/Fever >100.5/ESPINOZA Dextrose 50 ml 02/21/19 15:30 D50w (25gm) Syringe IV PRN PRN Hypoglycemia Hydromorphone HCl 0.5 mg 02/19/19 21:58 02/20/19 17:44 Dilaudid IV 0.5 mg Q3H PRN Administration Pain , Severe (7-10) Pantoprazole Sodium 80 mg/ 100 mls @ 10 mls/hr 02/19/19 19:00 02/21/19 02:48 Sodium Chloride IV 8 mg/hr DIRECT MELINA 10 mls/hr Administration 8 MG/HR Sodium Chloride 1,000 mls @ 75 mls/hr 02/19/19 22:00 02/20/19 01:51 Nacl 0.9% 1000 Ml IV 75 mls/hr DIRECT MELINA Administration Sodium Chloride 1,000 mls @ 50 mls/hr 02/21/19 12:00 02/21/19 14:22 Nacl 0.9% 1000 Ml IV 50 mls/hr DIRECT MELINA Administration Sodium Chloride 1,000 mls @ 50 mls/hr 02/21/19 14:00 Nacl 0.9% 1000 Ml IV DIRECT MELINA Insulin Human Lispro 0 unit 02/21/19 16:30 Humalog SUB-Q ACHS MELINA Protocol Ondansetron HCl 4 mg 02/19/19 21:58 Zofran IV Q8H PRN Nausea And Vomiting Sodium Chloride 10 ml 02/19/19 22:00 02/21/19 10:57 Sodium Chloride Flush Syringe 10 Ml IV 10 ml BID MELINA Administration Sodium Chloride 10 ml 02/19/19 21:58 Sodium Chloride Flush Syringe 10 Ml IV PRN PRN LINE FLUSH
[2019-02-21] MEDS: HumaLOG SUB-Q SCH ×2 (18:23→23:18)
[2019-02-21] MEDS: DILAUDID IV PRN (23:59)
[2019-02-22] MEDS: NACL 0.9% 1000 ML 1,000 ML IV SCH (06:08)
[2019-02-22 08:14] LABS: Hematocrit 23.6 % (35.5-45.6); Hemoglobin 8.1 gm/dl (11.8-15.2); Mean Corpuscular HGB Conc 34 % (32-34); Mean Corpuscular Volume 89 fl (84-94); Platelet Count 179 K/mm3 (140-440); Red Blood Count 2.66 M/mm3 (3.65-5.03); Red Cell Distribution Width 16.2 % (13.2-15.2)
[2019-02-22 08:42] LABS: BUN/Creatinine Ratio 17; Blood Urea Nitrogen 19 mg/dL (9-20); Calcium 7.9 mg/dL (8.4-10.2); Hemolysis Index 13
[2019-02-22] MEDS: HumaLOG SUB-Q SCH (08:48)
--- NOTE | 2019-02-22 09:43 | Discharge Summary ---
Providers - Providers Date of Admission: 02/19/19 18:27 Attending physician: LUANNE BARRIENTOS MD 02/19/19 Consult to Case Management [CONS] Routine Services Needed at Discharge: Home Health Services Notified:: case management 02/19/19 18:33 Consult to Physician [CONS] Routine Comment: Consulting Provider: HARPAL CHIN Physician Instructions: Reason For Exam: Melena, GI BLeed 02/20/19 06:48 Consult to Physician [CONS] Routine Comment: Consulting Provider: DEDE BELL Physician Instructions: Reason For Exam: CAD and Supra INR,GI Bleed [facility]: [facility] Hospital[facility] Reason for admission: symptomatic anemia Condition: Serious Hospital course: 64-year-old male presents to the emergency department via EMS from home with complaint of generalized weakness, feeling off balanced, excessive fatigue and continued chest discomfort for the past few days. He has a past medical history of insulin-dependent diabetes, coronary artery disease with cardiac stents, paroxysmal atrial fibrillation, CHF, ischemic cardiomyopathy. The patient was here about 2 weeks ago and had a cardiac catheterization at that time with 2 new stents placed. He has not taken anything for his symptoms prior to presentation today. His H/H at discharge was 14.1/41.4 2 weeks age and today it is 5.8/17.2. Noticed dark stools for 2 days.Feels lightheaded on standing. Patient had a recent admission for AFIB AND WAS STARTED ON COUMADIN ON discharge, he unfortnately did not comply with INR checks prior to this return At that admission the patient was noted to have * ECHO reviewed- EF 25-30%, mild MR, trace TR. * Patient is s/p cardiac cath 02/03, with PCI to RCA and OM2, started on coumadin During this admission he underwent reversal of the inr which was supratheraputic and then switched to Eliquis with ASA and coumadin discontinued. Counselling provided. He also underwent EGD which showed 1. Antral gastritis with a few small nonbleeding erosions. 2. Mild distal esophagitis. With recommendation to resume systemic anticoagulation and plan for outpatient colonoscopy. This also was discussed with the patient in detail and he verbalized understanding Discharge diagnosis: GI bleed Symotimatic Anemia Severe Anemia secondary to acute blood loss A. fib with RVR Secondary Coagulopathy Systolic Heart failure- stable Cardiomyopathy ?ischemic Coronary artery disease S/P Stent In the past - s/p CPI to Om2 and RCA during this admission Dyslipidemia Diabetes, uncontrolled Disposition: DC-01 TO HOME OR SELFCARE Time spent for discharge: 35 mins Core Measure Documentation - Palliative Care Palliative Care/ Comfort Measures: Not Applicable - Core Measures Any of the following diagnoses?: none - VTE Discharge Requirements Deep Vein Thrombosis/Pulmonary Embolism Present on Admission: No Exam - Physical Exam Narrative exam: Not in cardiopulmonary distress. The patient appeared well nourished and normally developed. Vital signs as documented. Head exam is unremarkable. No scleral icterus . Neck is without jugular venous distension, thyromegaly, or carotid bruits. Lungs are clear to auscultation. Cardiac exam reveals regular rate and Rhythm. Abdominal exam reveals normal bowel sounds. Extremities are nonedematous and both femoral and pedal pulses are normal. 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 No focal weakness. - Constitutional Vitals: Temp Pulse Resp BP Pulse Ox 98.0 F 86 20 123/56 97 02/22/19 07:25 02/22/19 07:25 02/22/19 07:25 02/22/19 07:25 02/22/19 07:25 Plan Activity: advance as tolerated, fall precautions Diet: low fat, diabetic Special Instructions: record daily BP diary, record blood sugar diary Follow up with: TRI PERERA MD [Primary Care Provider] - 3-5 Days RUMA LOPEZ MD [Staff Physician] - 7 Days HARPAL CHNI MD [Staff Physician] - 7 Days Prescriptions: Apixaban [Eliquis] 5 mg PO Q12HR #60 tablet Pantoprazole [Protonix] 40 mg PO QDAY #30 tablet
[2019-02-22] MEDS: SODIUM CHLORIDE FLUSH SYRINGE 10 ML IV SCH (09:50)
[2019-02-22] MEDS ORDERED: ELIQUIS PO SCH (10:00)
[2019-02-22] MEDS ORDERED: PLAVIX PO SCH (10:00)
[2019-02-22 10:46] VITALS: BP 127/55
--- NOTE | 2019-02-22 12:22 | Progress Note ---
Assessment and Plan S/p endoscopy. Per GI, ok for anticoagulation and antiplatelet therapy with plavix and eliquis starting yesterday. Eliquis and Plavix initiated. Cont home cardiac regimen in addition to Eliquis and Plavix. D/c ASA. Currently stable cardiac status. Pt may discharge home from cardiology standpoint. Follow up in our [place] office with Dr. Cantor on 03/15/2019 @ 1:00PM. The patient has been seen in conjunction with Dr. Thomsa who agrees with the assessment and plan of care. - Patient Problems (1) Symptomatic anemia Current Visit: Yes Status: Acute (2) GI bleed Current Visit: Yes Status: Acute (3) Supratherapeutic INR Current Visit: Yes Status: Acute (4) Paroxysmal atrial fibrillation Current Visit: Yes Status: Chronic (5) HTN (hypertension) Current Visit: Yes Status: Chronic Qualifiers: Hypertension type: essential hypertension Qualified Code(s): I10 - Essential (primary) hypertension (6) CAD (coronary artery disease) Current Visit: Yes Status: Chronic Qualifiers: Coronary Disease-Associated Artery/Lesion type: [place] artery (7) Stented coronary artery Current Visit: Yes Status: Chronic (8) Ischemic cardiomyopathy Current Visit: Yes Status: Chronic (9) Diabetes mellitus Current Visit: Yes Status: Chronic Qualifiers: Diabetes mellitus type: type 2 (10) HLD (hyperlipidemia) Current Visit: Yes Status: Chronic Qualifiers: Hyperlipidemia type: mixed hyperlipidemia Qualified Code(s): E78.2 - Mixed hyperlipidemia Subjective Date of service: 02/22/19 Principal diagnosis: symptomatic anemia Interval history: pt resting in bed, no current cardiac complaints. in SR on tele with bout of AFib noted overnight. Objective Last Vital Signs Temp 98.0 F 02/22/19 10:45 Pulse 88 02/22/19 10:45 Resp 20 02/22/19 10:45 BP 127/55 02/22/19 10:45 Pulse Ox 98 02/22/19 10:45 - Physical Examination General: No Apparent Distress HEENT: Positive: PERRL, Normocephaly, Mucus Membranes Moist Neck: Positive: neck supple, trachea midline Cardiac: Positive: Reg Rate and Rhythm, S1/S2 Lungs: Positive: Decreased Breath Sounds Neuro: Positive: Grossly Intact Abdomen: Positive: Soft. Negative: Tender Skin: Negative: Rash, Wound Musculoskeletal: No Pain Extremities: Absent: edema - Labs and Meds CBC 02/22/19 Range/Units 07:11 WBC 11.0 (4.5-11.0) K/mm3 RBC 2.66 L (3.65-5.03) M/mm3 Hgb 8.1 L (11.8-15.2) gm/dl Hct 23.6 L (35.5-45.6) % Plt Count 179 (140-440) K/mm3 Comprehensive Metabolic Panel 02/22/19 Range/Units 07:11 Sodium 140 (137-145) mmol/L Potassium 4.3 (3.6-5.0) mmol/L Chloride 107.3 H (98-107) mmol/L Carbon Dioxide 24 (22-30) mmol/L BUN 19 (9-20) mg/dL Creatinine 1.1 (0.8-1.5) mg/dL Glucose 141 H (75-100) mg/dL Calcium 7.9 L (8.4-10.2) mg/dL - Imaging and Cardiology EKG: report reviewed, image reviewed Echo: report reviewed (01/2019: EF 25-30%, mild MR, trace TR. ) Cardiac cath: report reviewed (02/03/2019: left main patent, lad prox stent patent, mid stent patent, circ patent, ramus small caliber diffusely diseased, OM1 patent, PCI of OM2 with [place], PCI of prox RCA )
[2019-02-22] MEDS ORDERED: PROTONIX PO SCH (22:00)
== END 2019-02-22 13:05 | disposition home or self-care (01) | DRG 378 ==
LOC: ED 14:49 → 4A 18:27
PROVIDERS: ADMIT Internal Medicine; ATTEND Internal Medicine
PROC: 30233N1 Transfusion of Nonautologous Red Blood Cells into Peripheral Vein, Percutaneous Approach (ICD-10-PCS; 2019-02-19)
PROC: 30233L1 Transfusion of Nonautologous Fresh Plasma into Peripheral Vein, Percutaneous Approach (ICD-10-PCS; 2019-02-20)
PROC: 30233K1 Transfusion of Nonautologous Frozen Plasma into Peripheral Vein, Percutaneous Approach (ICD-10-PCS; 2019-02-20)
PROC: 0DJ08ZZ Inspection of Upper Intestinal Tract, Via Natural or Artificial Opening Endoscopic (ICD-10-PCS; principal; 2019-02-21)
DX: K29.61 Other gastritis with bleeding (principal); D62 Acute posthemorrhagic anemia; D68.8 Other specified coagulation defects; I50.40 Unspecified combined systolic (congestive) and diastolic (congestive) heart failure; E11.9 Type 2 diabetes mellitus without complications; I25.10 Atherosclerotic heart disease of native coronary artery without angina pectoris; I11.0 Hypertensive heart disease with heart failure; I48.0 Paroxysmal atrial fibrillation; I25.5 Ischemic cardiomyopathy; F17.200 Nicotine dependence, unspecified, uncomplicated; E78.2 Mixed hyperlipidemia; K20.8 Other esophagitis; I25.2 Old myocardial infarction; Z95.5 Presence of coronary angioplasty implant and graft; Z79.4 Long term (current) use of insulin; Z79.82 Long term (current) use of aspirin; Z79.899 Other long term (current) drug therapy
CPT/HCPCS: 36415; 36430; 70450; 71045; 74019; 80048; 80053; 80061; 80076; 82550; 82553; 82962; 83036; 84484; 85007; 85014; 85018; 85025; 85027; 85610; 85730; 86850; 86900; 86901; 86920; 93005; 93010; G0378; C9113; J1170; J1815; J1940; J2250; J2704; J3010; J3430; J7030; P9016; P9017

== ENCOUNTER 2019-03-29 13:16 | Emergency (ER) | payer SELFPAY ==
--- NOTE | 2019-03-29 13:38 | Emergency Department Report ---
Chief Complaint: Dyspnea/Respdistress Stated Complaint: ALTHEA/SWOLLEN FEET Time Seen by Provider: 03/29/19 13:35 - HPI History of Present Illness: weak sob swelling 2 cardiac stents 2 w ago not taking all meds because out pale/diaphoretic/sob to main MSE screening note: Focused history and physical exam performed. Due to findings the following was ordered: ED Disposition for MSE Condition: Stable
[2019-03-29 13:55] LABS: Basophils # (Auto) 0.1 K/mm3 (0.0-0.1); Basophils % (Auto) 0.7 % (0.0-1.8); Eosinophils # (Auto) 0.1 K/mm3 (0.0-0.4); Eosinophils % (Auto) 1.5 % (0.0-4.3); Hematocrit 21.2 % (35.5-45.6); Hemoglobin 6.5 gm/dl (11.8-15.2); Lymphocytes # (Auto) 1.5 K/mm3 (1.2-5.4); Lymphocytes % (Auto) 16.4 % (13.4-35.0); Mean Corpuscular HGB Conc 31 % (32-34); Mean Corpuscular Volume 78 fl (84-94); Monocytes % (Auto) 10.6 % (0.0-7.3); Platelet Count 294 K/mm3 (140-440); Red Blood Count 2.72 M/mm3 (3.65-5.03); Red Cell Distribution Width 17.4 % (13.2-15.2)
[2019-03-29 14:08] LABS: INR 1.04 (0.87-1.13)
[2019-03-29 14:09] LABS: Partial Thromboplastin Time 28.4 Sec. (24.2-36.6)
[2019-03-29 14:11] LABS: Creatine Kinase MB 3.4 ng/mL (0.0-4.0)
[2019-03-29 14:14] LABS: Alanine Aminotransferase 11 units/L (7-56); Albumin 3.4 g/dL (3.9-5); BUN/Creatinine Ratio 17; Blood Urea Nitrogen 19 mg/dL (9-20); Hemolysis Index 0
--- NOTE | 2019-03-29 14:34 | XRay Report ---
Chest 2 views: History: Dyspnea. Findings: Normal cardiomediastinal silhouette. Trachea is midline. Evidence of COPD. No acute consolidation. Blunting of left angle from pleural thickening. Impression: COPD. No acute lung changes.
--- NOTE | 2019-03-29 16:19 | Emergency Department Report ---
- General Chief complaint: Dyspnea/Respdistress Stated complaint: ALTHEA/SWOLLEN FEET Time Seen by Provider: 03/29/19 13:35 Source: patient Mode of arrival: Ambulatory Limitations: No Limitations - History of Present Illness Initial comments: Mr. Tejeda is a 64 yo male with hx of HTN, DM, anemia, GI bleed, CAD, NSTEMI, Atrial fibrillation tobacco abuse who presents with 2 weeks of generalized malaise, dyspnea, productive cough. Denies dark stools. Does not have a PCP. No current chest pain. Has had recent PCP with stents here at [facility] and [facility]. According to electronic medical record, echocardiogram ejection fraction 25-30% Currently taking aspirin and Plavix. Currently ran out of Owen HINSON Complaint: generalized weakness -: week(s) (2) Location: generalized Severity scale (0 -10): 7 Improves with: none Worsens with: exertion, other Context: recent illness, history of similar Associated Symptoms: shortness of breath, other (feet swelling, shortness of breath) - Related Data Previous Rx's Medication Instructions Recorded Last Taken Type AtorvaSTATin [Lipitor] 80 mg PO QHS #30 tablet 02/04/19 1 Day Ago Rx ~02/18/19 Clopidogrel [Plavix] 75 mg PO QDAY #30 tablet 02/04/19 1 Day Ago Rx ~02/18/19 Furosemide [Lasix TAB] 40 mg PO QDAY #30 tablet 02/04/19 1 Day Ago Rx ~02/18/19 Insulin NPH/Regular [NovoLIN 70/30] 10 unit SUB-Q BIDDIAB 30 Days 02/04/19 1 Day Ago Rx units ~02/18/19 Lisinopril [Zestril TAB] 5 mg PO QDAY #30 tablet 02/04/19 1 Day Ago Rx ~02/18/19 Metoprolol [Lopressor TAB] 50 mg PO BID #60 tablet 02/04/19 1 Day Ago Rx ~02/18/19 Apixaban [Eliquis] 5 mg PO Q12HR #60 tablet 02/22/19 Unknown Rx Pantoprazole [Protonix] 40 mg PO QDAY #30 tablet 02/22/19 Unknown Rx Doxycycline Hyclate [Doxycycline 100 mg PO Q12HR 10 Days #20 tab 03/29/19 Unknown Rx Hyclate TAB] Allergies Allergy/AdvReac Type Severity Reaction Status Date / Time No Known Allergies Allergy Verified 03/29/19 13:18 ED Review of Systems ROS: Stated complaint: ALTHEA/SWOLLEN FEET Other details as noted in HPI Comment: All other systems reviewed and negative Constitutional: malaise Respiratory: cough, shortness of breath ED Past Medical Hx - Past Medical History Previous Medical History?: Yes Hx Hypertension: Yes Hx Heart Attack/AMI: Yes (stent placed, 2017, Stent X2 3weeks ago) Hx Diabetes: Yes - Surgical History Past Surgical History?: Yes Additional Surgical History: stent placed - Social History Smoking Status: Current Every Day Smoker 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 History: 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, 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 - Medications Home Medications: Home Medications Medication Instructions Recorded Confirmed Last Taken Type AtorvaSTATin [Lipitor] 80 mg PO QHS #30 tablet 02/04/19 02/19/19 1 Day Ago Rx ~02/18/19 Clopidogrel [Plavix] 75 mg PO QDAY #30 tablet 02/04/19 02/19/19 1 Day Ago Rx ~02/18/19 Furosemide [Lasix TAB] 40 mg PO QDAY #30 tablet 02/04/19 02/19/19 1 Day Ago Rx ~02/18/19 Insulin NPH/Regular [NovoLIN 70/30] 10 unit SUB-Q BIDDIAB 30 Days 02/04/19 02/19/19 1 Day Ago Rx units ~02/18/19 Lisinopril [Zestril TAB] 5 mg PO QDAY #30 tablet 02/04/19 02/19/19 1 Day Ago Rx ~02/18/19 Metoprolol [Lopressor TAB] 50 mg PO BID #60 tablet 02/04/19 02/19/19 1 Day Ago Rx ~02/18/19 Apixaban [Eliquis] 5 mg PO Q12HR #60 tablet 02/22/19 Unknown Rx Pantoprazole [Protonix] 40 mg PO QDAY #30 tablet 02/22/19 Unknown Rx Doxycycline Hyclate [Doxycycline 100 mg PO Q12HR 10 Days #20 tab 03/29/19 Unknown Rx Hyclate TAB] ED Physical Exam - General Limitations: No Limitations General appearance: alert, in no apparent distress - Head Head exam: Present: atraumatic, normocephalic - Eye Eye exam: Present: normal appearance - ENT ENT exam: Present: mucous membranes moist - Neck Neck exam: Present: normal inspection, full ROM - Respiratory Respiratory exam: Present: normal lung sounds bilaterally. Absent: respiratory distress, wheezes, rales, rhonchi - Cardiovascular Cardiovascular Exam: Present: regular rate, normal rhythm, normal heart sounds. Absent: systolic murmur, diastolic murmur, rubs, gallop - GI/Abdominal GI/Abdominal exam: Present: soft, normal bowel sounds. Absent: distended, tenderness, guarding, rebound - Rectal Rectal exam: Present: deferred - Extremities Exam Extremities exam: Present: pedal edema - Back Exam Back exam: Present: normal inspection - Neurological Exam Neurological exam: Present: alert, oriented X3 - Psychiatric Psychiatric exam: Present: normal affect, normal mood - Skin Skin exam: Present: warm, dry, intact, normal color. Absent: rash ED Course Vital Signs 03/29/19 03/29/19 03/29/19 13:42 14:54 15:00 Temperature 97.9 F Pulse Rate 96 H 86 89 Respiratory 18 25 H 17 Rate Blood Pressure 112/93 Blood Pressure 119/63 [Right] O2 Sat by Pulse 99 96 Oximetry ED Medical Decision Making - Lab Data Result diagrams: 03/29/19 13:43 03/29/19 13:43 - Radiology Data Radiology results: report reviewed Radiology impression AP portable chest radiograph COPD - Medical Decision Making Mr. Mcgowan presents with malaise, weakness, shortness breath, cough and feet swelling. Concern for severe anemia which has been persistent for the past 2 months. Had a recent GI evaluation that revealed esophagitis gastric erosions. Alternative anticoagulation had been recommended by GI consult according to electronic medical record. Also concerned for undiagnosed COPD. Patient understands the harm of continued tobacco abuse. With 2 weeks of symptoms and persistent cough, antibiotics are indicated. Prescribed doxycycline With recent myocardial infarction, ischemic cardiomyopathy is of concern. Mr. Mcgowan declined hospital dmission. He also declined blood transfusion. He is eligible for Medicare next month. He will obtain primary care time. Discharged home in fair condition. Critical care attestation.: If time is entered above; I have spent that time in minutes in the direct care of this critically ill patient, excluding procedure time. ED Disposition Clinical Impression: Acute bronchitis, Ischemic cardiomyopathy, Symptomatic anemia, Generalized weakness, CHF (congestive heart failure) Disposition: TO HOME OR SELFCARE Is pt being admited?: No Does the pt Need Aspirin: No Condition: Stable Instructions: Acute Bronchitis (ED), Anemia (ED), Heart Failure (ED) Prescriptions: Doxycycline Hyclate [Doxycycline Hyclate TAB] 100 mg PO Q12HR 10 Days #20 tab
[2019-03-29] MEDS ORDERED: VIBRAMYCIN PO ONE (16:20)
[2019-03-29 16:58] VITALS: BP 131/65
== END 2019-03-29 16:59 | disposition home or self-care (01) ==
LOC: ED 13:16
DX: J20.9 Acute bronchitis, unspecified (principal); I11.0 Hypertensive heart disease with heart failure; I50.9 Heart failure, unspecified; I25.2 Old myocardial infarction; I25.5 Ischemic cardiomyopathy; D64.9 Anemia, unspecified; E11.9 Type 2 diabetes mellitus without complications; F17.200 Nicotine dependence, unspecified, uncomplicated; Z95.5 Presence of coronary angioplasty implant and graft; Z79.4 Long term (current) use of insulin
CPT/HCPCS: 36415; 71046; 80053; 82550; 82553; 83880; 84484; 85025; 85610; 85730; 86850; 86900; 86901; 93005; 93010

== ENCOUNTER 2019-09-29 05:29 | Emergency (ER) | payer SELFPAY ==
[2019-09-29] MEDS ORDERED: ONDANSETRON 4 MG/2 ML INJ IV ONE (05:52)
--- NOTE | 2019-09-29 05:55 | Event Note ---
ED Screening Note ED Screening Note: This initial assessment/diagnostic orders/clinical plan/treatment(s) is/are subject to change based on patients health status, clinical progression and re- assessment by fellow clinical providers in the ED. Further treatment and workup at subsequent clinical providers discretion. Patient/guardian urged not to elope from the ED as their condition may be serious if not clinically assessed and managed. Patient is a 64-year-old gentleman who is presenting with right flank pain. Patient states he woke up with nausea vomiting and pain in the right flank. Patient was worried about kidney stones as well as appendicitis. Patient received pain management via ambulance prior to arrival in his pain is improved. Initial orders include: Laboratory studies including chemistries CBC and a urinalysis. CT of the abdomen and pelvis without contrast been ordered.
[2019-09-29] MEDS ORDERED: KETOROLAC 30 MG/1 ML INJ IV ONE (06:17)
[2019-09-29 06:25] LABS: Basophils # (Auto) 0.1 K/mm3 (0.0-0.1); Basophils % (Auto) 0.5 % (0.0-1.8); Eosinophils # (Auto) 0.1 K/mm3 (0.0-0.4); Eosinophils % (Auto) 0.5 % (0.0-4.3); Hematocrit 42.3 % (35.5-45.6); Lymphocytes # (Auto) 1.1 K/mm3 (1.2-5.4); Lymphocytes % (Auto) 8.1 % (13.4-35.0); Mean Corpuscular HGB Conc 33 % (32-34); Mean Corpuscular Volume 88 fl (84-94); Monocytes # (Auto) 0.9 K/mm3 (0.0-0.8); Monocytes % (Auto) 6.6 % (0.0-7.3); Red Blood Count 4.81 M/mm3 (3.65-5.03); Red Cell Distribution Width 13.9 % (13.2-15.2)
--- NOTE | 2019-09-29 06:45 | Cat Scan Report ---
CT ABDOMEN AND PELVIS WITHOUT CONTRAST INDICATION / CLINICAL INFORMATION: right flank pain. TECHNIQUE: Axial CT images were obtained through the abdomen and pelvis without IV contrast. All CT scans at [facility] location are performed using CT dose reduction for ALARA by means of automated exposure control. COMPARISON: None available. FINDINGS: LOWER CHEST: No significant abnormality. LIVER: No significant abnormality. GALLBLADDER: Tiny gallstones without gallbladder inflammation. BILE DUCTS: No significant abnormality. PANCREAS: No significant abnormality. SPLEEN: No significant abnormality. ADRENALS: No significant abnormality. RIGHT KIDNEY and URETER: Multiple small nonobstructing intrarenal stones. 4 mm stone at the right ure terovesical junction producing mild right hydroureteronephrosis. LEFT KIDNEY and URETER: Multiple small nonobstructing stones. No ureteral stone or hydronephrosis. STOMACH and SMALL BOWEL: No significant abnormality. COLON: Mild diverticulosis without inflammation. APPENDIX: No significant abnormality. PERITONEUM: No free fluid. No free air. No fluid collection. LYMPH NODES: No significant adenopathy. AORTA and ARTERIES: Mild atherosclerotic calcification without acute abnormality. IVC and VEINS: No significant abnormality. URINARY BLADDER: Moderately distended but no acute abnormality. REPRODUCTIVE ORGANS: No significant abnormality. ADDITIONAL FINDINGS: None. SKELETAL SYSTEM: No significant abnormality. IMPRESSION: 1. 4 mm stone at the right ureterovesical junction producing mild right hydroureteronephrosis. 2. Bilateral nephrolithiasis. Signer Name: Alfonso Bernal MD Signed: 09/29/2019 6:40 AM Workstation Name: [id number]
[2019-09-29 07:14] LABS: Albumin 3.3 g/dL (3.9-5); Calcium 9.2 mg/dL (8.4-10.2)
--- NOTE | 2019-09-29 07:21 | Emergency Department Report ---
ED Abdominal Pain HPI - General Chief Complaint: Abdominal Pain Stated Complaint: ABD PAIN/FLANK PAIN Time Seen by Provider: 09/29/19 05:52 Source: EMS Mode of arrival: Stretcher Limitations: No Limitations - History of Present Illness Initial Comments: This 64-year-old man who experienced right lower quadrant pain radiating to his back. He is transported via EMS. He states he is given medicine by EMS which was of benefit. He is experiencing a little discomfort now. He has already had a CT performed. He states he has no prior knowledge of kidney stones. He did have some nausea. However this is resolving now. MD Complaint: abdominal pain -: Sudden Location: RLQ Radiation: R flank Migration to: no migration Severity scale (0 -10): 7 Quality: aching Consistency: other (improved) Improves With: nothing Worsens With: nothing Associated Symptoms: denies other symptoms, nausea - Related Data Previous Rx's Medication Instructions Recorded Last Taken Type AtorvaSTATin [Lipitor] 80 mg PO QHS #30 tablet 02/04/19 1 Day Ago Rx ~02/18/19 Clopidogrel [Plavix] 75 mg PO QDAY #30 tablet 02/04/19 1 Day Ago Rx ~02/18/19 Furosemide [Lasix TAB] 40 mg PO QDAY #30 tablet 02/04/19 1 Day Ago Rx ~02/18/19 Insulin NPH/Regular [NovoLIN 70/30] 10 unit SUB-Q BIDDIAB 30 Days 02/04/19 1 Day Ago Rx units ~02/18/19 Lisinopril [Zestril TAB] 5 mg PO QDAY #30 tablet 02/04/19 1 Day Ago Rx ~02/18/19 Metoprolol [Lopressor TAB] 50 mg PO BID #60 tablet 02/04/19 1 Day Ago Rx ~02/18/19 Pantoprazole [Protonix] 40 mg PO QDAY #30 tablet 02/22/19 Unknown Rx HYDROcodone/APAP 5-325 [[place] 1 each PO Q4HR PRN #7 tablet 09/29/19 Unknown Rx 5/325] Ondansetron [Zofran Odt] 4 mg PO Q8HR #7 tab.rapdis 09/29/19 Unknown Rx Allergies Allergy/AdvReac Type Severity Reaction Status Date / Time No Known Allergies Allergy Verified 03/29/19 13:18 ED Review of Systems ROS: Stated complaint: ABD PAIN/FLANK PAIN Other details as noted in HPI Constitutional: denies: chills, fever Eyes: denies: eye pain, eye discharge, vision change ENT: denies: ear pain, throat pain Respiratory: denies: cough, shortness of breath, wheezing Cardiovascular: denies: chest pain, palpitations Endocrine: no symptoms reported Gastrointestinal: abdominal pain, nausea. denies: diarrhea Genitourinary: denies: urgency, dysuria Musculoskeletal: denies: back pain, joint swelling, arthralgia Skin: denies: rash, lesions Neurological: denies: headache, weakness, paresthesias Psychiatric: denies: anxiety, depression Hematological/Lymphatic: denies: easy bleeding, easy bruising ED Past Medical Hx - Past Medical History Previous Medical History?: Yes Hx Hypertension: Yes Hx Heart Attack/AMI: Yes (stent placed, 2017, Stent X2 3weeks ago) Hx Diabetes: Yes - Surgical History Past Surgical History?: Yes Additional Surgical History: stent placed - Social History Smoking Status: Current Every Day Smoker - Medications Home Medications: Home Medications Medication Instructions Recorded Confirmed Last Taken Type AtorvaSTATin [Lipitor] 80 mg PO QHS #30 tablet 02/04/19 09/29/19 1 Day Ago Rx ~02/18/19 Clopidogrel [Plavix] 75 mg PO QDAY #30 tablet 02/04/19 09/29/19 1 Day Ago Rx ~02/18/19 Furosemide [Lasix TAB] 40 mg PO QDAY #30 tablet 02/04/19 09/29/19 1 Day Ago Rx ~02/18/19 Insulin NPH/Regular [NovoLIN 70/30] 10 unit SUB-Q BIDDIAB 30 Days 02/04/19 09/29/19 1 Day Ago Rx units ~02/18/19 Lisinopril [Zestril TAB] 5 mg PO QDAY #30 tablet 02/04/19 09/29/19 1 Day Ago Rx ~02/18/19 Metoprolol [Lopressor TAB] 50 mg PO BID #60 tablet 02/04/19 09/29/19 1 Day Ago Rx ~02/18/19 Pantoprazole [Protonix] 40 mg PO QDAY #30 tablet 02/22/19 09/29/19 Unknown Rx HYDROcodone/APAP 5-325 [[place] 1 each PO Q4HR PRN #7 tablet 09/29/19 Unknown Rx 5/325] Ondansetron [Zofran Odt] 4 mg PO Q8HR #7 tab.rapdis 09/29/19 Unknown Rx ED Physical Exam - General Limitations: No Limitations General appearance: alert, in no apparent distress - Head Head exam: Present: atraumatic, normocephalic - Eye Eye exam: Present: normal appearance. Absent: scleral icterus - ENT ENT exam: Present: mucous membranes moist - Neck Neck exam: Present: normal inspection - Respiratory Respiratory exam: Present: normal lung sounds bilaterally. Absent: respiratory distress - Cardiovascular Cardiovascular Exam: Present: regular rate, normal rhythm. Absent: systolic murmur, diastolic murmur, rubs, gallop - GI/Abdominal GI/Abdominal exam: Present: soft, normal bowel sounds. Absent: distended, tenderness, guarding, rebound, rigid, organomegaly, mass, bruit, pulsatile mass, hernia - Rectal Rectal exam: Present: deferred - Extremities Exam Extremities exam: Present: normal inspection - Back Exam Back exam: Present: normal inspection. Absent: CVA tenderness (R), CVA tenderness (L), muscle spasm, paraspinal tenderness, vertebral tenderness - Neurological Exam Neurological exam: Present: alert, oriented X3, CN II-XII intact. Absent: motor sensory deficit - Psychiatric Psychiatric exam: Present: normal affect, normal mood - Skin Skin exam: Present: warm, dry, intact, normal color. Absent: rash ED Course Vital Signs 09/29/19 05:39 Temperature 97.4 F L Pulse Rate 76 Respiratory 19 Rate Blood Pressure 159/75 [Right] O2 Sat by Pulse 97 Oximetry - Reevaluation(s) Reevaluation #1: Comfortable without significant recurrent pain. 09/29/19 08:54 ED Medical Decision Making - Lab Data Result diagrams: 09/29/19 06:05 09/29/19 06:05 Laboratory Results - last 24 hr 09/29/19 09/29/19 06:05 06:05 WBC 13.8 H RBC 4.81 Hgb 14.0 Hct 42.3 MCV 88 MCH 29 MCHC 33 RDW 13.9 Lymph % (Auto) 8.1 L [place] % (Auto) 6.6 Eos % (Auto) 0.5 Baso % (Auto) 0.5 Lymph # 1.1 L [place] # 0.9 H Eos # 0.1 Baso # 0.1 Seg Neutrophils % 84.3 H Seg Neutrophils # 11.6 H Sodium 136 L Potassium 4.6 Chloride 100.9 Carbon Dioxide 22 Anion Gap 18 BUN 20 Creatinine 1.4 Estimated GFR 51 BUN/Creatinine Ratio 14 Glucose 237 H Calcium 9.2 Total Bilirubin 0.50 AST 14 ALT 17 Alkaline Phosphatase 109 Total Protein 7.0 Albumin 3.3 L Albumin/Globulin Ratio 0.9 Lipase 28 Laboratory Results - last 24 hr 09/29/19 09/29/19 06:05 06:05 WBC 13.8 H RBC 4.81 Hgb 14.0 Hct 42.3 MCV 88 MCH 29 MCHC 33 RDW 13.9 Lymph % (Auto) 8.1 L [place] % (Auto) 6.6 Eos % (Auto) 0.5 Baso % (Auto) 0.5 Lymph # 1.1 L [place] # 0.9 H Eos # 0.1 Baso # 0.1 Seg Neutrophils % 84.3 H Seg Neutrophils # 11.6 H Sodium 136 L Potassium 4.6 Chloride 100.9 Carbon Dioxide 22 Anion Gap 18 BUN 20 Creatinine 1.4 Estimated GFR 51 BUN/Creatinine Ratio 14 Glucose 237 H Calcium 9.2 Total Bilirubin 0.50 AST 14 ALT 17 Alkaline Phosphatase 109 Total Protein 7.0 Albumin 3.3 L Albumin/Globulin Ratio 0.9 Lipase 28 Laboratory Results - last 24 hr 09/29/19 09/29/19 09/29/19 06:05 06:05 08:11 WBC 13.8 H RBC 4.81 Hgb 14.0 Hct 42.3 MCV 88 MCH 29 MCHC 33 RDW 13.9 Plt Count 206 Lymph % (Auto) 8.1 L [place] % (Auto) 6.6 Eos % (Auto) 0.5 Baso % (Auto) 0.5 Lymph # 1.1 L [place] # 0.9 H Eos # 0.1 Baso # 0.1 Seg Neutrophils % 84.3 H Seg Neutrophils # 11.6 H Sodium 136 L Potassium 4.6 Chloride 100.9 Carbon Dioxide 22 Anion Gap 18 BUN 20 Creatinine 1.4 Estimated GFR 51 BUN/Creatinine Ratio 14 Glucose 237 H Calcium 9.2 Total Bilirubin 0.50 AST 14 ALT 17 Alkaline Phosphatase 109 Total Protein 7.0 Albumin 3.3 L Albumin/Globulin Ratio 0.9 Lipase 28 Urine Color Yellow Urine Turbidity Clear Urine pH 5.0 Ur Specific [place] 1.010 Urine Protein 100 mg/dl Urine Glucose (UA) 50 Urine Ketones Neg Urine Blood Sm Urine Nitrite Neg Urine Bilirubin Neg Urine Urobilinogen < 2.0 Ur Leukocyte Esterase Neg Urine WBC (Auto) 1.0 Urine RBC (Auto) 4.0 U Epithel Cells (Auto) < 1.0 Urine Mucus Few - Radiology Data Radiology results: report reviewed (bilateral nephrolithiasis, 4 mm stone at the right UVJ with mild hydro-) Critical care attestation.: If time is entered above; I have spent that time in minutes in the direct care of this critically ill patient, excluding procedure time. ED Disposition Clinical Impression: Renal colic on right side, Bilateral nephrolithiasis Disposition: TO HOME OR SELFCARE Is pt being admited?: No Does the pt Need Aspirin: No Condition: Stable Instructions: Renal Colic (ED), Kidney Stones (ED) Additional Instructions: Further care and evaluation per [facility]. Rx as needed for pain and nausea. Return as needed. Prescriptions: HYDROcodone/APAP 5-325 [[place] 5/325] 1 each PO Q4HR PRN #7 tablet PRN Reason: Pain Ondansetron [Zofran Odt] 4 mg PO Q8HR #7 tab.rapdis Referrals: PRIMARY CAREMD [Primary Care Provider] - 3-5 Days [facility] [Provider Group] - 2-3 Days Time of Disposition: 08:55
[2019-09-29 08:30] LABS: Bilirubin,Urine NEG (Negative); Blood,Urine SM (Negative); Color,Urine Yellow (Yellow); Mucus,Urine FEW /HPF; Urobilinogen,Urine < 2.0 mg/dL (<2.0)
[2019-09-29 08:34] LABS: Platelet Count 206 K/mm3 (140-440)
[2019-09-29 09:13] VITALS: BP 160/91
== END 2019-09-29 09:31 | disposition home or self-care (01) ==
LOC: ED 05:29
DX: N23 Unspecified renal colic (principal); N20.0 Calculus of kidney; I10 Essential (primary) hypertension; I25.2 Old myocardial infarction; F17.200 Nicotine dependence, unspecified, uncomplicated; Z95.5 Presence of coronary angioplasty implant and graft; Z79.4 Long term (current) use of insulin; Z79.899 Other long term (current) drug therapy
CPT/HCPCS: 36415; 74176; 80053; 81001; 83690; 85025; 96374; 96375; 99284; J1885; J2405